=== PATIENT | male | born 1960 | race Caucasian/White ===

== ENCOUNTER → 2017-03-24 | Outpatient (CLI) | payer OTHER ==
[~2017-03-24] MED LIST: AMOCLA500 PO; ASCO500 PO; BISA10S PR; CIME400 PO; Colace100 MG PO; Fludrocortison0.1 MG PO; HYDACE5 PO; HYDCHL25 PO; LIOT5 PO; MULTI-VITAMIN1 EACH PO; OXYC10ER PO; OXYC10TA19 PO; OXYC30ER PO; Prosource30 ML PO; SYNTHROID25 MCG PO
[2017-03-24 09:55] LABS: Hematocrit 37.7 % (37.0-53.0); Hemoglobin 12.5 g/dL (13.5-17.5); Mean Corpuscular HGB 28.9 pg (26.0-34.0); Mean Corpuscular HGB Conc 33.2 g/dL (31.5-36.5); Mean Corpuscular Volume 87 fL (80-100); Mean Platelet Volume 9.9 fL (9.1-12.4); Platelet Count 318 K/mm3 (150-400); RDW Coefficient Variation 15.7 % (11.7-14.2); RDW Standard Deviation 49.3 fL (35.1-46.3); Red Blood Cell Count 4.32 M/mm3 (4.30-5.90); White Blood Cell Count 11.05 K/mm3 (4.00-11.30)
[2017-03-24 10:13] LABS: Alanine Aminotransfer (ALT/SGP 19 U/L (12-78); Albumin, Blood 2.5 g/dL (3.4-5.0); Albumin/Globulin Ratio 0.8 (0.8-1.8); Alk Phos 70 U/L (50-136); Anion Gap 9 mmol/L (6-16); Aspartate Aminotrans (AST/SGOT 9 U/L (12-37); Bilirubin, Total 0.3 mg/dL (0.1-1.0); Blood Urea Nitrogen 7 mg/dL (8-24); Bun/Creatinine Ratio 22.6 (12.0-20.0); CO2, Blood 29 mmol/L (21-32); Calcium, Blood 8.1 mg/dL (8.5-10.1); Chloride, Blood 105 mmol/L (98-108); Creatinine, Blood 0.31 mg/dL (0.60-1.20); Glomerular Filtration Rate >60 (60-); Glucose, Blood 108 mg/dL (70-99); Potassium, Blood 3.4 mmol/L (3.5-5.5); Sodium, Blood 143 mmol/L (136-145); Total Protein, Blood 5.5 g/dL (6.4-8.2)
[2017-03-24 10:16] LABS: Thyroid Stimulating Hormone 0.995 uIU/mL (0.360-4.800)
== END | disposition home or self-care (01) ==
LOC: LAB UVN 09:37
PROVIDERS: Family Medicine
DX: G82.52 Quadriplegia, C1-C4 incomplete (principal); N31.9 Neuromuscular dysfunction of bladder, unspecified; L89.154 Pressure ulcer of sacral region, stage 4
CPT/HCPCS: 80053; 84443; 85027

== ENCOUNTER 2017-05-06 10:22 | Inpatient (IN) | payer OTHER ==
[~2017-05-06] VITALS: Ht 175.3 cm; Wt 86.5 kg
[~2017-05-06 10:22] MED LIST changes: -ASCO500 PO; -BISA10S PR; -CIME400 PO; -Colace100 MG PO; -Fludrocortison0.1 MG PO; -HYDCHL25 PO; -LIOT5 PO; -MULTI-VITAMIN1 EACH PO; -OXYC10ER PO; -OXYC10TA19 PO; -OXYC30ER PO; -Prosource30 ML PO; -SYNTHROID25 MCG PO
[2017-05-06 10:43] LABS: BASOPHILS ABSOLUTE AUTO 0.06 K/mm3 (0.00-0.23); BASOPHILS PERCENT AUTO 0 % (0-2); EOSINOPHILS ABSOLUTE AUTO 0.16 K/mm3 (0.00-0.68); EOSINOPHILS PERCENT AUTO 1 % (0-6); Hematocrit 38.1 % (37.0-53.0); Hemoglobin 12.4 g/dL (13.5-17.5); IMMATURE GRAN ABSOLUTE AUTO 0.28 K/mm3 (0.00-0.10); IMMATURE GRAN PERCENT AUTO 2 % (0-1); LYMPHOCYTES ABSOLUTE AUTO 2.49 K/mm3 (0.84-5.20); LYMPHOCYTES PERCENT AUTO 16 % (21-46); MONOCYTES ABSOLUTE AUTO 1.42 K/mm3 (0.16-1.47); MONOCYTES PERCENT AUTO 9 % (4-13); Mean Corpuscular HGB 27.8 pg (26.0-34.0); Mean Corpuscular HGB Conc 32.5 g/dL (31.5-36.5); Mean Corpuscular Volume 85 fL (80-100); Mean Platelet Volume 8.3 fL (9.1-12.4); NEUTROPHILS ABSOLUTE AUTO 11.44 K/mm3 (1.96-9.15); NEUTROPHILS PERCENT AUTO 72 % (41-73); Platelet Count 385 K/mm3 (150-400); RDW Coefficient Variation 15.4 % (11.7-14.2); RDW Standard Deviation 48.2 fL (35.1-46.3); Red Blood Cell Count 4.46 M/mm3 (4.30-5.90); White Blood Cell Count 15.85 K/mm3 (4.00-11.30)
[2017-05-06 10:58] LABS: Source, Urine Catheter
[2017-05-06 11:01] LABS: Alanine Aminotransfer (ALT/SGP 19 U/L (12-78); Albumin, Blood 2.4 g/dL (3.4-5.0); Albumin/Globulin Ratio 0.7 (0.8-1.8); Alk Phos 59 U/L (50-136); Anion Gap 6 mmol/L (6-16); Aspartate Aminotrans (AST/SGOT 8 U/L (12-37); Bilirubin, Total 0.4 mg/dL (0.1-1.0); Blood Urea Nitrogen 22 mg/dL (8-24); Bun/Creatinine Ratio 17.5 (12.0-20.0); CO2, Blood 31 mmol/L (21-32); Calcium, Blood 8.4 mg/dL (8.5-10.1); Chloride, Blood 100 mmol/L (98-108); Creatinine, Blood 1.26 mg/dL (0.60-1.20); Globulin, Blood 3.4 g/dL (2.2-4.0); Glomerular Filtration Rate >60 (60-); Glucose, Blood 107 mg/dL (70-99); Potassium, Blood 3.2 mmol/L (3.5-5.5); Sodium, Blood 137 mmol/L (136-145); Total Protein, Blood 5.8 g/dL (6.4-8.2)
[2017-05-06 11:23] LABS: Appearance, Urine Turbid (Clear); Color, Urine Yellow (P-Yellow)
[2017-05-06 11:35] LABS: Bilirubin, Urine Neg (Neg); Blood, Urine 4+ (Neg); Glucose Qualitative, Urine Neg (Neg); Ketones, Urine Neg (Neg); Leukocyte Esterase, Urine 3+ (Neg); Nitrite, Urine Pos (Neg); Protein, Urine 3+ (Neg); Specific Gravity, Urine 1.015 (1.003-1.022); Urobilinogen, Urine NORM (Normal)
[2017-05-06 11:45] LABS: White Blood Cells, Urine TNTC /hpf (0-5)
[2017-05-06 11:47] LABS: Bacteria Many /hpf; Squamous Epithelial Cells Not Seen /hpf (Few)
[2017-05-06] MEDS ORDERED: CIME400 PO (11:53)
[2017-05-06] MEDS ORDERED: Colace100 MG PO (11:54)
[2017-05-06] MEDS ORDERED: LIOT5 PO (11:54)
[2017-05-06] MEDS ORDERED: HYDCHL25 PO (11:56)
[2017-05-06] MEDS ORDERED: Fludrocortison0.1 MG PO (11:56)
[2017-05-06] MEDS ORDERED: OXYC10ER PO (11:57)
[2017-05-06] MEDS ORDERED: MULTI-VITAMIN1 EACH PO (11:57)
[2017-05-06] MEDS ORDERED: OXYC30ER PO (11:58)
[2017-05-06] MEDS ORDERED: Prosource30 ML PO (11:58)
[2017-05-06] MEDS ORDERED: ASCO500 PO (11:59)
[2017-05-06] MEDS ORDERED: SYNTHROID25 MCG PO (11:59)
[2017-05-06] MEDS ORDERED: BISA10S PR (12:00)
[2017-05-06] MEDS ORDERED: OXYC10TA19 PO (12:00)
[2017-05-07 04:17] LABS: Hematocrit 33.7 % (37.0-53.0); Hemoglobin 10.9 g/dL (13.5-17.5); Mean Corpuscular HGB 27.5 pg (26.0-34.0); Mean Corpuscular HGB Conc 32.3 g/dL (31.5-36.5); Mean Corpuscular Volume 85 fL (80-100); Mean Platelet Volume 8.4 fL (9.1-12.4); Platelet Count 377 K/mm3 (150-400); RDW Coefficient Variation 15.5 % (11.7-14.2); RDW Standard Deviation 47.8 fL (35.1-46.3); Red Blood Cell Count 3.97 M/mm3 (4.30-5.90); White Blood Cell Count 13.16 K/mm3 (4.00-11.30)
[2017-05-07 04:45] LABS: Anion Gap 7 mmol/L (6-16); Blood Urea Nitrogen 21 mg/dL (8-24); Bun/Creatinine Ratio 27.9 (12.0-20.0); CO2, Blood 29 mmol/L (21-32); Calcium, Blood 8.1 mg/dL (8.5-10.1); Chloride, Blood 105 mmol/L (98-108); Creatinine, Blood 0.75 mg/dL (0.60-1.20); Glomerular Filtration Rate >60 (60-); Glucose, Blood 91 mg/dL (70-99); Potassium, Blood 3.1 mmol/L (3.5-5.5); Sodium, Blood 141 mmol/L (136-145)
[2017-05-09 04:25] LABS: Hematocrit 34.6 % (37.0-53.0); Hemoglobin 11.5 g/dL (13.5-17.5); Mean Corpuscular HGB 27.5 pg (26.0-34.0); Mean Corpuscular HGB Conc 33.2 g/dL (31.5-36.5); Mean Corpuscular Volume 83 fL (80-100); Mean Platelet Volume 8.3 fL (9.1-12.4); Platelet Count 391 K/mm3 (150-400); RDW Coefficient Variation 14.8 % (11.7-14.2); RDW Standard Deviation 44.7 fL (35.1-46.3); Red Blood Cell Count 4.18 M/mm3 (4.30-5.90); White Blood Cell Count 8.03 K/mm3 (4.00-11.30)
[2017-05-09 04:45] LABS: Anion Gap 7 mmol/L (6-16); Blood Urea Nitrogen 11 mg/dL (8-24); Bun/Creatinine Ratio 27.1 (12.0-20.0); CO2, Blood 32 mmol/L (21-32); Calcium, Blood 8.2 mg/dL (8.5-10.1); Chloride, Blood 99 mmol/L (98-108); Creatinine, Blood 0.41 mg/dL (0.60-1.20); Glomerular Filtration Rate >60 (60-); Glucose, Blood 93 mg/dL (70-99); Sodium, Blood 138 mmol/L (136-145)
== END 2017-05-09 23:30 | disposition short-term general hospital (02) | DRG 698 ==
LOC: ER 10:22 → MEDS 12:22 → ICUE 12:22 → PCU 12:22 → ICUW 12:22 → ICUE 13:56 → PCU 17:20 → MEDS 05-07 17:30
PROVIDERS: Emergency Medicine; Internal Medicine
PROC: 02HV33Z Insertion of Infusion Device into Superior Vena Cava, Percutaneous Approach (ICD-10-PCS; principal; 2017-05-06)
DX: T83.511A Infection and inflammatory reaction due to indwelling urethral catheter, initial encounter (principal); A41.9 Sepsis, unspecified organism; R65.21 Severe sepsis with septic shock; G82.52 Quadriplegia, C1-C4 incomplete; G93.40 Encephalopathy, unspecified; J18.9 Pneumonia, unspecified organism; E27.40 Unspecified adrenocortical insufficiency; N17.9 Acute kidney failure, unspecified; N39.0 Urinary tract infection, site not specified; Y84.6 Urinary catheterization as the cause of abnormal reaction of the patient, or of later complication, without mention of misadventure at the time of the procedure; E03.9 Hypothyroidism, unspecified; G89.4 Chronic pain syndrome; F41.9 Anxiety disorder, unspecified; N31.9 Neuromuscular dysfunction of bladder, unspecified; K21.9 Gastro-esophageal reflux disease without esophagitis; B96.1 Klebsiella pneumoniae [K. pneumoniae] as the cause of diseases classified elsewhere; Z87.891 Personal history of nicotine dependence
CPT/HCPCS: 36415; 36556; 70450; 71045; 80048; 80053; 81001; 83605; 84439; 84443; 85025; 85027; 87040; 87077; 87086; 87186; 93005; 93010; 96365; 96367; 96372; 96375; 99285; C1751; J0696; J1650; J1720; J2405; J2543; J3010; J3480; J7030; J7060

== ENCOUNTER 2018-07-27 09:40 | Emergency (ER) | payer OTHER ==
[~2018-07-27] VITALS: Ht 182.9 cm; Wt 70.3 kg
[~2018-07-27 09:40] MED LIST changes: +ASCO500 PO; +BISA10S PR; +CIME400 PO; +Colace100 MG PO; +Fludrocortison0.1 MG PO; +HYDCHL25 PO; +LIOT5 PO; +MULTI-VITAMIN1 EACH PO; +OXYC10ER PO; +OXYC10TA19 PO; +OXYC30ER PO; +Prosource30 ML PO; +SYNTHROID25 MCG PO
== END 2018-07-27 13:45 | disposition home or self-care (01) ==
LOC: ER 09:40
DX: T83.018A Breakdown (mechanical) of other urinary catheter, initial encounter (principal); Z79.899 Other long term (current) drug therapy; Z79.891 Long term (current) use of opiate analgesic; E03.9 Hypothyroidism, unspecified; F32.9 Major depressive disorder, single episode, unspecified; F41.9 Anxiety disorder, unspecified; K21.9 Gastro-esophageal reflux disease without esophagitis; Z87.891 Personal history of nicotine dependence
CPT/HCPCS: 51705; 99283-25; C2627

== ENCOUNTER 2018-08-23 14:09 | Emergency (ER) | payer OTHER ==
[~2018-08-23] VITALS: Ht 177.8 cm; Wt 72.6 kg
[2018-08-23 14:47] LABS: Source, Urine Catheter
[2018-08-23 14:52] LABS: Bilirubin, Urine Neg (Neg); Blood, Urine 5+ (Neg); Glucose Qualitative, Urine Neg (Neg); Ketones, Urine 1+ (Neg); Leukocyte Esterase, Urine 3+ (Neg); Nitrite, Urine Pos (Neg); Protein, Urine 3+ (Neg); Urobilinogen, Urine 1+ (Normal)
[2018-08-23 15:04] LABS: Appearance, Urine Turbid (Clear); Color, Urine Red (P-Yellow)
[2018-08-23 15:06] LABS: Red Blood Cells, Urine TNTC /hpf (0-2); Squamous Epithelial Cells Few /hpf (Few); White Blood Cells, Urine TNTC /hpf (0-5)
[2018-08-23 15:07] LABS: Bacteria Many /hpf
[2018-08-23] MEDS ORDERED: CEFP200 PO (15:42)
== END 2018-08-23 15:15 | disposition home or self-care (01) ==
LOC: ER 14:09
PROVIDERS: Emergency Medicine
DX: T83.038A Leakage of other urinary catheter, initial encounter (principal); E03.9 Hypothyroidism, unspecified; Z87.891 Personal history of nicotine dependence; Z79.899 Other long term (current) drug therapy; Z79.82 Long term (current) use of aspirin
CPT/HCPCS: 51705; 81001; 87086; 99284-25; A9270-GY; C2627

== ENCOUNTER 2018-08-24 15:42 | Emergency (ER) | payer OTHER ==
[~2018-08-24] VITALS: Ht 182.9 cm; Wt 72.6 kg
[~2018-08-24 15:42] MED LIST changes: +CEFP200 PO
[2018-08-24 16:09] LABS: BASOPHILS ABSOLUTE AUTO 0.06 K/mm3 (0.00-0.23); BASOPHILS PERCENT AUTO 1 % (0-2); EOSINOPHILS ABSOLUTE AUTO 0.42 K/mm3 (0.00-0.68); EOSINOPHILS PERCENT AUTO 5 % (0-6); Hematocrit 34.2 % (37.0-53.0); Hemoglobin 11.2 g/dL (13.5-17.5); IMMATURE GRAN ABSOLUTE AUTO 0.02 K/mm3 (0.00-0.10); IMMATURE GRAN PERCENT AUTO 0 % (0-1); LYMPHOCYTES ABSOLUTE AUTO 1.96 K/mm3 (0.84-5.20); LYMPHOCYTES PERCENT AUTO 24 % (21-46); MONOCYTES ABSOLUTE AUTO 0.86 K/mm3 (0.16-1.47); MONOCYTES PERCENT AUTO 10 % (4-13); Mean Corpuscular HGB 29.2 pg (26.0-34.0); Mean Corpuscular HGB Conc 32.7 g/dL (31.5-36.5); Mean Corpuscular Volume 89 fL (80-100); Mean Platelet Volume 8.7 fL (9.1-12.4); NEUTROPHILS ABSOLUTE AUTO 4.91 K/mm3 (1.96-9.15); NEUTROPHILS PERCENT AUTO 60 % (41-73); Platelet Count 311 K/mm3 (150-400); RDW Coefficient Variation 14.4 % (11.7-14.2); RDW Standard Deviation 46.5 fL (35.1-46.3); Red Blood Cell Count 3.84 M/mm3 (4.30-5.90); White Blood Cell Count 8.23 K/mm3 (4.00-11.30)
[2018-08-24 16:37] LABS: Alanine Aminotransfer (ALT/SGP 14 U/L (12-78); Albumin, Blood 3.1 g/dL (3.4-5.0); Albumin/Globulin Ratio 0.9 (0.8-1.8); Alk Phos 94 U/L (50-136); Anion Gap 6 mmol/L (6-16); Aspartate Aminotrans (AST/SGOT 11 U/L (12-37); Blood Urea Nitrogen 11 mg/dL (8-24); Bun/Creatinine Ratio 18.6 (12.0-20.0); CO2, Blood 28 mmol/L (21-32); Calcium, Blood 8.9 mg/dL (8.5-10.1); Chloride, Blood 104 mmol/L (98-108); Creatinine, Blood 0.59 mg/dL (0.60-1.20); Globulin, Blood 3.5 g/dL (2.2-4.0); Glomerular Filtration Rate >60 (60-); Glucose, Blood 83 mg/dL (70-99); Potassium, Blood 3.7 mmol/L (3.5-5.5); Sodium, Blood 138 mmol/L (136-145); Total Protein, Blood 6.6 g/dL (6.4-8.2); Troponin I <0.015 ng/mL (0.000-0.040)
== END 2018-08-24 19:09 | disposition home or self-care (01) ==
LOC: ER 15:42
PROVIDERS: Emergency Medicine
DX: R55 Syncope and collapse (principal); N39.0 Urinary tract infection, site not specified; E03.9 Hypothyroidism, unspecified; Z87.891 Personal history of nicotine dependence; Z79.899 Other long term (current) drug therapy
CPT/HCPCS: 80053; 84484; 85025; 93005; 93010; 99284-25; A9270-GY

== ENCOUNTER 2018-09-01 17:50 | Observation (INO) | payer OTHER ==
[~2018-09-01] VITALS: Ht 182.9 cm; Wt 68.0 kg
[2018-09-01] MEDS ORDERED: BACL20 PO (18:59)
[2018-09-01] MEDS ORDERED: DULO30 PO (18:59)
[2018-09-01] MEDS ORDERED: Aspirin EC81 MG PO (18:59)
[2018-09-01] MEDS ORDERED: ATOR40TA PO (18:59)
[2018-09-01] MEDS ORDERED: LEVSOD50 PO (19:00)
[2018-09-01] MEDS ORDERED: GABA400 PO (19:00)
[2018-09-01] MEDS ORDERED: OLAN2.5 PO (19:01)
[2018-09-01] MEDS ORDERED: TRAZ100 PO (19:02)
[2018-09-01] MEDS ORDERED: ACET325 PO (19:31)
[2018-09-01] MEDS ORDERED: GERI-MOX ANTAC355 ML PO (19:34)
[2018-09-01] MEDS ORDERED: Excedrin Extra1 EACH PO (19:35)
[2018-09-01] MEDS ORDERED: BISA10S PR (19:35)
[2018-09-01] MEDS ORDERED: BISM87SU PO (19:36)
[2018-09-01] MEDS ORDERED: DIPH12.5EL PO (19:37)
[2018-09-01] MEDS ORDERED: CRANBERRY500 M1 PO (19:37)
[2018-09-01] MEDS ORDERED: DOCUSOL PLUS M1 EACH PR (19:38)
[2018-09-01] MEDS ORDERED: FAMO20 PO (19:38)
[2018-09-01] MEDS ORDERED: MIDO5 PO (19:40)
[2018-09-01] MEDS ORDERED: Anti-Diarrheal2 MG PO (19:40)
[2018-09-01] MEDS ORDERED: Senna8.6 MG PO (19:45)
[2018-09-01] MEDS ORDERED: MIRALAX17 GM PO (19:45)
[2018-09-01] MEDS ORDERED: OXYC10TA19 PO (19:46)
[2018-09-01] MEDS ORDERED: HYDCOR2.5C TOP (19:47)
[2018-09-01] MEDS ORDERED: AYR SALINE (19:47)
== END 2018-09-01 23:23 | disposition home or self-care (01) ==
LOC: ER 17:50 → EOR 17:51 → ER 18:38 → EOR 23:23 → ER 23:23 → EOR 23:23
PROVIDERS: ADMIT Emergency Medicine
DX: F32.9 Major depressive disorder, single episode, unspecified (principal); G82.50 Quadriplegia, unspecified; M62.838 Other muscle spasm; F10.11 Alcohol abuse, in remission; F41.9 Anxiety disorder, unspecified; Z79.899 Other long term (current) drug therapy; Z79.82 Long term (current) use of aspirin; E03.9 Hypothyroidism, unspecified; Z87.891 Personal history of nicotine dependence
CPT/HCPCS: 99285; G0378

== ENCOUNTER 2018-09-18 10:01 | Emergency (ER) | payer OTHER ==
[~2018-09-18] VITALS: Ht 182.9 cm; Wt 72.6 kg
[~2018-09-18 10:01] MED LIST changes: +ACET325 PO; +ATOR40TA PO; +AYR SALINE; +Anti-Diarrheal2 MG PO; +Aspirin EC81 MG PO; +BACL20 PO; +BISM87SU PO; +CRANBERRY500 M1 PO; +DIPH12.5EL PO; +DOCUSOL PLUS M1 EACH PR; +DULO30 PO; +Excedrin Extra1 EACH PO; +FAMO20 PO; +GABA400 PO; +GERI-MOX ANTAC355 ML PO; +HYDCOR2.5C TOP; +LEVSOD50 PO; +MIDO5 PO; +MIRALAX17 GM PO; +OLAN2.5 PO; +Senna8.6 MG PO; +TRAZ100 PO
[2018-09-18] MEDS ORDERED: BACL10 PO (10:14)
[2018-09-18 11:20] LABS: Source, Urine Catheter
[2018-09-18 11:34] LABS: Appearance, Urine Hazy (Clear); Bacteria Mod /hpf; Bilirubin, Urine Neg (Neg); Blood, Urine 5+ (Neg); Color, Urine Yellow (P-Yellow); Glucose Qualitative, Urine Neg (Neg); Ketones, Urine Neg (Neg); Leukocyte Esterase, Urine 3+ (Neg); Nitrite, Urine Pos (Neg); Protein, Urine 3+ (Neg); Red Blood Cells, Urine TNTC /hpf (0-2); Squamous Epithelial Cells Not Seen /hpf (Few); Urobilinogen, Urine NORM (Normal); White Blood Cells, Urine TNTC /hpf (0-5)
[2018-09-18] MEDS ORDERED: CEPH500 PO (11:47)
== END 2018-09-18 13:28 | disposition home or self-care (01) ==
LOC: ER 10:01
PROVIDERS: Emergency Medicine
DX: T83.091A Other mechanical complication of indwelling urethral catheter, initial encounter (principal); N39.0 Urinary tract infection, site not specified; Z88.2 Allergy status to sulfonamides; Z88.1 Allergy status to other antibiotic agents; Z88.8 Allergy status to other drugs, medicaments and biological substances; Z79.899 Other long term (current) drug therapy; Z79.82 Long term (current) use of aspirin; E03.9 Hypothyroidism, unspecified; Z87.891 Personal history of nicotine dependence
CPT/HCPCS: 51705; 81001; 87077; 87086; 87186; 99283-25; C2627

== ENCOUNTER 2018-10-14 06:32 | Emergency (ER) | payer OTHER ==
[~2018-10-14] VITALS: Ht 182.9 cm; Wt 72.6 kg
[~2018-10-14 06:32] MED LIST changes: +BACL10 PO; +CEPH500 PO
[2018-10-14 11:40] LABS: Chloride (POC) 101 mmol/L (98-108); Creatinine (POC) 0.6 mg/dL (0.8-1.3); Glucose (ISTAT POC) 95 mg/dL (70-99); Hemoglobin (POC) 11.6 g/dL (13.5-17.5); Potassium (POC) 4.1 mmol/L (3.5-5.5); Sodium (POC) 135 mmol/L (135-148); Total CO2 (POC) 28 mmol/L (21-32)
[2018-10-14 13:20] LABS: Chloride (POC) 101 mmol/L (98-108); Creatinine (POC) 0.6 mg/dL (0.8-1.3); Glucose (ISTAT POC) 82 mg/dL (70-99); Hemoglobin (POC) 10.5 g/dL (13.5-17.5); Potassium (POC) 3.6 mmol/L (3.5-5.5); Sodium (POC) 137 mmol/L (135-148); Total CO2 (POC) 27 mmol/L (21-32)
== END 2018-10-14 17:02 | disposition home or self-care (01) ==
LOC: ER 06:32
PROVIDERS: Emergency Medicine
DX: Z46.6 Encounter for fitting and adjustment of urinary device (principal); N21.0 Calculus in bladder; E03.9 Hypothyroidism, unspecified; Z88.2 Allergy status to sulfonamides; Z88.8 Allergy status to other drugs, medicaments and biological substances; Z88.1 Allergy status to other antibiotic agents; Z79.899 Other long term (current) drug therapy; Z79.82 Long term (current) use of aspirin; Z87.891 Personal history of nicotine dependence
CPT/HCPCS: 36415; 51705; 72170; 72193; 80047; 85014; 96360-59; 96361-59; 99284-25; C2627; J7030; Q9967

== ENCOUNTER 2018-10-20 20:53 | Emergency (ER) | payer OTHER ==
[~2018-10-20] VITALS: Ht 182.9 cm; Wt 72.6 kg
[2018-10-20 23:30] LABS: Calcium, Ionized (POC) 1.16 mmol/L (1.10-1.46); Chloride (POC) 101 mmol/L (98-108); Creatinine (POC) 0.6 mg/dL (0.8-1.3); Glucose (ISTAT POC) 104 mg/dL (70-99); Hemoglobin (POC) 10.5 g/dL (13.5-17.5); Potassium (POC) 3.6 mmol/L (3.5-5.5); Sodium (POC) 139 mmol/L (135-148); Total CO2 (POC) 29 mmol/L (21-32)
== END 2018-10-21 01:17 | disposition home or self-care (01) ==
LOC: ER 20:53
PROVIDERS: Emergency Medicine
DX: Z46.6 Encounter for fitting and adjustment of urinary device (principal); I10 Essential (primary) hypertension; N31.9 Neuromuscular dysfunction of bladder, unspecified; Z88.2 Allergy status to sulfonamides; Z88.8 Allergy status to other drugs, medicaments and biological substances; Z79.899 Other long term (current) drug therapy; Z79.82 Long term (current) use of aspirin; E03.9 Hypothyroidism, unspecified; Z87.891 Personal history of nicotine dependence
CPT/HCPCS: 80047; 85014; 99283

== ENCOUNTER 2018-11-04 08:56 | Emergency (ER) | payer OTHER ==
[~2018-11-04] VITALS: Ht 177.8 cm; Wt 72.6 kg
== END 2018-11-04 11:38 | disposition home or self-care (01) ==
LOC: ER 08:56
DX: T83.091A Other mechanical complication of indwelling urethral catheter, initial encounter (principal); S60.421A Blister (nonthermal) of left index finger, initial encounter; Z87.891 Personal history of nicotine dependence; Z88.2 Allergy status to sulfonamides; Z88.1 Allergy status to other antibiotic agents; Z79.899 Other long term (current) drug therapy; Z79.82 Long term (current) use of aspirin; Z79.891 Long term (current) use of opiate analgesic; X58.XXXA Exposure to other specified factors, initial encounter
CPT/HCPCS: 51705; 99283-25; C2627

== ENCOUNTER 2018-11-08 21:10 | Emergency (ER) | payer OTHER ==
[~2018-11-08] VITALS: Ht 182.9 cm; Wt 72.6 kg
[2018-11-08] MEDS ORDERED: DULO30 PO (21:27)
[2018-11-08] MEDS ORDERED: OLAN2.5 PO (21:28)
== END 2018-11-09 01:23 | disposition home or self-care (01) ==
LOC: ER 21:10
DX: T83.098A Other mechanical complication of other urinary catheter, initial encounter (principal); Z88.2 Allergy status to sulfonamides; Z88.0 Allergy status to penicillin; Z88.8 Allergy status to other drugs, medicaments and biological substances; Z79.82 Long term (current) use of aspirin; Z79.899 Other long term (current) drug therapy; E03.9 Hypothyroidism, unspecified; E27.40 Unspecified adrenocortical insufficiency; Z87.891 Personal history of nicotine dependence
CPT/HCPCS: 51705; 51798; 99283-25; C2627

== ENCOUNTER 2018-11-13 12:57 | Emergency (ER) | payer OTHER ==
[~2018-11-13] VITALS: Ht 182.9 cm; Wt 74.8 kg
== END 2018-11-13 20:30 | disposition home or self-care (01) ==
LOC: ER 12:57
DX: T83.098A Other mechanical complication of other urinary catheter, initial encounter (principal); E03.9 Hypothyroidism, unspecified; Z87.891 Personal history of nicotine dependence; Z88.2 Allergy status to sulfonamides; Z79.899 Other long term (current) drug therapy; Z79.82 Long term (current) use of aspirin
CPT/HCPCS: 51705; 51798; 99283-25; C2627

== ENCOUNTER 2018-12-04 20:32 | Emergency (ER) | payer OTHER ==
[~2018-12-04] VITALS: Ht 182.9 cm; Wt 77.1 kg
[2018-12-05 00:20] LABS: Calcium, Ionized (POC) 1.24 mmol/L (1.10-1.46); Chloride (POC) 101 mmol/L (98-108); Creatinine (POC) 0.6 mg/dL (0.8-1.3); Glucose (ISTAT POC) 95 mg/dL (70-99); Hemoglobin (POC) 11.2 g/dL (13.5-17.5); Sodium (POC) 140 mmol/L (135-148); Total CO2 (POC) 30 mmol/L (21-32)
== END 2018-12-05 02:24 | disposition home or self-care (01) ==
LOC: ER 20:32
PROVIDERS: Physician Assistant
DX: T83.090A Other mechanical complication of cystostomy catheter, initial encounter (principal); E03.9 Hypothyroidism, unspecified; Z88.2 Allergy status to sulfonamides; Z88.1 Allergy status to other antibiotic agents; Z88.8 Allergy status to other drugs, medicaments and biological substances; Z79.899 Other long term (current) drug therapy; Z79.82 Long term (current) use of aspirin
CPT/HCPCS: 36415; 51705; 51798; 80047; 85014; 99284-25; C2627

== ENCOUNTER 2018-12-15 10:48 | Emergency (ER) | payer OTHER ==
[~2018-12-15] VITALS: Ht 182.9 cm; Wt 77.1 kg
[~2018-12-15 10:48] MED LIST changes: +OLAN5 PO
[2018-12-15 11:34] LABS: BASOPHILS PERCENT AUTO 1 % (0-2); EOSINOPHILS ABSOLUTE AUTO 0.52 K/mm3 (0.00-0.68); EOSINOPHILS PERCENT AUTO 7 % (0-6); Hematocrit 36.5 % (37.0-53.0); Hemoglobin 11.7 g/dL (13.5-17.5); IMMATURE GRAN ABSOLUTE AUTO 0.03 K/mm3 (0.00-0.10); IMMATURE GRAN PERCENT AUTO 0 % (0-1); LYMPHOCYTES ABSOLUTE AUTO 2.01 K/mm3 (0.84-5.20); LYMPHOCYTES PERCENT AUTO 28 % (21-46); MONOCYTES ABSOLUTE AUTO 0.63 K/mm3 (0.16-1.47); MONOCYTES PERCENT AUTO 9 % (4-13); Mean Corpuscular HGB 27.7 pg (26.0-34.0); Mean Corpuscular HGB Conc 32.1 g/dL (31.5-36.5); Mean Corpuscular Volume 87 fL (80-100); Mean Platelet Volume 8.2 fL (9.1-12.4); NEUTROPHILS ABSOLUTE AUTO 4.02 K/mm3 (1.96-9.15); NEUTROPHILS PERCENT AUTO 55 % (41-73); Platelet Count 446 K/mm3 (150-400); RDW Coefficient Variation 14.6 % (11.7-14.2); RDW Standard Deviation 46.5 fL (35.1-46.3); Red Blood Cell Count 4.22 M/mm3 (4.30-5.90); White Blood Cell Count 7.31 K/mm3 (4.00-11.30)
[2018-12-15 11:53] LABS: Anion Gap 5 mmol/L (6-16); Blood Urea Nitrogen 10 mg/dL (8-24); Bun/Creatinine Ratio 17.7 (12.0-20.0); CO2, Blood 28 mmol/L (21-32); Chloride, Blood 106 mmol/L (98-108); Creatinine, Blood 0.56 mg/dL (0.60-1.20); Glomerular Filtration Rate >60 (60-); Glucose, Blood 100 mg/dL (70-99); Potassium, Blood 3.7 mmol/L (3.5-5.5); Sodium, Blood 139 mmol/L (136-145)
[2018-12-15 12:59] LABS: Source, Urine Catheter
[2018-12-15 13:11] LABS: Bilirubin, Urine Neg (Neg); Blood, Urine 5+ (Neg); Glucose Qualitative, Urine Neg (Neg); Ketones, Urine Neg (Neg); Leukocyte Esterase, Urine 3+ (Neg); Nitrite, Urine Pos (Neg); Protein, Urine 2+ (Neg); Specific Gravity, Urine 1.015 (1.003-1.022); Urobilinogen, Urine NORM (Normal)
[2018-12-15 13:22] LABS: Appearance, Urine Cloudy (Clear); Color, Urine Yellow (P-Yellow)
[2018-12-15 13:26] LABS: Squamous Epithelial Cells Rare /hpf (Few); White Blood Cells, Urine 50-100 /hpf (0-5)
[2018-12-15 13:27] LABS: Amorphous Light (0-Heavy); Bacteria Many /hpf
[2018-12-15] MEDS ORDERED: BACL20 PO (13:42)
[2018-12-15] MEDS ORDERED: TRAZ100 PO (13:44)
[2018-12-15] MEDS ORDERED: Cipro500 MG PO (14:19)
[2018-12-15] MEDS ORDERED: CEPH500 PO (14:19)
== END 2018-12-15 18:02 | disposition home or self-care (01) ==
LOC: ER 10:48
PROVIDERS: Emergency Medicine
DX: T83.091A Other mechanical complication of indwelling urethral catheter, initial encounter (principal); N39.0 Urinary tract infection, site not specified; G82.50 Quadriplegia, unspecified; E03.9 Hypothyroidism, unspecified; Z87.891 Personal history of nicotine dependence; Z88.2 Allergy status to sulfonamides; Z88.1 Allergy status to other antibiotic agents; Z79.899 Other long term (current) drug therapy; Z79.82 Long term (current) use of aspirin
CPT/HCPCS: 36415; 51705; 80048; 81001; 83605; 85025; 87086; 96365-59; 96367-59; 96375-59; 99283-25; C2627; J0696; J1885; J1956; J7030

== ENCOUNTER 2019-01-14 14:33 | Inpatient (IN) | payer OTHER ==
[~2019-01-14] VITALS: Ht 177.8 cm; Wt 76.1 kg
[~2019-01-14 14:33] MED LIST changes: +Cipro500 MG PO
[2019-01-14 15:30] LABS: Calcium, Ionized (POC) 1.23 mmol/L (1.10-1.46); Chloride (POC) 104 mmol/L (98-108); Creatinine (POC) 0.6 mg/dL (0.8-1.3); Glucose (ISTAT POC) 88 mg/dL (70-99); Hemoglobin (POC) 11.2 g/dL (13.5-17.5); Potassium (POC) 4.4 mmol/L (3.5-5.5); Sodium (POC) 139 mmol/L (135-148); Total CO2 (POC) 31 mmol/L (21-32)
[2019-01-14 15:55] LABS: Alanine Aminotransfer (ALT/SGP 17 U/L (12-78); Albumin/Globulin Ratio 0.9 (0.8-1.8); Alk Phos 96 U/L (50-136); Anion Gap 5 mmol/L (6-16); Aspartate Aminotrans (AST/SGOT 17 U/L (12-37); Bilirubin, Total 0.2 mg/dL (0.1-1.0); Blood Urea Nitrogen 13 mg/dL (8-24); Bun/Creatinine Ratio 21.9 (12.0-20.0); CO2, Blood 26 mmol/L (21-32); Calcium, Blood 8.6 mg/dL (8.5-10.1); Chloride, Blood 107 mmol/L (98-108); Creatinine, Blood 0.59 mg/dL (0.60-1.20); Globulin, Blood 3.4 g/dL (2.2-4.0); Glomerular Filtration Rate >60 (60-); Glucose, Blood 83 mg/dL (70-99); Potassium, Blood 4.4 mmol/L (3.5-5.5); Sodium, Blood 138 mmol/L (136-145); Total Protein, Blood 6.4 g/dL (6.4-8.2)
[2019-01-14 16:12] LABS: Source, Urine Catheter
[2019-01-14 16:15] LABS: Bilirubin, Urine Neg (Neg); Blood, Urine 5+ (Neg); Glucose Qualitative, Urine Neg (Neg); Ketones, Urine Neg (Neg); Leukocyte Esterase, Urine 3+ (Neg); Nitrite, Urine Pos (Neg); Protein, Urine 3+ (Neg); Urobilinogen, Urine NORM (Normal)
[2019-01-14 16:16] LABS: BASOPHILS ABSOLUTE AUTO 0.07 K/mm3 (0.00-0.23); BASOPHILS PERCENT AUTO 1 % (0-2); EOSINOPHILS ABSOLUTE AUTO 0.36 K/mm3 (0.00-0.68); EOSINOPHILS PERCENT AUTO 4 % (0-6); Hematocrit 42.8 % (37.0-53.0); Hemoglobin 13.2 g/dL (13.5-17.5); IMMATURE GRAN ABSOLUTE AUTO 0.02 K/mm3 (0.00-0.10); IMMATURE GRAN PERCENT AUTO 0 % (0-1); LYMPHOCYTES ABSOLUTE AUTO 1.62 K/mm3 (0.84-5.20); LYMPHOCYTES PERCENT AUTO 20 % (21-46); MONOCYTES PERCENT AUTO 6 % (4-13); Mean Corpuscular HGB 28.1 pg (26.0-34.0); Mean Corpuscular HGB Conc 30.8 g/dL (31.5-36.5); Mean Corpuscular Volume 91 fL (80-100); Mean Platelet Volume 8.8 fL (9.1-12.4); NEUTROPHILS ABSOLUTE AUTO 5.75 K/mm3 (1.96-9.15); NEUTROPHILS PERCENT AUTO 69 % (41-73); Platelet Count 311 K/mm3 (150-400); RDW Coefficient Variation 14.6 % (11.7-14.2); RDW Standard Deviation 48.8 fL (35.1-46.3); White Blood Cell Count 8.32 K/mm3 (4.00-11.30)
[2019-01-14 16:19] LABS: Appearance, Urine Hazy (Clear); Color, Urine Yellow (P-Yellow)
[2019-01-14 16:21] LABS: Amorphous Heavy (0-Heavy); Bacteria Many /hpf; Mucus Light (0-Heavy); Squamous Epithelial Cells Rare /hpf (Few); Triple Phosphate Crystals Mod /hpf; White Blood Cells, Urine TNTC /hpf (0-5)
[2019-01-14] MEDS ORDERED: MIDO5 PO (17:00)
[2019-01-15 04:05] LABS: BASOPHILS ABSOLUTE AUTO 0.01 K/mm3 (0.00-0.23); BASOPHILS PERCENT AUTO 0 % (0-2); EOSINOPHILS ABSOLUTE AUTO 0.01 K/mm3 (0.00-0.68); EOSINOPHILS PERCENT AUTO 0 % (0-6); Hematocrit 36.6 % (37.0-53.0); Hemoglobin 11.6 g/dL (13.5-17.5); IMMATURE GRAN ABSOLUTE AUTO 0.01 K/mm3 (0.00-0.10); IMMATURE GRAN PERCENT AUTO 0 % (0-1); LYMPHOCYTES ABSOLUTE AUTO 0.61 K/mm3 (0.84-5.20); LYMPHOCYTES PERCENT AUTO 14 % (21-46); MONOCYTES ABSOLUTE AUTO 0.04 K/mm3 (0.16-1.47); MONOCYTES PERCENT AUTO 1 % (4-13); Mean Corpuscular HGB 27.2 pg (26.0-34.0); Mean Corpuscular HGB Conc 31.7 g/dL (31.5-36.5); Mean Platelet Volume 8.7 fL (9.1-12.4); NEUTROPHILS ABSOLUTE AUTO 3.73 K/mm3 (1.96-9.15); NEUTROPHILS PERCENT AUTO 85 % (41-73); Platelet Count 307 K/mm3 (150-400); RDW Coefficient Variation 14.6 % (11.7-14.2); RDW Standard Deviation 45.5 fL (35.1-46.3); Red Blood Cell Count 4.27 M/mm3 (4.30-5.90); White Blood Cell Count 4.41 K/mm3 (4.00-11.30)
[2019-01-15 04:07] LABS: Mean Corpuscular Volume 86 fL (80-100)
[2019-01-15 04:25] LABS: Alanine Aminotransfer (ALT/SGP 17 U/L (12-78); Albumin, Blood 3.3 g/dL (3.4-5.0); Albumin/Globulin Ratio 0.9 (0.8-1.8); Alk Phos 107 U/L (50-136); Anion Gap 5 mmol/L (6-16); Aspartate Aminotrans (AST/SGOT 12 U/L (12-37); Bilirubin, Total 0.4 mg/dL (0.1-1.0); Blood Urea Nitrogen 13 mg/dL (8-24); Bun/Creatinine Ratio 21.6 (12.0-20.0); CO2, Blood 28 mmol/L (21-32); Calcium, Blood 8.7 mg/dL (8.5-10.1); Chloride, Blood 110 mmol/L (98-108); Globulin, Blood 3.8 g/dL (2.2-4.0); Glomerular Filtration Rate >60 (60-); Glucose, Blood 136 mg/dL (70-99); Potassium, Blood 3.6 mmol/L (3.5-5.5); Sodium, Blood 143 mmol/L (136-145); Total Protein, Blood 7.1 g/dL (6.4-8.2)
--- NOTE | 2019-01-15 06:00 | NUR ---
SHIFT SUMMARY. ASSUMED CARE AT 1900. DENIES PAIN AND CONVERSIVE ABOUT CONDITION AND CARE. NOT SURE OF ALL MEDS AND WILL WAIT FOR [facility] TO SEND. SPOKE W/ LEYLA AT HOME AND SHE MENTIONED HE HAS HX OF BLADDER STONES AND DUE TO HAVE REMOVAL. STAFF AT HIS HOME IRRIGATES BID TO MAKE SURE NO OBSTRUCTION.LEFT SYSTEM CLOSED AND INSTILLED 40 ML NS TO SUPRAPUBIC CATH. RETURNED QUICKLY AND REMAINS CLOUDY YELLOW. BP REPORTED TO [facility] AT ABOUT 2100 DUE TO LOW BP AND ORDERS LEFT. BP IMPROVES THRU NOC AND IVF CONT AT 150HR. REFUSED TRAZADONE AND PAIN MED LAST NOC.NO PAIN MED DESIRED WHEN QUESTIONED ABOUT PAIN AFTER GETTING HIM UP W/ SLING TO [facility] TO TRY TO HAVE BM. NO SUCCESS. MUST EFFORT IN TRYING TO HAVE BM. NO REPORT OF DIZZINESS OR SYNCOPAL EPISODE W/ THIS ACTIVITY. VERY EXHAUSED AND AGGITATED BY ALL THIS EFFORT AND LACK OF SLEEP ALL NOC. REQUESTS BACLOFEN FOR EXCESSIVE MUSCLE SPASMS AFTER THIS OOB EFFORT. BUT CONT TO REFUSE PAIN MED. WANTS COVERS OVER HIS HEAD AND TO BE LEFT ALONE. REPOSITIONED Q 2 HR . PHOTO FOR COCCYX SORES. SKIN NOT BROKEN THRU. WILL COVER LATER WHEN PT HAS RESTED . REFUSED HS SNACK AND ONLY TAKES AND TOLERATES FLUIDS,.SR. RED HEELS AND PROTECTORS ON
--- NOTE | 2019-01-15 07:41 | NUR ---
ASSUMED CARE: PT RESTING QUIETLY IN BED. DENIES NEEDS OR CONCERNS.
--- NOTE | 2019-01-15 08:29 | NUR ---
ATTEMPTED TO GET BLOOD PRESSURE ON LEFT ARM. DID NOT TAKE. WENT TO SWITCH ARMS AND PT REFUSED TO HAVE IT RECHECKED. STATES HE WANTS TO REST. TOLD HIM WE WOULD TRY AGAIN LATER. REQUESTED MEDS AT A LATER TIME WELL.
--- NOTE | 2019-01-15 08:43 | NUR ---
DR MATTHEWS WENT INTO SEE PT. AWARE THAT HE REFUSED BLOOD PRESSURES THIS AM. WHEN WENT INTO SEE PT, PT SAID HE WANTED TO SLEEP AND BE LEFT ALONE.
[2019-01-15] MEDS ORDERED: MIRALAX17 GM PO (09:53)
[2019-01-15] MEDS ORDERED: OCEAN104 ML (09:56)
[2019-01-15] MEDS ORDERED: Pedi-Dri 100,0060 GM TOP (09:58)
[2019-01-15] MEDS ORDERED: Pepto-Bism525 MG/15 PO (09:59)
--- NOTE | 2019-01-15 10:22 | NUR ---
PT BEGAN HAVING SEVERE MUSCLE SPASMS OF BILATERAL ARMS. THRASHING ARMS REMOVED IV ON LEFT WRIST. PT WAS SWEARING AND REPEATING PLEASE OVER AND OVER. ATTEMPTED TO ASK WHAT HELPS OR WHAT WE CAN DO BUT WA UNABLE TO ARTICULATE WORDS BEYOND THE SWEARING AND SAYING PLEASE. ORAL PAIN MEDS GIVEN BUT SPASMS TOO SEVER TO TAKE PO GABAPENTIN. CALL TO DR MATTHEWS FOR IV MED, ATIVAN ORDERED AND ADMINISTERED. INSTRUCTIONAL LEADER AWARE AND AT THE BEDSIDE. PT RESTING QUIETLY AT THIS TIME
[2019-01-15] MEDS ORDERED: ENEMEEZ PLUS MIN5 ML PR (10:26)
[2019-01-15] MEDS ORDERED: FAMO20 PO (10:27)
[2019-01-15] MEDS ORDERED: SENN187 PO (10:28)
[2019-01-15] MEDS ORDERED: AZO CRANBERRY1 EAC1 PO (10:29)
[2019-01-15] MEDS ORDERED: BENADRYL25 MG PO (10:50)
[2019-01-15] MEDS ORDERED: HYDCOR2.5C TOP (10:57)
[2019-01-15] MEDS ORDERED: BACL10 PO (10:58)
--- NOTE | 2019-01-15 16:25 | NUR ---
SHIFT SUMMARY: PT JUST ARRIVED FROM PCU 16. HE WAS ASSISTED TO HIS NEW ROOM AND ORIENTED TO HIS NEW ROOM, CALL LIGHT AND NURSING TEAM. PT IS A/O X 4 AND REQUESTED FOR HIS LIGHT TO BE TURNED OUT AND TO GO BACK TO SLEEP. HE HAS HIS TOUCH PAD CALL LIGHT IN REACH AND IS ABLE TO MAKE HIS NEEDS KNOWN.
--- NOTE | 2019-01-15 17:34 | NUR ---
REPORT CALLED TO RN ON MEDICAL FLOOR. NURSE AWARE OF PT'S LETHARGY AND EPISODE OF SPASMS THIS AM. PT STILL LETHARGIC BUT ANSWERING QUESTIONS APPROPRIATELY. NURSE DENIED FURTHER QUESTIONS OR CONCERNS.
--- NOTE | 2019-01-15 20:24 | NUR ---
PT WAS FOUND HARD TO WAKE UP AND WAS NOTIFIED BY RUDY. STERNAL RUB WAS PERFORMED AND PT WOKE UP AFTER. TRAZODONE AND ZYPREXA HELD. REPOSITIONED AT THIS TIME. DENIED PAIN, NAUSEA AND DIZZINIESS.
--- NOTE | 2019-01-16 03:41 | NUR ---
AUTOMATIC PAINT SPRAYER OPERATOR SUMMARY PT A/OX4. DENIES PAIN, NAUSEA AND DIZZINIESS. SUBRAPUBIC CATH PATENT AND DRAINING CLEAR YELLOW URINE. PT SLEPT WELL THROUGHOUT THE NIGHT. REFUESED TO BE REPOSITIONED Q2 HOURS AND WANTED TO BE TURNED LESS FREQUENTLY. YELLS OUT FOR HELP WHEN STAFF IS NEEDED. PT BECAME FRUSTRATED WITH BED SHEETS AND LIKE EYES TO BE COVERED. EYEMASK PROVIDED. NO ACUTE CHANGES. WILL CONTINUE TO MONITOR.
--- NOTE | 2019-01-16 04:10 | NUR ---
PT HEARD TO BE MOANING AND SWEARING. WENT IN TO CHECK ON PT. WHEN ASKED WHAT WAS WRONG PT KEPT MOANING AND DOES NOT COMMUNICATE WHAT IS WRONG. DENIED PAIN. PT DID NOT WANT ANYTHING TO DRINK WHEN OFFERED AND DID NOT WANT TO BE BOTHERED. OTHER DISTRACTION METHODS WERE OFFERED. WHEN NURSE ENTERED ROOM PT STATED "DO YOU GUYS HAVE TO COME IN MUCH ALL THE TIME" PT STATED HE "WANTS TO BE LEFT ALONE" KELLER DRAINING DARK YELLOW URINE. WILL CONTINUE TO MONITOR.
--- NOTE | 2019-01-16 05:51 | NUR ---
HOSPITALIST DR. HAWKINS WAS CALLED ABOUT PT'S SITATION. ATIVAN P0 0.5 MG ORDERED.
--- NOTE | 2019-01-16 07:39 | NUR ---
AM ASSESMENT PT YELLING HELP ME AND VERY AGITATED. PT REFUSED CARE AND MEDICATION. PT TOLD STAFF "TO GET OUT".
--- NOTE | 2019-01-16 18:37 | NUR ---
Received call from Palliative Care Owner Operator Tanker Truck Driver Amy. Amy expresses concerns regarding Pt experiencing distress. Arrived to Pt's room and Pt is yelling out help but is not able to elaborate or communicate reason for distress. Discussed case with RNs Roseann and Dayana. Concern of constipation or impaction was discussed. Called and spoke with Dr Sloan and discussed case. Placed order for Fleet Enema, Ananya S, and Dolculax PRN, and discontinued colace per V/O from Dr Sloan. Assisted Dayana in positioning Pt to receive enema and placed Pt on bed dia. Little success with enema Pt having a small BM. Discussed case further with Dr Sloan for managment of Pt's anxiety and agitation including consideration of scheduled seroquel. Pt has been experiencing significant anxiety and agitation since yesterday. Dr Sloan orders for Pt to receive his 2100 dose of Zyprexa now. Relayed order to bedside RN Roseann who will offer medication. Palliative Care will remain available.
--- NOTE | 2019-01-16 19:35 | NUR ---
SHIFT SUMMARY PT WAS ANXIOUS AND AGITATED IV ATIVAN WAS GIVEN AND SLEPT MOST OR THE DAY. PLEASENT WHEN AWAKENED. REFUSED ALL MEALS THIS SHIFT. PT BECAME AGITATED AGIAN THIS EVENING. PT WAS COMPLAINING OF NEEDING TO HAVE BM, ENEMA AND SUPPOSITORY GIVEN. PT HAS SMALL BM. DOCTOR NOTIFIED SEVERAL TIMES THAT PT WAS AGITATED AND ZYPREXA WAS GIVEN EARLY PER DR ORDERS. PT TRANSFERED TO ROOM 352 AND REPORT GIVEN TO JOSHUA BAINS.
--- NOTE | 2019-01-17 08:04 | NUR ---
EXTENSION SERVICE SUPERVISOR SUMMARY. (LATE NOTE) patient started evening yelling out help help help. Then Please Please. unable to elaborate on his fears or concerns, patient finally fell asleep. about 0300, Patient again started yelling out please and help. this time, he was scratching at his chest, and patting at his abd. (he had had 2 large stools overnight) when asked, he agreed he was having a lot of abd. pain.2 Roxycodone and prn baclofen given without result. patient still yelling. Blood pressure 184/105 with HR of 134. MD called and 1X order for ativan given with good result approximately 1/2 hour after dosing
--- NOTE | 2019-01-17 10:27 | NUR ---
PT REFUSED VITAL SIGN CHECK AND MEDICATIONS X2 PT STATES "I REALLY JUST NEED TO SLEEP AND I DON'T I HAVE THE RIGHT TO REFUSE". REPORTED TO DR. MATTHEWS.
[2019-01-17] MEDS ORDERED: CEFU500T30 PO (11:21)
[2019-01-17] MEDS ORDERED: MIDO5 PO (11:21)
--- NOTE | 2019-01-17 14:30 | NUR ---
SPOKE WITH DR. MATTHEWS ABOUT PT'S +BLOOD CULTURES. PT GIVEN OPTION TO STAY OVERNIGHT TO RECEIVE LABS AND APPROPRIATE THERAPY TOMORROW BUT HAS CHOSEN TO GO BACK TO ASSISTED LIVING TODAY. PT INFORMED THAT HE MAY IN FACT HAVE TO RETURN TO HOSPITAL FOR TREATMENT DEPENDING ADDITIONAL CULTURE REPORT. TRANSPORT @1700.
--- NOTE | 2019-01-17 19:11 | NUR ---
PT SLEEPING IN RECLINER; RR EVEN AND UNLABORED.
--- NOTE | 2019-01-18 07:48 | NUR ---
CONSULTING PRACTICE DIRECTOR SUMMARY Patient much more comfortable and A&O tonight. c/o pain right shoulder that comes intermittantly. relieved with 2 oxycodone. buttocks still red. silicone and barrier cream used to protect from stool. patient transferred by lift back to bed, and slept well most of night. 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 patient concerned that he wouldn't be able to go home today. told him I didn't think he couldn't be treated orally for MRSA. Pt said he would talk to MD about it today. Anxious for DC.
[2019-01-18] MEDS ORDERED: CEFU500T30 PO (13:17)
[2019-01-18] MEDS ORDERED: DOXY100 PO (13:18)
--- NOTE | 2019-01-18 13:43 | NUR ---
PT CAREGIVER UPDATED PT CAREGIVER, YOSEF UPDATED ON PT DC PICKUP TIME. PT MEDS SENT TO [facility].
--- NOTE | 2019-01-18 17:36 | NUR ---
PT DISCHARGED PT DISCHARGED IN STABLE CONDITION. VSS. PT DC INSTRUCTIONS SENT WITH TRANSPORT. PT TRANSPORTED VIA [place] BY [facility]. PT CAREGIVER, YOSEF NOTIFIED OF DC TIME & NEW MEDS.
== END 2019-01-18 17:33 | disposition home or self-care (01) | DRG 698 ==
LOC: ER 14:33 → PCU 16:54 → ERHOLD 16:54 → PCU 17:59 → MEDS 01-15 16:34 → ENPENDDIS 01-17 11:15 → MEDS 01-18 06:12
PROVIDERS: Emergency Medicine; ADMIT Hospitalist
DX: T83.511A Infection and inflammatory reaction due to indwelling urethral catheter, initial encounter (principal); A41.9 Sepsis, unspecified organism; R65.20 Severe sepsis without septic shock; G82.50 Quadriplegia, unspecified; E27.40 Unspecified adrenocortical insufficiency; B95.62 Methicillin resistant Staphylococcus aureus infection as the cause of diseases classified elsewhere; B96.4 Proteus (mirabilis) (morganii) as the cause of diseases classified elsewhere; N39.0 Urinary tract infection, site not specified; I95.9 Hypotension, unspecified; F32.9 Major depressive disorder, single episode, unspecified; H54.7 Unspecified visual loss; G90.4 Autonomic dysreflexia; E03.9 Hypothyroidism, unspecified; K21.9 Gastro-esophageal reflux disease without esophagitis; G89.29 Other chronic pain; Z88.2 Allergy status to sulfonamides; Z88.8 Allergy status to other drugs, medicaments and biological substances; Z87.891 Personal history of nicotine dependence; Z79.82 Long term (current) use of aspirin; Z79.899 Other long term (current) drug therapy
CPT/HCPCS: 36415; 36416; 70450; 71045; 80047; 80053; 81001; 83605; 85014; 85025; 87040; 87077; 87086; 87147; 87186; 93005; 93010; 96361; 96365; 96375; 99285-25; A9270; J0696; J1650; J1720; J2060; J2543; J7030; J7050

== ENCOUNTER 2019-01-24 09:00 | Inpatient (IN) | payer OTHER ==
[~2019-01-24] VITALS: Ht 177.8 cm; Wt 75.3 kg
[~2019-01-24 09:00] MED LIST changes: +AZO CRANBERRY1 EAC1 PO; +BENADRYL25 MG PO; +CEFU500T30 PO; +DOXY100 PO; +ENEMEEZ PLUS MIN5 ML PR; +OCEAN104 ML; +Pedi-Dri 100,0060 GM TOP; +Pepto-Bism525 MG/15 PO; +SENN187 PO
[2019-01-24 09:55] LABS: BASOPHILS ABSOLUTE AUTO 0.06 K/mm3 (0.00-0.23); BASOPHILS PERCENT AUTO 0 % (0-2); EOSINOPHILS ABSOLUTE AUTO 0.06 K/mm3 (0.00-0.68); EOSINOPHILS PERCENT AUTO 0 % (0-6); Hematocrit 39.2 % (37.0-53.0); Hemoglobin 13.1 g/dL (13.5-17.5); IMMATURE GRAN ABSOLUTE AUTO 0.05 K/mm3 (0.00-0.10); IMMATURE GRAN PERCENT AUTO 0 % (0-1); LYMPHOCYTES ABSOLUTE AUTO 1.02 K/mm3 (0.84-5.20); LYMPHOCYTES PERCENT AUTO 7 % (21-46); MONOCYTES ABSOLUTE AUTO 0.71 K/mm3 (0.16-1.47); MONOCYTES PERCENT AUTO 5 % (4-13); Mean Corpuscular HGB 28.2 pg (26.0-34.0); Mean Corpuscular HGB Conc 33.4 g/dL (31.5-36.5); Mean Corpuscular Volume 84 fL (80-100); Mean Platelet Volume 9.1 fL (9.1-12.4); NEUTROPHILS ABSOLUTE AUTO 13.12 K/mm3 (1.96-9.15); NEUTROPHILS PERCENT AUTO 87 % (41-73); Platelet Count 546 K/mm3 (150-400); RDW Coefficient Variation 15.3 % (11.7-14.2); Red Blood Cell Count 4.65 M/mm3 (4.30-5.90); White Blood Cell Count 15.02 K/mm3 (4.00-11.30)
[2019-01-24 10:04] LABS: Alanine Aminotransfer (ALT/SGP 19 U/L (12-78); Albumin, Blood 3.5 g/dL (3.4-5.0); Albumin/Globulin Ratio 0.9 (0.8-1.8); Alk Phos 125 U/L (50-136); Anion Gap 10 mmol/L (6-16); Aspartate Aminotrans (AST/SGOT 17 U/L (12-37); Bilirubin, Total 0.5 mg/dL (0.1-1.0); Blood Urea Nitrogen 21 mg/dL (8-24); Bun/Creatinine Ratio 30.8 (12.0-20.0); CO2, Blood 25 mmol/L (21-32); Calcium, Blood 9.5 mg/dL (8.5-10.1); Chloride, Blood 104 mmol/L (98-108); Creatinine, Blood 0.68 mg/dL (0.60-1.20); Globulin, Blood 4.1 g/dL (2.2-4.0); Glomerular Filtration Rate >60 (60-); Glucose, Blood 117 mg/dL (70-99); Potassium, Blood 3.8 mmol/L (3.5-5.5); Sodium, Blood 139 mmol/L (136-145); Total Protein, Blood 7.6 g/dL (6.4-8.2)
[2019-01-24] MEDS ORDERED: TRAZ100 PO (10:06)
[2019-01-24] MEDS ORDERED: BISA10S PR (10:07)
[2019-01-24] MEDS ORDERED: EXCEDRIN PO (10:09)
[2019-01-24] MEDS ORDERED: Anti-Diarrheal2 MG PO (10:09)
[2019-01-24] MEDS ORDERED: MYLANTA (10:10)
[2019-01-24 10:15] LABS: Source, Urine Catheter
[2019-01-24 10:20] LABS: Appearance, Urine Clear (Clear); Bilirubin, Urine Neg (Neg); Blood, Urine 4+ (Neg); Color, Urine Yellow (P-Yellow); Glucose Qualitative, Urine Neg (Neg); Ketones, Urine Neg (Neg); Leukocyte Esterase, Urine 1+ (Neg); Nitrite, Urine Neg (Neg); Protein, Urine 2+ (Neg); Urobilinogen, Urine NORM (Normal)
[2019-01-24 10:21] LABS: Free Thyroxine 1.31 ng/dL (0.70-1.60)
[2019-01-24 10:23] LABS: Thyroid Stimulating Hormone 0.561 uIU/mL (0.360-4.800)
[2019-01-24] MEDS ORDERED: ACET325 PO (10:29)
[2019-01-24 10:31] LABS: Bacteria Few /hpf; Calcium Oxalate Crystals Rare /hpf; Granular Casts 0-2 /lpf (0); Hyaline Casts 0-2 /lpf (0-2); Squamous Epithelial Cells Rare /hpf (Few)
--- NOTE | 2019-01-24 13:42 | NUR ---
CONTINUES TO REPETITVELY STATE "PLEASE" DOES NOT ANSWER QUESTIONS. TOOK PO MEDS WITH WATER TOLERATED WELL. ORIENTED TO ROOM. CALL LIGHT WITHIN REACH. BED LOW AND IN LOCKED POSITION.
--- NOTE | 2019-01-24 17:20 | NUR ---
FLUID BOLUS RUNNING @999ML/HR
--- NOTE | 2019-01-24 17:43 | NUR ---
SHIFT SUMMARY QUAD. ALERT. SUPRAPUBIC CATHETER. DENIES PAIN. CARE GIVEN LEYLA VERIFIED MED REC. INCOMPLETE QUADRIPLEGIA (GROSS MOVEMENT TO UPPER EXT). LACTIC ACID >4. 3L FLUID BOLUS GIVEN SINCE ARRIVAL IN E.D. RECENT ADMIT FOR SAME. CAREGIVERS REPORTS FREQUENT STOOLS. INCONTINENT. LIFT TO CHAIR. APPEARS ANXIOUS.
[2019-01-25 04:57] LABS: BASOPHILS ABSOLUTE AUTO 0.02 K/mm3 (0.00-0.23); BASOPHILS PERCENT AUTO 0 % (0-2); EOSINOPHILS PERCENT AUTO 0 % (0-6); Hemoglobin 10.9 g/dL (13.5-17.5); IMMATURE GRAN ABSOLUTE AUTO 0.04 K/mm3 (0.00-0.10); IMMATURE GRAN PERCENT AUTO 0 % (0-1); LYMPHOCYTES PERCENT AUTO 15 % (21-46); MONOCYTES ABSOLUTE AUTO 0.52 K/mm3 (0.16-1.47); MONOCYTES PERCENT AUTO 5 % (4-13); Mean Corpuscular HGB 28.2 pg (26.0-34.0); Mean Corpuscular Volume 86 fL (80-100); NEUTROPHILS ABSOLUTE AUTO 8.98 K/mm3 (1.96-9.15); NEUTROPHILS PERCENT AUTO 80 % (41-73); Platelet Count 456 K/mm3 (150-400); RDW Coefficient Variation 15.5 % (11.7-14.2); RDW Standard Deviation 48.1 fL (35.1-46.3); Red Blood Cell Count 3.86 M/mm3 (4.30-5.90); White Blood Cell Count 11.26 K/mm3 (4.00-11.30)
[2019-01-25 06:18] LABS: Alanine Aminotransfer (ALT/SGP 15 U/L (12-78); Albumin, Blood 2.9 g/dL (3.4-5.0); Albumin/Globulin Ratio 0.8 (0.8-1.8); Alk Phos 96 U/L (50-136); Anion Gap 5 mmol/L (6-16); Aspartate Aminotrans (AST/SGOT 13 U/L (12-37); Bilirubin, Total 0.6 mg/dL (0.1-1.0); Blood Urea Nitrogen 18 mg/dL (8-24); Bun/Creatinine Ratio 35.4 (12.0-20.0); CO2, Blood 26 mmol/L (21-32); Calcium, Blood 8.6 mg/dL (8.5-10.1); Chloride, Blood 111 mmol/L (98-108); Creatinine, Blood 0.51 mg/dL (0.60-1.20); Globulin, Blood 3.6 g/dL (2.2-4.0); Glomerular Filtration Rate >60 (60-); Glucose, Blood 103 mg/dL (70-99); Magnesium, Blood 1.9 mg/dL (1.6-2.4); Potassium, Blood 3.3 mmol/L (3.5-5.5); Sodium, Blood 142 mmol/L (136-145); Total Protein, Blood 6.5 g/dL (6.4-8.2)
--- NOTE | 2019-01-25 07:21 | NUR ---
SHIFT SUMMARY PT IS A 58 Y/O MALE, ADMITTED FOR SEPSIS. HE IS AN INCOMPLETE QUADRAPLEGIC, WITH SOME GROSS MOVEMENT OF THE ARMS AND NO MOVEMENT OF THE LEGS. SUPRAPUBIC CATHETER IN PLACE, PATENT AND DRAINING. PT DENIED ANY COMPLAINTS OF PAIN, NAUSEA OR SOB, AND SLEPT WELL THROUGH THE NIGHT. VITAL SIGNS STABLE. PT ON CONTINUOUS NS @ 100 ML/HR THROUGH THE NIGHT. NO ACUTE CHANGES IN PT CONDITION NOTED. REPORT GIVEN TO ONCOMING RN.
--- NOTE | 2019-01-25 12:41 | NUR ---
PT DECLINED LUNCH.
--- NOTE | 2019-01-25 17:17 | NUR ---
Per juan m, I met with Mr. Jensen to offer prayer and encouragement. He was very tired and could not stay awake for conversation, He nodded 'yes' to prayer, but fell into a deep sleep during it. [facility] services will remain available.
--- NOTE | 2019-01-25 18:08 | NUR ---
SHIFT SUMMARY PATIENT DENIES PAIN, NAUSEA, AND SHORTNESS OF BREATH. PATIENT NAPPING MOST OF SHIFT. PATIENT DECLINED MEALS TODAY. REPOSITIONED Q2. PATIENT ANSWERING QUESTIONS APPROPRIATELY TODAY, REPORTS HE FEELS BETTER THAN YESTERDAY.
[2019-01-25 23:39] LABS: Vancomycin, Trough 14.7 ug/mL (5.0-10.0)
--- NOTE | 2019-01-26 07:13 | NUR ---
SHIFT SUMMARY PT IS A 58 Y/O MALE, ADMITTED FOR SEPSIS. HE IS A&O X 3, ABLE TO ANSWER QUESTIONS APPROPRIATELY. NO COMPLAINTS OF ACUTE PAIN, NAUSEA OR SOB. VITALS STABLE. PT'S SUPRAPUBIC KELLER HAD VERY LOW OUTPUT THROUGH THE NIGHT, 250 MLS TOTAL. PT RECEIVED NS THROUGH THE NIGHT AT 100 ML/HR. PT SLEPT WELL THROUGH THE NIGHT. NO OTHER ACUTE CHANGES IN PT CONDITION NOTED. REPORT GIVEN TO ONCOMING RN.
[2019-01-26] MEDS ORDERED: LINE600 PO (15:57)
[2019-01-26] MEDS ORDERED: CEPH500 PO (15:58)
[2019-01-26] MEDS ORDERED: HYDCOR10 PO (15:58)
== END 2019-01-26 16:30 | disposition home or self-care (01) | DRG 698 ==
LOC: ER 09:00 → MEDS 11:28 → ENPENDDIS 01-26 14:52 → MEDS 01-26 16:30
PROVIDERS: Emergency Medicine; ADMIT Internal Medicine
DX: T83.511A Infection and inflammatory reaction due to indwelling urethral catheter, initial encounter (principal); A41.9 Sepsis, unspecified organism; G82.51 Quadriplegia, C1-C4 complete; E27.40 Unspecified adrenocortical insufficiency; E87.2 Acidosis; N39.0 Urinary tract infection, site not specified; G90.4 Autonomic dysreflexia; N21.0 Calculus in bladder; I95.9 Hypotension, unspecified; E03.9 Hypothyroidism, unspecified; Z87.440 Personal history of urinary (tract) infections; Z86.14 Personal history of Methicillin resistant Staphylococcus aureus infection; Z87.891 Personal history of nicotine dependence; Z88.2 Allergy status to sulfonamides; Z88.8 Allergy status to other drugs, medicaments and biological substances; Z79.899 Other long term (current) drug therapy
CPT/HCPCS: 36415; 71045; 80053; 80202; 81001; 83605; 83735; 84439; 84443; 85025; 87040; 87086; 92610; 93005; 93010; 96361; 96365; 96368; 96375; 99285-25; J0696; J1650; J1720; J3370; J7030

== ENCOUNTER 2019-02-12 21:32 | Inpatient (IN) | payer MEDICARE, OTHER ==
[~2019-02-12] VITALS: Ht 182.9 cm; Wt 72.9 kg
[~2019-02-12 21:32] MED LIST changes: +EXCEDRIN PO; +HYDCOR10 PO; +LINE600 PO; +MYLANTA
[2019-02-12 22:25] LABS: Calcium, Ionized (POC) 1.23 mmol/L (1.10-1.46); Chloride (POC) 100 mmol/L (98-108); Creatinine (POC) 0.8 mg/dL (0.8-1.3); Glucose (ISTAT POC) 123 mg/dL (70-99); Hemoglobin (POC) 11.6 g/dL (13.5-17.5); Potassium (POC) 4.2 mmol/L (3.5-5.5); Sodium (POC) 136 mmol/L (135-148); Total CO2 (POC) 26 mmol/L (21-32)
[2019-02-12 22:39] LABS: BASOPHILS ABSOLUTE AUTO 0.06 K/mm3 (0.00-0.23); BASOPHILS PERCENT AUTO 1 % (0-2); EOSINOPHILS ABSOLUTE AUTO 0.18 K/mm3 (0.00-0.68); EOSINOPHILS PERCENT AUTO 2 % (0-6); Hematocrit 35.7 % (37.0-53.0); Hemoglobin 11.6 g/dL (13.5-17.5); IMMATURE GRAN ABSOLUTE AUTO 0.02 K/mm3 (0.00-0.10); IMMATURE GRAN PERCENT AUTO 0 % (0-1); LYMPHOCYTES ABSOLUTE AUTO 1.78 K/mm3 (0.84-5.20); LYMPHOCYTES PERCENT AUTO 24 % (21-46); MONOCYTES ABSOLUTE AUTO 0.54 K/mm3 (0.16-1.47); MONOCYTES PERCENT AUTO 7 % (4-13); Mean Corpuscular HGB Conc 32.5 g/dL (31.5-36.5); Mean Corpuscular Volume 86 fL (80-100); Mean Platelet Volume 9.2 fL (9.1-12.4); NEUTROPHILS ABSOLUTE AUTO 4.99 K/mm3 (1.96-9.15); NEUTROPHILS PERCENT AUTO 66 % (41-73); Platelet Count 340 K/mm3 (150-400); RDW Coefficient Variation 16.1 % (11.7-14.2); RDW Standard Deviation 49.9 fL (35.1-46.3); Red Blood Cell Count 4.15 M/mm3 (4.30-5.90); White Blood Cell Count 7.57 K/mm3 (4.00-11.30)
[2019-02-12 22:56] LABS: Alanine Aminotransfer (ALT/SGP 18 U/L (12-78); Albumin, Blood 3.3 g/dL (3.4-5.0); Albumin/Globulin Ratio 0.9 (0.8-1.8); Alk Phos 102 U/L (50-136); Anion Gap 5 mmol/L (6-16); Aspartate Aminotrans (AST/SGOT 13 U/L (12-37); Bilirubin, Total 0.3 mg/dL (0.1-1.0); Blood Urea Nitrogen 14 mg/dL (8-24); Bun/Creatinine Ratio 18.6 (12.0-20.0); CO2, Blood 27 mmol/L (21-32); Chloride, Blood 106 mmol/L (98-108); Creatinine, Blood 0.75 mg/dL (0.60-1.20); Globulin, Blood 3.7 g/dL (2.2-4.0); Glomerular Filtration Rate >60 (60-); Glucose, Blood 122 mg/dL (70-99); Potassium, Blood 4.2 mmol/L (3.5-5.5); Sodium, Blood 138 mmol/L (136-145)
[2019-02-12 23:00] LABS: Troponin I <0.015 ng/mL (0.000-0.040)
[2019-02-12 23:26] LABS: Source, Urine Catheter
[2019-02-12 23:28] LABS: Appearance, Urine Cloudy (Clear); Bilirubin, Urine Neg (Neg); Blood, Urine 5+ (Neg); Color, Urine Yellow (P-Yellow); Glucose Qualitative, Urine Neg (Neg); Ketones, Urine Neg (Neg); Leukocyte Esterase, Urine 3+ (Neg); Nitrite, Urine Neg (Neg); Protein, Urine 2+ (Neg); Urobilinogen, Urine NORM (Normal)
[2019-02-12 23:33] LABS: Bacteria Many /hpf; Mucus Light (0-Heavy); Squamous Epithelial Cells Few /hpf (Few); White Blood Cells, Urine TNTC /hpf (0-5)
[2019-02-13 06:31] LABS: U Amphetamine Screen Not Detected; U Barbituate Screen Not Detected; U Benzodiazapine Screen Not Detected; U Methamphetamine Screen Not Detected
--- NOTE | 2019-02-13 06:31 | NUR ---
END SHIFT SUMMARY ASSUMED CARE OF PT AT 0500. PT IS A/O, PT IS A QUADRIPLEGIC DUE TO FALL IN 2017, PT HAS DULL FEELING IN HIS EXTREMITIES. PT STATES THAT THEY HAVE TIMES OF DEPRESSION AND ANXIETY AT TIMES. N S/SX OF SEIZURE ACTIVITY AT THIS TIME. HEART SOUNDS REGULAR, LUNG SOUNDS CLEAR. PT LEGS AND ARMS ARE CONTRACTED, GROSS MOTOR MOVEMENT IN HIS ARMS. PT HAS A SUPRABUBIC CATHETER WHICH IS LEAKING, URINE CLOUDY AND YELLOW, PT HAS CHRONIC UTI'S. PT HAS WOUND ON THE TOP OF HIS L FOOT, PICTURES TAKEN AND DOCUMENTED, PT STATES THAT IT IS FROM HIS COMPRESSION STOCKINGS. PT IS CURRENTLY SLEEPING, CALL LIGHT IN REACH, BED IN LOWEST POSTION, WILL CONTINUE TO MONITOR UNTIL DAYSHIFT NURSE ARRIVES.
[2019-02-13 06:32] LABS: U Buprenorphine Screen Not Detected; U Cannabinoids Screen DETECTED; U Cocaine Screen Not Detected; U Methadone Screen Not Detected; U Opiates Screen Not Detected; U Oxycodone Screen DETECTED; U Phencyclidine Screen Not Detected; U Propoxyphene Screen Not Detected
[2019-02-13] MEDS ORDERED: TRAZ100 PO (09:24)
[2019-02-13] MEDS ORDERED: ASPI81CH PO (13:40)
[2019-02-13] MEDS ORDERED: DULO30 PO (13:40)
[2019-02-13] MEDS ORDERED: BACL10 PO (13:41)
[2019-02-13] MEDS ORDERED: ATOR40TA PO (13:45)
[2019-02-13] MEDS ORDERED: Pedi-Dri 100,0060 GM TOP (13:51)
[2019-02-13] MEDS ORDERED: COMPLETE ALLERG PO (13:54)
[2019-02-13] MEDS ORDERED: CRANBERRY500 MG PO (13:55)
[2019-02-13] MEDS ORDERED: HYDCOR10 PO (13:56)
[2019-02-13] MEDS ORDERED: ENEMEEZ PLUS MIN5 ML PR (14:08)
--- NOTE | 2019-02-13 14:09 | NUR ---
SPOKE WITH HIS HAND ADULT CARE AND RECEIVED ORAL CONFIRMATION [facility]F UPDATED MED LIST.
--- NOTE | 2019-02-13 17:58 | NUR ---
SHIFT SUMMARY PT AXO TO SELF AND PLACE THOUGH HAS BEEN SLEEPING THROUGHOUT THE DAY. HTN AT 0743 NOTED, DR MATTHEWS AWARE. HYPOTENTION NOTED AT 0917 ALSO NOTED, MEDICATED PER EMAR. PT HAD EEG AND MRI TODAY, AWAITING RESULTS. PT STATED TO KNOT BUMPER AT DINNER THAT HE "DOESN'T FEEL RIGHT." KNOT BUMPER ALSO STATES THAT PT "DRIFTS OFF" BETWEEN BITES AND THE WAKES AND QUESTIONS HOW LONG HE WAS "OUT FOR." THIS NURSE IN TO ASSESS. SAME BEHAVIOR NOTED. PT STARTLED AWAKE WHEN NURSE SPOKE HIS NAME. PT STATES HE IS WORRIED ABOUT HOW MUCH HE IS SLEEPING. DR MATTHEWS CALLED AT THIS TIME AND ABG ORDERED. BED IN LOW POSITION, SOFT TOUCH CALL LIGHT WITHIN REACH.
[2019-02-13 19:22] LABS: PCO2 Arterial 47.3 mmHg (35-45); PO2 Arterial 91.5 mmHg (80-100); pH Blood Arterial 7.37 (7.35-7.45)
--- NOTE | 2019-02-13 22:14 | NUR ---
PT REMAINS VERY SLEEPY THIS EVENING. STARTLES WHEN WOKEN. ALERT AND ORIENTED WHEN AWAKE BUT VERY QUICKLY FALLS BACK ASLEEP IN MID CONVERSATION. BLOOD PRESSURE INTERMITTENTLY ON THE HYPOTENSIVE SIDE. HEART RATE PER FAMILY AND CONSUMER SCIENCES PROFESSOR "VERY REGULARLY IRREGULAR". RANGES FREQUENTLY IN BETWEEN THE HIGH 40'S AND THE 90'S. PT VERY CONCERNED ABOUT HOW SLEEPY HE IS. NO EEG RESULTS YET TO VIEW. PER RT ABG CAME BACK NORMAL. FREQUENT VITALS AND CHECKS ON PT. WILL CONTINUE TO MONITOR.
--- NOTE | 2019-02-13 22:37 | NUR ---
CALLED TELEMETRY TO CHECK ON PT. ELECTRONIC [employer]ER[employer] SPECIALIST LUDWIG FULLER STATES THAT LENGTH BETWEEN LOW AND HIGH HEART RATES SHORTENING. RANGING NOW FROM LOW 50'S TO 80'S.
--- NOTE | 2019-02-14 01:24 | NUR ---
PT MUCH MORE ALERT AT THIS TIME COMPARED TO AT START OF SHIFT. AWAKE LYING IN THE BED. BLOOD PRESSURE IMPROVED WELL. PT'S EX AND DAUGHTER EVEN HAD VISITED AT START OF SHIFT AND PT DID NOT REMEMBER. WILL CONTINUE TO MONITOR.
--- NOTE | 2019-02-14 03:57 | NUR ---
SHIFT SUMMARY FIRST HALF OF SHIFT PT VERY DROWSY. ABLE TO BE WOKEN BY STAFF BUT QUICKLY FALLS BACK ASLEEP IN MID CONVERSATION. ALERTNESS IMPROVING THROUGHOUT THE NIGHT. PT A/O WHEN AWAKE. QUADRIPLEGIC, WITH ONLY GROSS MOTOR MOVEMENT TO BUE'S. NO MOVEMENT AND VERY LITTLE SENSATION TO BLE'S. WOUND TO RFOOT OPEN TO AIR. SUPRAPUBIC CATHETER DRAINING CLOUDY YELLOW URINE, HOWEVER PT ALSO HAVING URETHRAL LEAKING. ATTENDS IN PLACE. PT ON RA. EX AND DAUGHTER IN TO VISIT AT START OF SHIFT. UPDATED ON PT SITUATION. BLOOD PRESSURE INTERMITTENTLY HYPOTENSIVE AND HEART RATE VARIES. NO OTHER ACUTE CHANGES THIS SHIFT. WILL CONTINUE TO MONITOR.
[2019-02-14 05:34] LABS: Vancomycin, Trough 20.7 ug/mL (5.0-10.0)
--- NOTE | 2019-02-14 18:21 | NUR ---
DECREASED URINE OUTPUT VIA SUPRAPUBIC CATHETER <100ML THIS SHIFT. ATTENDS SATURATED THIS A.M. URETHRAL LEAKING THROUGHOUT DAY. ALL ABOVE REPORTED TO DR. MATTHEWS. NO NEW ORDERS RECEIVED. DR. MATTHEWS TO CALL IR OR [facility] IN A.M. TO REPLACE SUPRAPUBIC CATHETER.
--- NOTE | 2019-02-14 18:39 | NUR ---
SHIFT SUMMARY [facility]. VERY PLEASANT, TALKING WITH STAFF. URETHRA LEAKING. POSSIBLE NEED TO REPLACE SUPRAPUBIC CATHETER IN A.M. DR. MATTHEWS AWARE. SUPPOSITORY GIVEN LIFT TO BSC COMMODE; NO BM TODAY. MEDICATED FOR RIGHT SHOULDER PAIN X2; AWAITING EEG RESULTS; FEEDER. GROSS MOVEMENT TO LEFT HAND, RIGHT HAND UNABLE. PT REPORTS CONCERNS ABOUT DECLINING MENTAL FUNCTION BUT TODAY MENTATION SEEMS MUCH IMPROVED.
--- NOTE | 2019-02-15 04:29 | NUR ---
Shift Summary Patient slept intermittently overnight. Assisted to reposition q2h. Patient had a bladder spasm episode, but his bladder scan read only 87. No syncopy or seizure activity noted. He has been hypotensive overnight, however, BP has been stable and he is asymptomatic.
--- NOTE | 2019-02-15 04:41 | NUR ---
Shift Summary Patient slept well overnight. He states his legs remain tender from the cattle gate injury. Doppler of legs was completed but unable to see results. This was discussed with special agent in charge and will continue to try to obtain results. Patient is anticoagulated. Holding SCDs in case of existing DVT. No cp or SOB reported.
--- NOTE | 2019-02-15 15:04 | NUR ---
ASSUMED CARE OF PATIENT FROM TOM RN @ 1300. NO ACUTE CHANGE FROM PREVIOUS RN REPORT. ORDER RECIEVED TO HAVE SP CATH CHANGED TODAY. NOTIFIED [facility] RNS WHO WILL CHANGE TODAY. PATIENT REQUESTING TO BE LEFT ALONE FOR NOW. HE DENIES NEEDS. HE ASKS JUST TO SLEEP. PATIENT DENIES ANY SI. FAMILY HAS BEEN IN TO VISIT.
--- NOTE | 2019-02-15 18:48 | NUR ---
SHIFT SUMMARY PATIENT DEPRESSED MOST OF THE DAY AND REQUESTING TO BE ALONE. HE SEEMS TO BE IN BETTER SPIRITS THIS EVENING. PLAN TO PLACE POWERGLIDE THIS EVENING FOR DC TOMORROW TO SNF. SUPRACATH BEING CHANGED AT THIS TIME BY [facility] HERSON BUSTILLOS.
--- NOTE | 2019-02-15 19:10 | NUR ---
ASKED BY ABEBA Mcgovern RN TO COME TO FLOOR TO CHANGE OUT SUPRAPUBIC CATHETER. PT TOLERATED WELL. NEW BAG WAS ATTACHED TO NEW CATHETER. SECURED TO R LEG WITH STAT LOCK. DRAINING C/Y URINE.
--- NOTE | 2019-02-16 04:40 | NUR ---
Shift Assessment Patient slept well between cares. He requested a fan for his bedside table, and this seemed to ease his anxiety and amake him more comfortable. Assisted to reposition q2h. He did request that his pain medications be changed to Q4 hours PRN for pain, which he states is his home regimen, so a call was placed to Evelyn Felix NP and order was received for this change.
--- NOTE | 2019-02-16 18:29 | NUR ---
PT DID NOT DISCHARGE TO [facility] TODAY D/T INSURANCE ISSUES, POSSIBLE D/C TUESDAY OR TUESDAY. NO ACUTE CHANGES NOTED THIS SHIFT, WILL CONTINUE TO MONITOR AND REPORT TO ONCOMING RN
--- NOTE | 2019-02-17 04:27 | NUR ---
Shift Summary Patient slept well overnight. Pain was well managed with PO pain medicaiton. Assisted to reposition q2h.
--- NOTE | 2019-02-17 13:46 | NUR ---
Pt visit this afternoon. Pt is known to this freelance copywriter from previous hospital stay. Pt reports tolerable 3/10 pain in his shoulder and reports mild but managable SOB. Engaged in therapeutic conversation listening to Pt express frustration regarding his condition and the care he receives at the facility his lives. Pt reports living in a few facilities in the past and has not felt care was adequate at any of the places. Pt expresses frustrations regarding his recurring UTI's. Suggested to have conversation with his urologist regarding his concerns and to inquire the possibility of becoming colonized. Suggested for Pt to use his computer at home to research facilities to live that may interest him. Pt expresses appreciation of listening as he vents and reports no other concerns. Pt is agreeable with plan to discharge to SNF tomorrow. Spoke with bedside HERSON Hunter and discussed case. Elsa reports no concerns at this time. Palliative Care will remain available.
--- NOTE | 2019-02-17 18:18 | NUR ---
shift summary patient is pleasant alert and oriented. he is very concerned about his bowel movements and requests he be given a suppository tonight. he has been given digital stimulation. he still has not had a bowel movement. he states that suppositories usually give him diarrhea and without warning, but he at this point would rather have a bowel movement than have warning.
--- NOTE | 2019-02-18 04:11 | NUR ---
SHIFT SUMMARY PT CONTINUES TO HAVE A HARSH HACKING COUGH AT TIMES THAT IS SHORT LASTING. PT HAS SLEPT T/O MOST OF SHIFT. PT ONLY COMPLAINT IS DISCOMFORT IN SACRAL AREA THAT RESPONDS WELL TO TYLENOL AND REPOSITIONING. PT CURRENTLY RESTING AND BREATHING EASY. CALL LIGHT AND BED CONTROLS ARE WITH IN PT'S REACH.
--- NOTE | 2019-02-18 04:28 | NUR ---
SHIFT SUMMARY PT HAD SOME COMPLAINTS OF ITCHINESS. PT HOME DOSE OF BENEDRYL WAS ORDERED AND GIVEN. PT HAD RELIEF WITH BENEDRYL. PT STATED HE WANTED TO WAIT TIL AM FOR DULCOLAX SUPPOSITORY. PT STATES HE WOULD PRFER TO USE HIS HOME MED OF ENEMEEZ, DOCUSATE/ BENZOCAINE IN 5 ML. PHARMACY CALLED AND THEY INFORMED THAT THEY DO NOT CARRY THIS TYPE MED. PT AGREED TO STILL TRY SUPPOSITORY. PT MEDICATED FOR PAIN PER EMAR WITH RELIEF. PT SLEPT WELL T/O SHIFT. PT CURRENTLY SLEEPING WITH CALL LIGHT IN REACH.
--- NOTE | 2019-02-18 09:41 | NUR ---
SPOKE WITH [place] COORDNATOR WHO OK'D DISCHARGE TO [facility] TODAY. WILL FAX ORDERS AND SCHEDULE GURNEY TRANSPORT. DR MATTHEWS NOTIFIED AND WILL PLACE ORDERS.
[2019-02-18] MEDS ORDERED: Tazicef2 GM IV (10:34)
--- NOTE | 2019-02-18 11:16 | NUR ---
[facility] TRANSPORT SCHEDULED FOR 1200. ORDERS FAXED TO [facility].
--- NOTE | 2019-02-18 11:54 | NUR ---
Discharge Summary A/Ox4, pleasant and cooperative with care. Medicated for shoulder pain x 1. Patient discharging to [facility]. Ex- (Tarah) notified. L/M on Rodolfo's (daughter) phone and previous foster home ([facility]) regarding discharge. IV removed, WNL. Patient transported via [employer], on RA, with suprapubic cath in place patent & draining, and belongings. Discharge paperwork also sent with patient. Report given to receiving nurse Carolyn.
== END 2019-02-18 12:35 | DRG 100 ==
LOC: ER 21:32 → MEDS 21:34 → ER 02-13 04:39 → MEDS 02-13 04:46 → ENPENDDIS 02-18 10:33 → MEDS 02-18 12:35
PROVIDERS: Emergency Medicine; Hospitalist; ADMIT Family Medicine
DX: R56.9 Unspecified convulsions (principal); G82.51 Quadriplegia, C1-C4 complete; T83.511A Infection and inflammatory reaction due to indwelling urethral catheter, initial encounter; N39.0 Urinary tract infection, site not specified; I95.9 Hypotension, unspecified; G90.4 Autonomic dysreflexia; F32.9 Major depressive disorder, single episode, unspecified
CPT/HCPCS: 36415; 36600; 70450; 70551; 71045; 80047; 80053; 80202; 81001; 82533; 82803; 83605; 84484; 85014; 85025; 87040; 87077; 87086; 87186; 93005; 93010; 95819; 96365; 96375; 99285-25; A9270; C1751; G0378; J0696; J0713; J1650; J3370; J7050

== ENCOUNTER 2019-03-23 17:51 | Emergency (ER) | payer MEDICARE, OTHER ==
[~2019-03-23] VITALS: Ht 182.9 cm; Wt 72.6 kg
[~2019-03-23 17:51] MED LIST changes: +COMPLETE ALLERG PO; +CRANBERRY500 MG PO; +Tazicef2 GM IV
== END 2019-03-23 23:12 | disposition home or self-care (01) ==
LOC: ER 17:51
DX: T83.091A Other mechanical complication of indwelling urethral catheter, initial encounter (principal); Z88.2 Allergy status to sulfonamides; Z88.1 Allergy status to other antibiotic agents; Z88.8 Allergy status to other drugs, medicaments and biological substances; Z79.899 Other long term (current) drug therapy; Z79.82 Long term (current) use of aspirin
CPT/HCPCS: 51702; 99283-25

== ENCOUNTER 2019-04-19 15:38 | Emergency (ER) | payer MEDICARE, OTHER ==
[~2019-04-19] VITALS: Ht 182.9 cm; Wt 77.1 kg
[2019-04-19 16:52] LABS: Source, Urine Clean Catch
[2019-04-19 16:58] LABS: Bilirubin, Urine Neg (Neg); Blood, Urine 5+ (Neg); Glucose Qualitative, Urine Neg (Neg); Ketones, Urine 1+ (Neg); Leukocyte Esterase, Urine 3+ (Neg); Nitrite, Urine Pos (Neg); Protein, Urine 3+ (Neg); Urobilinogen, Urine NORM (Normal)
[2019-04-19 17:06] LABS: Appearance, Urine Cloudy (Clear); Color, Urine Red (P-Yellow)
[2019-04-19 17:07] LABS: Red Blood Cells, Urine TNTC /hpf (0-2); White Blood Cells, Urine TNTC /hpf (0-5)
[2019-04-19 17:08] LABS: Bacteria Many /hpf; Squamous Epithelial Cells Rare /hpf (Few)
[2019-04-19] MEDS ORDERED: Cefpodoxime Pr100 MG PO (17:14)
== END 2019-04-19 19:56 | disposition home or self-care (01) ==
LOC: ER 15:38
PROVIDERS: Physician Assistant
DX: T83.511A Infection and inflammatory reaction due to indwelling urethral catheter, initial encounter (principal); N39.0 Urinary tract infection, site not specified; R31.0 Gross hematuria; Z87.891 Personal history of nicotine dependence
CPT/HCPCS: 51705; 51798; 81001; 87086; 99283-25; A9270-GY; C2627

== ENCOUNTER 2019-06-14 18:14 | Emergency (ER) | payer MEDICARE, OTHER ==
[~2019-06-14] VITALS: Ht 185.4 cm; Wt 75.8 kg
[~2019-06-14 18:14] MED LIST changes: +Cefpodoxime Pr100 MG PO
[2019-06-14 18:41] LABS: Source, Urine Catheter
[2019-06-14 18:44] LABS: Bilirubin, Urine Neg (Neg); Blood, Urine 5+ (Neg); Glucose Qualitative, Urine Neg (Neg); Ketones, Urine 1+ (Neg); Leukocyte Esterase, Urine 3+ (Neg); Nitrite, Urine Pos (Neg); Protein, Urine 3+ (Neg); Urobilinogen, Urine NORM (Normal)
[2019-06-14 19:04] LABS: Appearance, Urine Cloudy (Clear); Color, Urine Red (P-Yellow)
[2019-06-14 19:06] LABS: Bacteria Many /hpf; Mucus Mod (0-Heavy); Red Blood Cells, Urine TNTC /hpf (0-2); Squamous Epithelial Cells Not Seen /hpf (Few); White Blood Cells, Urine 50-100 /hpf (0-5)
[2019-06-14] MEDS ORDERED: CEFP200 PO (19:13)
== END 2019-06-14 20:48 | disposition home or self-care (01) ==
LOC: ER 18:14
PROVIDERS: Emergency Medicine
DX: T83.090A Other mechanical complication of cystostomy catheter, initial encounter (principal); N39.0 Urinary tract infection, site not specified; E03.9 Hypothyroidism, unspecified; Z87.891 Personal history of nicotine dependence; Z79.899 Other long term (current) drug therapy; Z79.82 Long term (current) use of aspirin
CPT/HCPCS: 51102; 51705; 81001; 87086; 99283; A9270-GY; C2627

== ENCOUNTER 2019-08-06 03:32 | Inpatient (IN) | payer MEDICARE, OTHER ==
[~2019-08-06] VITALS: Ht 188 cm; Wt 77.7 kg
[2019-08-06] MEDS ORDERED: Keflex500 MG PO (03:41)
[2019-08-06 06:18] LABS: BASOPHILS ABSOLUTE AUTO 0.12 K/mm3 (0.00-0.23); BASOPHILS PERCENT AUTO 1 % (0-2); EOSINOPHILS ABSOLUTE AUTO 0.21 K/mm3 (0.00-0.68); EOSINOPHILS PERCENT AUTO 2 % (0-6); Hematocrit 42.4 % (37.0-53.0); Hemoglobin 13.7 g/dL (13.5-17.5); IMMATURE GRAN ABSOLUTE AUTO 0.07 K/mm3 (0.00-0.10); IMMATURE GRAN PERCENT AUTO 1 % (0-1); LYMPHOCYTES ABSOLUTE AUTO 2.74 K/mm3 (0.84-5.20); LYMPHOCYTES PERCENT AUTO 20 % (21-46); MONOCYTES ABSOLUTE AUTO 1.29 K/mm3 (0.16-1.47); MONOCYTES PERCENT AUTO 9 % (4-13); Mean Corpuscular HGB Conc 32.3 g/dL (31.5-36.5); Mean Corpuscular Volume 87 fL (80-100); Mean Platelet Volume 8.4 fL (9.1-12.4); NEUTROPHILS PERCENT AUTO 68 % (41-73); Platelet Count 444 K/mm3 (150-400); RDW Coefficient Variation 14.7 % (11.7-14.2); RDW Standard Deviation 46.9 fL (35.1-46.3); Red Blood Cell Count 4.89 M/mm3 (4.30-5.90); White Blood Cell Count 13.73 K/mm3 (4.00-11.30)
[2019-08-06 06:35] LABS: Alanine Aminotransfer (ALT/SGP 28 U/L (12-78); Albumin, Blood 3.8 g/dL (3.4-5.0); Albumin/Globulin Ratio 0.8 (0.8-1.8); Alk Phos 112 U/L (50-136); Anion Gap 10 mmol/L (6-16); Aspartate Aminotrans (AST/SGOT 30 U/L (12-37); Bilirubin, Total 0.3 mg/dL (0.1-1.0); Blood Urea Nitrogen 17 mg/dL (8-24); Bun/Creatinine Ratio 20.9 (12.0-20.0); CO2, Blood 26 mmol/L (21-32); Calcium, Blood 9.6 mg/dL (8.5-10.1); Chloride, Blood 108 mmol/L (98-108); Creatinine, Blood 0.82 mg/dL (0.60-1.20); Globulin, Blood 4.5 g/dL (2.2-4.0); Glomerular Filtration Rate >60 (60-); Glucose, Blood 115 mg/dL (70-99); Potassium, Blood 4.2 mmol/L (3.5-5.5); Sodium, Blood 144 mmol/L (136-145); Total Protein, Blood 8.3 g/dL (6.4-8.2)
[2019-08-06 07:37] LABS: Source, Urine Urostomy Bag
[2019-08-06 08:05] LABS: Appearance, Urine Hazy (Clear); Bilirubin, Urine Neg (Neg); Blood, Urine 4+ (Neg); Color, Urine Yellow (P-Yellow); Glucose Qualitative, Urine Neg (Neg); Ketones, Urine 2+ (Neg); Leukocyte Esterase, Urine 3+ (Neg); Nitrite, Urine Pos (Neg); Protein, Urine 3+ (Neg); Specific Gravity, Urine 1.015 (1.003-1.022); Urobilinogen, Urine NORM (Normal)
[2019-08-06 08:10] LABS: Bacteria Many /hpf; Mucus Heavy (0-Heavy); Red Blood Cells, Urine 50-100 /hpf (0-2); Squamous Epithelial Cells Few /hpf (Few); White Blood Cells, Urine 50-100 /hpf (0-5)
[2019-08-06 08:24] LABS: U Amphetamine Screen Not Detected; U Barbituate Screen Not Detected; U Benzodiazapine Screen Not Detected; U Buprenorphine Screen Not Detected; U Cannabinoids Screen DETECTED; U Cocaine Screen Not Detected; U Methadone Screen Not Detected; U Methamphetamine Screen Not Detected; U Opiates Screen Not Detected; U Oxycodone Screen DETECTED; U Phencyclidine Screen Not Detected; U Propoxyphene Screen Not Detected
[2019-08-06] MEDS ORDERED: Neurontin400 MG PO (11:41)
[2019-08-06] MEDS ORDERED: Cymbalta30 MG PO (11:41)
[2019-08-06] MEDS ORDERED: SYNTHROID50 MC1 PO (11:42)
--- NOTE | 2019-08-06 17:12 | NUR ---
PROVIDER NOTIFY ASSESMENT PERFORMED, PRESSURE ULCER ON RIGHT POSTERIOR ANKLE, DR. SIU NOTIFIED AND XRAY PLACED FOR 2VIEW ANKLE XRAY.
--- NOTE | 2019-08-06 20:04 | NUR ---
SHIFT SUMMARY PT A&O X1, PT RESPONDS TO NAME AND YES OR NO QUESTIONS UNABLE TO SPEAK IN FULL SENTENCE. PT HAS HX OF C1-C4 INJURY THAT RESULTED IN BECOMING IN QUADRAPELGIC PT IS ON RA, PT HAS NORAMAL SALINE INFUSING AT 75ML/HR IN LEFT A/C. PT HAS SUPER PUBIC CATH FOR NEUROGENIC BLADDER THAT WAS CHANGED IN THE ER THIS SHIFT. PT WAS MEDICATED X2 THIS SHIFT FOR PAIN. PT ATE WITH ASSISTANCE. PT HAS A PRESSURE ULCER ON RIGHT ANKLE METHALEX PLACED, METHALEC PLACED ON LEFT ANKLE AND COCCXY PREVENTATIVE. PT HAS SOFT TOUCH CALL LIGHT PLACED ON PILLOW, WILL REPORT TO NOC RN
--- NOTE | 2019-08-06 21:45 | NUR ---
CAREGIVER COMMUNICATION TALKED W/CAREGIVER LEYLA @2140. SHE ASKED WHAT PT WAS ADMITTED FOR, STATED SHE WAS NOTIFIED @0500 PT WAS BEING DISCHARGED. INFORMED CAREGIVER PT WAS ADMITTED FOR UTI. LEYLA STATED THIS IS 2ND TIME PTS HAD UTI IN PAST 6 MONTHS WHERE HE GETS CONFUSED, STATES THE CONFUSION USUALLY LAST 2WEEKS & NORMALLY PT IS "SHARP A TACK" AOX4. WHERE TONIGHT PT IS UNABLE TO ANSWER ORIENTATION QUESTIONS OR STATE HIS NEEDS EXCEPT "HELP" & "PLEASE". CAREGIVER STATES PT NORMALLY FLUSHES CATHETER BID W/40ML NS OTHERWISE HIS CATHETER GETS BLOCKED R/T SEDIMENT. NOTIFIED CAREGIVER CATHETER WAS CHANGED TODAY ON DAY SHIFT. CAREGIVER WILL LIKE TO BE NOTIFIED IN AM IF PLANS ARE TO DC PT, WILL INFORM ONCOMING NURSE & CONT TO MONITOR PT.
[2019-08-07 05:02] LABS: BASOPHILS ABSOLUTE AUTO 0.06 K/mm3 (0.00-0.23); BASOPHILS PERCENT AUTO 1 % (0-2); EOSINOPHILS ABSOLUTE AUTO 0.27 K/mm3 (0.00-0.68); EOSINOPHILS PERCENT AUTO 3 % (0-6); Hematocrit 31.1 % (37.0-53.0); Hemoglobin 10.1 g/dL (13.5-17.5); IMMATURE GRAN ABSOLUTE AUTO 0.04 K/mm3 (0.00-0.10); IMMATURE GRAN PERCENT AUTO 0 % (0-1); LYMPHOCYTES ABSOLUTE AUTO 2.57 K/mm3 (0.84-5.20); LYMPHOCYTES PERCENT AUTO 28 % (21-46); MONOCYTES ABSOLUTE AUTO 0.97 K/mm3 (0.16-1.47); MONOCYTES PERCENT AUTO 11 % (4-13); Mean Corpuscular HGB 27.8 pg (26.0-34.0); Mean Corpuscular HGB Conc 32.5 g/dL (31.5-36.5); Mean Corpuscular Volume 86 fL (80-100); Mean Platelet Volume 8.4 fL (9.1-12.4); NEUTROPHILS ABSOLUTE AUTO 5.33 K/mm3 (1.96-9.15); NEUTROPHILS PERCENT AUTO 58 % (41-73); Platelet Count 332 K/mm3 (150-400); RDW Coefficient Variation 15.1 % (11.7-14.2); RDW Standard Deviation 47.1 fL (35.1-46.3); Red Blood Cell Count 3.63 M/mm3 (4.30-5.90); White Blood Cell Count 9.24 K/mm3 (4.00-11.30)
[2019-08-07 05:22] LABS: Magnesium, Blood 1.9 mg/dL (1.6-2.4)
[2019-08-07 06:01] LABS: Alanine Aminotransfer (ALT/SGP 19 U/L (12-78); Albumin, Blood 2.7 g/dL (3.4-5.0); Alk Phos 74 U/L (50-136); Anion Gap 5 mmol/L (6-16); Aspartate Aminotrans (AST/SGOT 16 U/L (12-37); Bilirubin, Total 0.6 mg/dL (0.1-1.0); Blood Urea Nitrogen 13 mg/dL (8-24); Bun/Creatinine Ratio 21.6 (12.0-20.0); CO2, Blood 24 mmol/L (21-32); Calcium, Blood 8.1 mg/dL (8.5-10.1); Chloride, Blood 111 mmol/L (98-108); Glomerular Filtration Rate >60 (60-); Glucose, Blood 93 mg/dL (70-99); Potassium, Blood 3.3 mmol/L (3.5-5.5); Sodium, Blood 140 mmol/L (136-145)
[2019-08-07 06:03] LABS: Albumin/Globulin Ratio 0.8 (0.8-1.8); Globulin, Blood 3.3 g/dL (2.2-4.0)
--- NOTE | 2019-08-07 06:29 | NUR ---
SHIFT SUMMARY PT YELLED OUT CONSTANTLY @BEGINNING OF SHIFT LAST NIGHT. UNABLE TO ANSWER ORIENTATION QUESTIONS OR STATE HIS NEEDS JUST KEPT REPEATING "HELP" OR "PLEASE." VERY ANXIOUS & NEEDING CONSTANT REASURRING WHERE HE WAS. REPORTED MUSCLE SPASM & 6/10 PAIN IN SHOULDERS, MEDICATED 2X W/10MG OXYCODONE & PT STATED RELIEF. ABD VERY TIGHT/FIRM, DISTENDED. PT REPORTS STOMACH PAIN & STATED HE NEEDED TO HAVE BM. MEDICATED W/MIRALAX & PT HAD VERY LARGE HARD BM. SINCE BM PT HAS BEEN MORE ORIENTED & ABLE TO STATE HIS NEEDS. THIS AM PT IS ABLE TO ANSWER ORIENTATION QUESTIONS APPROPRIATE & RECALL MY NAME. LOW BP THIS AM, HOWEVER PT WAS RESTING, & BP MACHINE WAS ACTING UP, UNSURE HOW CORRECT 1ST BP WAS, WHEN RECHECKED BP WAS 95/52 & PT STATES HE OCCASIONALLY HAS LOWER BP & THIS IS NORMAL FOR HIM. DENIES N/V. QUADRAPLEGIC, STILL HAS GROSS MOVEMENT WITH BUE, ARMS ARE CONTRACTED. PRESSURE SORE RT HEEL W/BLACK SKIN, MEPILEX IN PLACE & BOOT ON. SUPERPUBIC CATH CHANGED 08/06/19 DAY SHIFT PER RN REPORT, DRAINING DARK ORANGE/RED URINE W/LOTS OF SEDIMENT, PURULENT DRAINAGE AROUNT CATH INSERTION SITE-CLEANED & APPLIED NEW 4X4 GAUZE. CALL LIGHT IN REACH.
[2019-08-07 18:50] LABS: Source, Urine Catheter
[2019-08-07 19:00] LABS: Appearance, Urine Clear (Clear); Bilirubin, Urine Neg (Neg); Blood, Urine 1+ (Neg); Color, Urine Yellow (P-Yellow); Glucose Qualitative, Urine Neg (Neg); Ketones, Urine Neg (Neg); Leukocyte Esterase, Urine 3+ (Neg); Nitrite, Urine Neg (Neg); Protein, Urine 1+ (Neg); Specific Gravity, Urine 1.015 (1.003-1.022); Urobilinogen, Urine NORM (Normal)
[2019-08-07 19:07] LABS: Red Blood Cells, Urine 0-2 /hpf (0-2)
[2019-08-07 19:08] LABS: Bacteria Mod /hpf; Mucus Light (0-Heavy); Squamous Epithelial Cells Rare /hpf (Few)
--- NOTE | 2019-08-07 19:13 | NUR ---
SHIFT SUMMARY GIAN COMPLAINED OF MILD R RIB PAIN, RECEIVED TYLENOL WHICH HELPED. HE REALLY HAD WANTED TO DC TODAY TO GO HOME, PER DR OLSON, WE NEED TO HAVE HIM STAY UNTIL CULTURE RESULTS ARE BACK. PT VERY ANXIOUS ABOUT THIS, DR OLSON ORDERED PRN ATIVAN WHICH HELPED. Q2 TURNS DONE. R HEEL ELEVATED. KELLER CARE DONE. CATHETER FLUSHED. GOT UP TO [facility] WITH EMILY IN ORDER TO HAVE BM, PT UNABLE TO HAVE ONE. TOOK MEDS PRESCRIBED. WCTM
--- NOTE | 2019-08-08 02:29 | NUR ---
ANXIOUS FROM [id number] PT HAD YELLED OUT A FEW TIMES "NURSE, NURSE" BUT EVERYTIME I WOULD GO IN HE WOULD BE SOUND ASLEEP. THEN AT 129 WHE I WENT IN HE STATED HE WAS "ANXIOUS" & HIS NERVES WERE BOTHERING HIM & HE COULDNT RELAX. MEDICATED W/0.5MG ATIVAN PER ORDERS & PT HAS BEEN RESTING WELL SINCE W/O ANY YELLING OUT. CALL LIGHT IN REACH. [facility].
[2019-08-08] MEDS ORDERED: NYAMYC15 G1 TOP (02:51)
[2019-08-08 05:16] LABS: BASOPHILS ABSOLUTE AUTO 0.08 K/mm3 (0.00-0.23); BASOPHILS PERCENT AUTO 1 % (0-2); EOSINOPHILS ABSOLUTE AUTO 0.44 K/mm3 (0.00-0.68); EOSINOPHILS PERCENT AUTO 7 % (0-6); Hematocrit 33.9 % (37.0-53.0); Hemoglobin 10.7 g/dL (13.5-17.5); IMMATURE GRAN ABSOLUTE AUTO 0.03 K/mm3 (0.00-0.10); IMMATURE GRAN PERCENT AUTO 1 % (0-1); LYMPHOCYTES ABSOLUTE AUTO 2.61 K/mm3 (0.84-5.20); LYMPHOCYTES PERCENT AUTO 43 % (21-46); MONOCYTES ABSOLUTE AUTO 0.74 K/mm3 (0.16-1.47); MONOCYTES PERCENT AUTO 12 % (4-13); Mean Corpuscular HGB 27.8 pg (26.0-34.0); Mean Corpuscular HGB Conc 31.6 g/dL (31.5-36.5); Mean Corpuscular Volume 88 fL (80-100); Mean Platelet Volume 8.4 fL (9.1-12.4); NEUTROPHILS ABSOLUTE AUTO 2.17 K/mm3 (1.96-9.15); NEUTROPHILS PERCENT AUTO 36 % (41-73); Platelet Count 333 K/mm3 (150-400); RDW Coefficient Variation 15.7 % (11.7-14.2); RDW Standard Deviation 50.4 fL (35.1-46.3); Red Blood Cell Count 3.85 M/mm3 (4.30-5.90); White Blood Cell Count 6.07 K/mm3 (4.00-11.30)
[2019-08-08 05:43] LABS: Anion Gap 4 mmol/L (6-16); Blood Urea Nitrogen 9 mg/dL (8-24); Bun/Creatinine Ratio 15.7 (12.0-20.0); CO2, Blood 25 mmol/L (21-32); Calcium, Blood 8.3 mg/dL (8.5-10.1); Chloride, Blood 114 mmol/L (98-108); Creatinine, Blood 0.58 mg/dL (0.60-1.20); Glomerular Filtration Rate >60 (60-); Glucose, Blood 88 mg/dL (70-99); Potassium, Blood 3.9 mmol/L (3.5-5.5); Sodium, Blood 143 mmol/L (136-145)
--- NOTE | 2019-08-08 07:50 | NUR ---
SHIFT SUMMARY AOX4. VSS. DENIED PAIN LAST NIGHT. DENIED N/V OR DYSPNEA. REPORTED ANXIETY, MEDICATED 1X W/0.5 MG ATIVAN. SUPERPUBIC CATH PATENT & DRAINING CLEAR YELLOW URINE, FLUSHED TO PREVENT BLOCKAGE SINCE PT IS KNOWN TO HAVE SEDIMENT WHICH CAN CLOG CATH PER CAREGIVER. SCANT AMOUNT SEROSANGUINOUS DRAINAGE AROUND CATH INSERTION SITE. DRESSINGS CHANGED ON BILAT HEELS. TURNED & REPOSITIONED. PT HOPING TO DC BACK TO [facility]. CALL LIGHT IN REACH.
--- NOTE | 2019-08-08 15:55 | NUR ---
DISCHARGE INSTRUCTIONS COMPLETED AND DISCUSSED WITH PT EXPRESSING UNDERSTANDING. SCRIPTS FAXED TO [facility]. TO [facility] VIA W/C WITH MOTHER PICKING HIM UP.
[2019-08-08] MEDS ORDERED: AZO CRANBERRY PO (15:58)
--- NOTE | 2019-08-08 18:33 | NUR ---
DISCHARGE INSTRUCTIONS COMPLETED AND DISCUSSED WITH PT EXPRESSING UNDERSTANDING OF NEW MEDICATION. DID CALL AND LEAVE A MESSAGE WITH [facility]IV[facility] AT BUT NO RETURN CALL NOTED. TO [facility] VIA [facility].
== END 2019-08-08 17:33 | disposition home or self-care (01) | DRG 698 ==
LOC: ER 03:32 → MEDS 11:25
PROVIDERS: Emergency Medicine; Internal Medicine; ADMIT Internal Medicine
DX: T83.511A Infection and inflammatory reaction due to indwelling urethral catheter, initial encounter (principal); G82.52 Quadriplegia, C1-C4 incomplete; G93.41 Metabolic encephalopathy; E27.40 Unspecified adrenocortical insufficiency; N39.0 Urinary tract infection, site not specified; E87.6 Hypokalemia; D64.9 Anemia, unspecified; G90.4 Autonomic dysreflexia; E03.9 Hypothyroidism, unspecified; F32.9 Major depressive disorder, single episode, unspecified; Z74.01 Bed confinement status; Z87.440 Personal history of urinary (tract) infections; Z87.891 Personal history of nicotine dependence; Z88.2 Allergy status to sulfonamides; Z88.8 Allergy status to other drugs, medicaments and biological substances; Z79.82 Long term (current) use of aspirin; Z79.899 Other long term (current) drug therapy
CPT/HCPCS: 36415; 71045; 73600; 80048; 80053; 81001; 83735; 85025; 87086; 96365; 96375; 99285-25; A9270; A9270-GY; J0696; J1650; J2060; J7030

== ENCOUNTER 2019-09-10 10:34 | Emergency (ER) | payer MEDICARE, OTHER ==
[~2019-09-10] VITALS: Ht 182.9 cm; Wt 72.6 kg
[~2019-09-10 10:34] MED LIST changes: +ALMACONE SUSPE355 ML PO; +AZO CRANBERRY PO; +BACLOFEN5 MG PO; +BANOPHEN PO; +BISMATROL262 MG/15 PO; +Cymbalta30 MG PO; +DIPHEN12.5 MG/2 PO; +DOCU100 PO; +DOCUSATE S283 MG/51 PR; +EXTRA PAIN REL1 EAC2 PO; +Hydrocortiso453.6 G1 TOP; +Keflex500 MG PO; +LOPE2C PO; +NYAMYC15 G1 TOP; +Neurontin400 MG PO; -OLAN5 PO; +SYNTHROID50 MC1 PO; +VISBIOME PO
== END 2019-09-10 15:04 | disposition home or self-care (01) ==
LOC: ER 10:34
DX: T83.89XA Other specified complication of genitourinary prosthetic devices, implants and grafts, initial encounter (principal); R33.9 Retention of urine, unspecified; Z88.2 Allergy status to sulfonamides; Z88.8 Allergy status to other drugs, medicaments and biological substances; Z79.899 Other long term (current) drug therapy; Z79.82 Long term (current) use of aspirin; F41.9 Anxiety disorder, unspecified; F32.9 Major depressive disorder, single episode, unspecified; Z87.891 Personal history of nicotine dependence
CPT/HCPCS: 99283-25

== ENCOUNTER 2021-02-15 23:39 | Emergency (ER) | payer MEDICARE, OTHER ==
[~2021-02-15] VITALS: Ht 188 cm; Wt 88.5 kg
== END 2021-02-16 01:30 | disposition home or self-care (01) ==
LOC: ER 23:39
DX: T83.098A Other mechanical complication of other urinary catheter, initial encounter (principal); G40.909 Epilepsy, unspecified, not intractable, without status epilepticus; Z88.2 Allergy status to sulfonamides; Z88.8 Allergy status to other drugs, medicaments and biological substances; Z79.899 Other long term (current) drug therapy; Z79.82 Long term (current) use of aspirin; Z87.891 Personal history of nicotine dependence
CPT/HCPCS: 51102; 99283-25

== ENCOUNTER 2021-06-16 19:17 | Inpatient (IN) | payer MEDICARE, OTHER ==
[~2021-06-16] VITALS: Ht 185.4 cm; Wt 107.9 kg
[2021-06-16 20:09] LABS: BASOPHILS ABSOLUTE AUTO 0.08 K/mm3 (0.00-0.23); BASOPHILS PERCENT AUTO 1 % (0-2); EOSINOPHILS ABSOLUTE AUTO 0.56 K/mm3 (0.00-0.68); EOSINOPHILS PERCENT AUTO 4 % (0-6); Hemoglobin 15.3 g/dL (13.5-17.5); IMMATURE GRAN ABSOLUTE AUTO 0.08 K/mm3 (0.00-0.10); IMMATURE GRAN PERCENT AUTO 1 % (0-1); LYMPHOCYTES ABSOLUTE AUTO 4.69 K/mm3 (0.84-5.20); LYMPHOCYTES PERCENT AUTO 36 % (21-46); MONOCYTES ABSOLUTE AUTO 0.79 K/mm3 (0.16-1.47); MONOCYTES PERCENT AUTO 6 % (4-13); Mean Corpuscular HGB 29.4 pg (26.0-34.0); Mean Corpuscular HGB Conc 32.6 g/dL (31.5-36.5); Mean Corpuscular Volume 90 fL (80-100); Mean Platelet Volume 9.3 fL (9.1-12.4); NEUTROPHILS ABSOLUTE AUTO 6.72 K/mm3 (1.96-9.15); NEUTROPHILS PERCENT AUTO 52 % (41-73); Platelet Count 373 K/mm3 (150-400); RDW Coefficient Variation 16.1 % (11.7-14.2); RDW Standard Deviation 53.2 fL (35.1-46.3); White Blood Cell Count 12.92 K/mm3 (4.00-11.30)
[2021-06-16 20:17] LABS: Source, Urine Suprapubic Cath
[2021-06-16 20:18] LABS: Alanine Aminotransfer (ALT/SGP 25 U/L (12-78); Alk Phos 108 U/L (50-136); Anion Gap 11 mmol/L (6-16); Aspartate Aminotrans (AST/SGOT 16 U/L (12-37); Bilirubin, Total 0.3 mg/dL (0.1-1.0); Blood Urea Nitrogen 14 mg/dL (8-24); Bun/Creatinine Ratio 22.6 (12.0-20.0); CO2, Blood 24 mmol/L (21-32); Calcium, Blood 9.6 mg/dL (8.5-10.1); Chloride, Blood 106 mmol/L (98-108); Creatinine, Blood 0.62 mg/dL (0.60-1.20); Globulin, Blood 4.1 g/dL (2.2-4.0); Glomerular Filtration Rate >60 (60-); Glucose, Blood 110 mg/dL (70-99); Potassium, Blood 4.1 mmol/L (3.5-5.5); Sodium, Blood 141 mmol/L (136-145); Total Protein, Blood 8.1 g/dL (6.4-8.2)
[2021-06-16 20:20] LABS: Appearance, Urine Hazy (Clear); Bilirubin, Urine Neg (Neg); Blood, Urine 5+ (Neg); Color, Urine Red (P-Yellow); Glucose Qualitative, Urine Neg (Neg); Ketones, Urine 1+ (Neg); Leukocyte Esterase, Urine 2+ (Neg); Nitrite, Urine Pos (Neg); Protein, Urine 3+ (Neg); Specific Gravity, Urine 1.005 (1.003-1.022); Urobilinogen, Urine NORM (Normal)
[2021-06-16 20:30] LABS: Red Blood Cells, Urine 50-100 /hpf (0-2)
[2021-06-16 20:33] LABS: Amorphous Light (0-Heavy); Bacteria Many /hpf; Squamous Epithelial Cells Rare /hpf (Few)
[2021-06-17 00:42] LABS: BASOPHILS ABSOLUTE AUTO 0.07 K/mm3 (0.00-0.23); BASOPHILS PERCENT AUTO 1 % (0-2); EOSINOPHILS ABSOLUTE AUTO 0.21 K/mm3 (0.00-0.68); EOSINOPHILS PERCENT AUTO 2 % (0-6); Hematocrit 40.7 % (37.0-53.0); Hemoglobin 13.4 g/dL (13.5-17.5); IMMATURE GRAN ABSOLUTE AUTO 0.08 K/mm3 (0.00-0.10); IMMATURE GRAN PERCENT AUTO 1 % (0-1); LYMPHOCYTES ABSOLUTE AUTO 1.36 K/mm3 (0.84-5.20); LYMPHOCYTES PERCENT AUTO 10 % (21-46); MONOCYTES ABSOLUTE AUTO 1.51 K/mm3 (0.16-1.47); MONOCYTES PERCENT AUTO 11 % (4-13); Mean Corpuscular HGB 29.8 pg (26.0-34.0); Mean Corpuscular HGB Conc 32.9 g/dL (31.5-36.5); Mean Corpuscular Volume 91 fL (80-100); Mean Platelet Volume 8.9 fL (9.1-12.4); NEUTROPHILS ABSOLUTE AUTO 10.75 K/mm3 (1.96-9.15); NEUTROPHILS PERCENT AUTO 77 % (41-73); Platelet Count 288 K/mm3 (150-400); RDW Coefficient Variation 16.3 % (11.7-14.2); RDW Standard Deviation 54.2 fL (35.1-46.3); Red Blood Cell Count 4.49 M/mm3 (4.30-5.90); White Blood Cell Count 13.98 K/mm3 (4.00-11.30)
[2021-06-17 00:59] LABS: Alanine Aminotransfer (ALT/SGP 19 U/L (12-78); Albumin/Globulin Ratio 0.9 (0.8-1.8); Alk Phos 78 U/L (50-136); Anion Gap 7 mmol/L (6-16); Aspartate Aminotrans (AST/SGOT 13 U/L (12-37); Bilirubin, Total 0.2 mg/dL (0.1-1.0); Blood Urea Nitrogen 14 mg/dL (8-24); Bun/Creatinine Ratio 26.9 (12.0-20.0); CO2, Blood 23 mmol/L (21-32); Calcium, Blood 8.2 mg/dL (8.5-10.1); Chloride, Blood 112 mmol/L (98-108); Creatinine, Blood 0.52 mg/dL (0.60-1.20); Globulin, Blood 3.3 g/dL (2.2-4.0); Glomerular Filtration Rate >60 (60-); Glucose, Blood 100 mg/dL (70-99); Sodium, Blood 142 mmol/L (136-145); Total Protein, Blood 6.3 g/dL (6.4-8.2)
--- NOTE | 2021-06-17 05:23 | NUR ---
SHIFT SUMMARY: NEURO - PT AOX4, FORGETFUL AND NEEDS REMINDERS OF CARE & TX PLAN. DOES WANT TO GO HOME TODAY AND DENIES ANY PAIN. PT STATES HE FEELS BETTER AND NEEDS TO GO HOME SOON POSSIBLE. PT IS A QUAD, ABLE TO MOVE ARMS, VERY LIMITED RANGE. 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 BILAT LOWER EXT DO NOT MOVE TO PAINFUL STIMULI. PATIENT DOES HAVE SPONTENOUS SPASTICITY ON BOTH ARMS - HE IS UNABLE TO CONTROL THIS MOVEMENT. CEILING LIFT USED TO REPOSITION PATIENT. RESP - ON ROOM AIR, NO COUGH. LUNGS ARE CLEAR/DIMINISHED. CARDIAC - BP OBTAINED ON LEFT LEG DUE TO SPASTICITY ON BOTH ARMS. DOPPLER USED FOR PULSES, WEAK RADIAL PULSES. AFEBRILE. EDEMATOUS BILAT LOWER EXT. HR 80's SINUS RHYTHM WITH FREQUENT PVCs. SHIVERING UPON ADMISSION DESPITE NORMOTHERMIA. GERHARD HUGGER ON PER PATIENT'S REQUEST. GI/ - PT NPO AND USED SWABS TO HELP WITH THIRST AND DRYNESS. NO BM. URINE OUTPUT STILL TEA COLORED, CLOUDY WITH FOUL ODOR. INTEG - PATIENT DID NOT WANT TO GET REPOSITIONED OVERNIGHT. EDUCATED PT REGARDING PRESSURE ULCER PREVENTION AND MOBILITY. INFUSIONS - NORMAL SALINE
--- NOTE | 2021-06-17 07:30 | NUR ---
INITIAL ASSESSMENT: Patient is alert and oriented, he denies pain at this time. 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 He has no senstaion to his BLE and only spastic sporadic movement of muscles. 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 He states he has numbness and tingling to both hands since the accident. He has a brace to the right hand. HRR. LS CTA, Biox 98% on RA. ABD slightly distended, BT hypoactive. Patient was assisted to the [facility] via chair lift to attempt to have a BM with no success. PPP. BLE are red but cool to the touch. Good pulses. VSS. Patient states he is comfortable in bed, he denies other needs at this time. WCTM.
--- NOTE | 2021-06-17 11:30 | NUR ---
Update: Patient has been resting comfortably wth eyes closed resp e/u. Blood pressure soft with a MAP of 60, I discussed with the patient his midodrine. Pt states he does not want that at this time. I will reassess and discuss this with him again. Patient was able to tolerate some regular lunch. Patient denies other needs at this time. WCTM.
--- NOTE | 2021-06-17 17:30 | NUR ---
Summary: Patient has been alert and oriented t/o the shift. He is a quadraplegic from an accident a few years ago. He has full sensation, some spastic uncontrolled movements of BUE and BLE. He has no movement of BLE. BUE he is able to move his arms however he is not able to move his fingers. He has chronic N/T of BUE. He C/O pain in his shoulders once for me today, he was medicated with his home dose of 10 MG Oxycodone. HRR, SR in the 70s-80s. Blood pressure was soft with a MAP of 60 around 11am, this increased with one dose of Midodrine. BT+. His oxygen saturations have been stable on RA. Pt was assisted the BSC once today to attempt to have BM with no success, bowel care was given. Per patients healthcare network consultant his last BM was on Tuesday and chronic constipation is an ongoing issue for the patient. Super pubic cath patent and draining cloudy priscila urine with sediment-this was changed in the Emergency Room. Patient is currently resting comfortably resp e/u. No acute changes this shift, will report to oncoming RN.
[2021-06-18 04:42] LABS: BASOPHILS PERCENT AUTO 1 % (0-2); EOSINOPHILS PERCENT AUTO 5 % (0-6); Hematocrit 35.8 % (37.0-53.0); Hemoglobin 11.6 g/dL (13.5-17.5); Mean Corpuscular HGB 29.4 pg (26.0-34.0); Mean Corpuscular HGB Conc 32.4 g/dL (31.5-36.5); Mean Corpuscular Volume 91 fL (80-100); NEUTROPHILS PERCENT AUTO 45 % (41-73); RDW Coefficient Variation 16.8 % (11.7-14.2); RDW Standard Deviation 56.2 fL (35.1-46.3); Red Blood Cell Count 3.95 M/mm3 (4.30-5.90); White Blood Cell Count 6.82 K/mm3 (4.00-11.30)
[2021-06-18 04:56] LABS: Albumin, Blood 2.9 g/dL (3.4-5.0); Anion Gap 7 mmol/L (6-16); Blood Urea Nitrogen 13 mg/dL (8-24); Bun/Creatinine Ratio 21.5 (12.0-20.0); CO2, Blood 25 mmol/L (21-32); Calcium, Blood 8.2 mg/dL (8.5-10.1); Chloride, Blood 110 mmol/L (98-108); Glomerular Filtration Rate >60 (60-); Glucose, Blood 83 mg/dL (70-99); Phosphorus, Blood 3.4 mg/dL (2.5-4.9); Potassium, Blood 3.6 mmol/L (3.5-5.5); Sodium, Blood 142 mmol/L (136-145)
--- NOTE | 2021-06-18 06:00 | NUR ---
SHIFT SUMMARY PT ALERT AND ORIENTED X4. ON RA SATS OVER 95%. BP STABLE. PULSES SR 60-80'S. AFEBRILE. ON BED REST, Q2 TURNS. PT REFUSED SUPPOSITORY, PREFERS TO HAVE BM AT HOME. WILL CALL OUT WHEN HE HAS NEEDS, DOES NOT USE CALL ALARM. C/O 5/10 SHOULDER PAIN, MEDICATED PER EMAR. IN BED SLEEPING WITH BED IN LOW POSITION, WILL CONTINUE TO MONITOR UNTIL REPORT GIVEN TO DAYSHIFT RN
[2021-06-18 06:07] LABS: BASOPHILS ABSOLUTE AUTO 0.06 K/mm3 (0.00-0.23); EOSINOPHILS ABSOLUTE AUTO 0.33 K/mm3 (0.00-0.68); IMMATURE GRAN ABSOLUTE AUTO 0.06 K/mm3 (0.00-0.10); IMMATURE GRAN PERCENT AUTO 1 % (0-1); LYMPHOCYTES ABSOLUTE AUTO 2.48 K/mm3 (0.84-5.20); LYMPHOCYTES PERCENT AUTO 36 % (21-46); MONOCYTES PERCENT AUTO 12 % (4-13); Mean Platelet Volume 9.5 fL (9.1-12.4); NEUTROPHILS ABSOLUTE AUTO 3.09 K/mm3 (1.96-9.15); Platelet Count 259 K/mm3 (150-400)
--- NOTE | 2021-06-18 08:04 | NUR ---
Omar says that he is fasting today, and part of the reason is because he can't have a BM here. States that the set up is not like he has at home, and the suppository here is not the same either. He doesn't want to sit on the BSC for 3 hours trying to have a BM at the hospital. States he wants to go home today.
--- NOTE | 2021-06-19 05:48 | NUR ---
SHIFT SUMMARY PT ALERT AND ORIENTED X4. AFEBRILE. HR 50-70'S. BP STABLE. ON RA SATS OVER 95. BED REST. SUPRAPUBIC KELLER DRAINING MARGOTH COLORED URINE TO GRAVITY. C/O 510 SHOULDER PAIN. RELIEVED PER MAR. IN BED SLEEPING WITH CALL ALARM AT SIDE, WILL CONTINUE TO MONITOR UNTIL REPORT GIVEN TO DAYSHIFT RN
--- NOTE | 2021-06-19 09:20 | NUR ---
CARE ASSUMPTION THIS RN ASSUMED CARE FROM ADRIANNA BAINS AT 0700. VSS. SPO2 >90% ON RA. PATIENT IS ALERT AND ORIENTED X4. PERRLA. NEURO IS INTACT. PATIENT REPORTS NO NUMBNESS OR TINGLING. PATIENT REPORTS NO CHEST PAIN. STRONG RADIAL AND PEDIS PULSE. CAP REFILL <3SECONDS. PATIENT REPORTS NO SHORTNESS OF BREATH. LUNG SOUNDS CLEAR. PATIENT ABD IS MODERATELY DISTENDED, HYPOACTIVE, & NONTENDER. SKIN IS CLEAN DRY AND INTACT. SUPRAPUBIC CATH IN PLACE DRAINING WITH GRAVITY CLOUDY YELLOW COLORATION. SEE SHIFT ASSESSMENT FOR FUL DETAILS. THIS RN PERFORMED RANGE OF MOTION ACTIVITIES WITH THE PATIENT THIS AM. THIS RN PROVIDED THERAPEUTIC COMMUNICATION AND ACTIVE LISTENING. DEIDRA REPORTS NO NEW CONCERNS OR QUESTIONS AT THIS TIME. PATIENT ASSISTED WITH MORNING CARE AND BREAKFAST. BED IN LOWEST POSITION AND CALL LIGHT WITHIN REACH. WILL CONTINUE TO MONITOR AND PROVIDE CARE.
[2021-06-19] MEDS ORDERED: VISBIOME 112.51 EACH PO (11:41)
[2021-06-19] MEDS ORDERED: AMOCLA875 PO (11:41)
--- NOTE | 2021-06-19 14:41 | NUR ---
DISCHARGE EDUCATION THIS RN WENT OVER THE DISCHARGE INSTRUCTIONS WITH THE PATIENT. THIS RN DISCUSSED THE PATIENT ABX AND PROBIOTIC THAT ARE NEW MEDICATIONS AND STRESSED THE IMPORTANCE OF COMPLETING THE ENTIRE ABX EVEN IF FEELING BETTER. THIS RN WENT OVER DISCHARGE EDUCATION REGARDING SEPSIS. PATIENT VERABLIZED UNDERSTANDING AND CAITIE BAINS, WAS MY SECOND WITNESS FOR VERBAL CONSENT FOR SIGNING HIS DISCHARGE PAPER WORK SINCE THE PATIENT WASN'T ABLE TOO. THIS RN REMOVED THE IV. ALL OF PATIENT BELONGINGS GATHERED.
--- NOTE | 2021-06-19 14:52 | NUR ---
DISCHARGE PATIENT RIDE ARRIVED AND PATIENT LEFT VIA WHEELCHAIR WITH PATIENT BELONGINGS AND DISCHARGE EDUCATION. PATIENT WAS IN NO DISTRESS WHEN LEAVING.
== END 2021-06-19 14:50 | disposition home or self-care (01) | DRG 698 ==
LOC: ER 19:17 → ERHOLD 21:42 → PCU 21:42
PROVIDERS: Internal Medicine; Physician Assistant; ADMIT Internal Medicine
DX: T83.510A Infection and inflammatory reaction due to cystostomy catheter, initial encounter (principal); A41.9 Sepsis, unspecified organism; G82.52 Quadriplegia, C1-C4 incomplete; E87.2 Acidosis; E27.40 Unspecified adrenocortical insufficiency; N39.0 Urinary tract infection, site not specified; T83.090A Other mechanical complication of cystostomy catheter, initial encounter; R51.9 Headache, unspecified; G40.909 Epilepsy, unspecified, not intractable, without status epilepticus; G90.4 Autonomic dysreflexia; F12.10 Cannabis abuse, uncomplicated; I65.29 Occlusion and stenosis of unspecified carotid artery; R41.82 Altered mental status, unspecified; F41.8 Other specified anxiety disorders; I95.9 Hypotension, unspecified; Z86.73 Personal history of transient ischemic attack (TIA), and cerebral infarction without residual deficits; Z88.0 Allergy status to penicillin; Z88.8 Allergy status to other drugs, medicaments and biological substances; Z87.891 Personal history of nicotine dependence; Z98.890 Other specified postprocedural states; Z79.82 Long term (current) use of aspirin; Z79.899 Other long term (current) drug therapy; Z88.2 Allergy status to sulfonamides; Z79.891 Long term (current) use of opiate analgesic; Z82.49 Family history of ischemic heart disease and other diseases of the circulatory system; Z86.19 Personal history of other infectious and parasitic diseases; F32.A Depression, unspecified; F41.9 Anxiety disorder, unspecified; Z88.1 Allergy status to other antibiotic agents
CPT/HCPCS: 36415; 70450; 71045; 80053; 80069; 81001; 83605; 85025; 87040; 87077; 87086; 87186; 93005; 93010; 96361; 96365; 96375; 99285-25; A9270; J0692; J0696; J1650; J1885; J2185; J3010; J7030

== ENCOUNTER 2021-07-10 20:52 | Emergency (ER) | payer MEDICARE, OTHER ==
[~2021-07-10] VITALS: Ht 195.6 cm; Wt 90.7 kg
[~2021-07-10 20:52] MED LIST changes: +AMOCLA875 PO; +VISBIOME 112.51 EACH PO
[2021-07-10 23:47] LABS: Source, Urine Foley catheter
[2021-07-10 23:50] LABS: Bilirubin, Urine Neg (Neg); Blood, Urine 5+ (Neg); Glucose Qualitative, Urine Neg (Neg); Ketones, Urine Neg (Neg); Leukocyte Esterase, Urine 3+ (Neg); Nitrite, Urine Pos (Neg); Protein, Urine Neg (Neg); Specific Gravity, Urine 1.005 (1.003-1.022); Urobilinogen, Urine NORM (Normal)
[2021-07-10 23:53] LABS: Appearance, Urine Hazy (Clear); Color, Urine Yellow (P-Yellow)
[2021-07-11 00:01] LABS: Bacteria Many /hpf; Red Blood Cells, Urine Rare /hpf (0-2); Squamous Epithelial Cells Rare /hpf (Few); White Blood Cells, Urine TNTC /hpf (0-5)
[2021-07-11] MEDS ORDERED: Amoxicillin875 MG PO (00:08)
== END 2021-07-11 01:07 | disposition other institution (70) ==
LOC: ER 20:52
PROVIDERS: Emergency Medicine
DX: T83.098A Other mechanical complication of other urinary catheter, initial encounter (principal); Y73.8 Miscellaneous gastroenterology and urology devices associated with adverse incidents, not elsewhere classified; N39.0 Urinary tract infection, site not specified; G82.50 Quadriplegia, unspecified; Z88.2 Allergy status to sulfonamides; Z88.0 Allergy status to penicillin; Z88.1 Allergy status to other antibiotic agents; Z79.899 Other long term (current) drug therapy; Z87.891 Personal history of nicotine dependence
CPT/HCPCS: 81001; 87086; A9270

== ENCOUNTER 2021-07-16 12:45 | Inpatient (IN) | payer MEDICARE, OTHER ==
[~2021-07-16] VITALS: Ht 182.9 cm; Wt 90.7 kg
[~2021-07-16 12:45] MED LIST changes: +Amoxicillin875 MG PO; -Cymbalta30 MG PO; +DULO60 PO; +OLAN5 PO
[2021-07-16 13:33] LABS: Albumin, Blood 2.8 g/dL (3.4-5.0); Albumin/Globulin Ratio 0.7 (0.8-1.8); Bilirubin, Direct 0.2 mg/dL (0.0-0.3); Bilirubin, Indirect 0.5 mg/dL (0.1-0.7); Bilirubin, Total 0.7 mg/dL (0.1-1.0); Bun/Creatinine Ratio 13.1 (12.0-20.0); Calcium, Blood 8.6 mg/dL (8.5-10.1); Creatinine, Blood 0.54 mg/dL (0.60-1.20); Phosphorus, Blood 2.3 mg/dL (2.5-4.9); Potassium, Blood 3.4 mmol/L (3.5-5.5); Total Protein, Blood 6.8 g/dL (6.4-8.2)
[2021-07-16 13:47] LABS: BASOPHILS ABSOLUTE AUTO 0.06 K/mm3 (0.00-0.23); BASOPHILS PERCENT AUTO 0 % (0-2); EOSINOPHILS ABSOLUTE AUTO 0.07 K/mm3 (0.00-0.68); EOSINOPHILS PERCENT AUTO 1 % (0-6); Hemoglobin 11.5 g/dL (13.5-17.5); IMMATURE GRAN ABSOLUTE AUTO 0.04 K/mm3 (0.00-0.10); IMMATURE GRAN PERCENT AUTO 0 % (0-1); LYMPHOCYTES ABSOLUTE AUTO 1.84 K/mm3 (0.84-5.20); LYMPHOCYTES PERCENT AUTO 12 % (21-46); MONOCYTES ABSOLUTE AUTO 2.14 K/mm3 (0.16-1.47); MONOCYTES PERCENT AUTO 14 % (4-13); Mean Corpuscular HGB 29.1 pg (26.0-34.0); Mean Corpuscular HGB Conc 33.8 g/dL (31.5-36.5); Mean Corpuscular Volume 86 fL (80-100); Mean Platelet Volume 9.2 fL (9.1-12.4); NEUTROPHILS ABSOLUTE AUTO 11.18 K/mm3 (1.96-9.15); NEUTROPHILS PERCENT AUTO 73 % (41-73); Platelet Count 357 K/mm3 (150-400); RDW Coefficient Variation 14.2 % (11.7-14.2); RDW Standard Deviation 44.7 fL (35.1-46.3); Red Blood Cell Count 3.95 M/mm3 (4.30-5.90); White Blood Cell Count 15.33 K/mm3 (4.00-11.30)
[2021-07-16 14:06] LABS: Influenza A, PCR NEGATIVE (NEGATIVE); Influenza B, PCR NEGATIVE (NEGATIVE); Resp Syncytial Virus, PCR NEGATIVE (NEGATIVE); SARS-Cov-2 (COVID-19) PCR, MMC NEGATIVE (NEGATIVE)
[2021-07-16 14:30] LABS: Appearance, Urine Hazy (Clear); Bilirubin, Urine Neg (Neg); Blood, Urine 2+ (Neg); Color, Urine Yellow (P-Yellow); Glucose Qualitative, Urine Neg (Neg); Ketones, Urine 3+ (Neg); Leukocyte Esterase, Urine 3+ (Neg); Nitrite, Urine Pos (Neg); Protein, Urine Neg (Neg); Source, Urine Clean Catch; Urobilinogen, Urine NORM (Normal)
[2021-07-16 14:44] LABS: Squamous Epithelial Cells Few /hpf (Few); White Blood Cells, Urine 25-50 /hpf (0-5)
[2021-07-16 14:45] LABS: Bacteria Many /hpf; Red Blood Cells, Urine 0-2 /hpf (0-2)
--- NOTE | 2021-07-16 19:13 | NUR ---
SHIFT SUMMARY PT IS RESTING IN BED COMFORTABLY, ALARM WITHIN REACH. HE RECIEVED PAIN MEDICATIONS FOR HIS CHRONIC PAIN. HE HAS A MOIST WET COUGH AND WAS ENGOURAGED TO CALL WHEN HE NEEDED TO BE SUCTIONED. HE IS AXO, PLEASANT AND COOPERATIVE. PT IS HOPEFUL TO RECIEVE ABX AND RETURN HOME TOMORROW.
--- NOTE | 2021-07-17 05:14 | NUR ---
Patient with low grade temp at beginning of shift. Patient shaky and cold. Tylenol administered with relief. Patient with c/o shoulder pain. see MAR. Patient able to swallow pills whole with water. Skin inspection reveals no acute skin issues. Patient turned Q2hrs. Heels floated, SP catheter patent with hazy yellow urine. IV antibiotics administered for UTI.
[2021-07-17 05:26] LABS: Hematocrit 33.6 % (37.0-53.0); Hemoglobin 11.1 g/dL (13.5-17.5); Mean Corpuscular HGB 28.7 pg (26.0-34.0); Mean Corpuscular Volume 87 fL (80-100); Mean Platelet Volume 9.3 fL (9.1-12.4); Platelet Count 340 K/mm3 (150-400); RDW Coefficient Variation 14.3 % (11.7-14.2); Red Blood Cell Count 3.87 M/mm3 (4.30-5.90); White Blood Cell Count 14.03 K/mm3 (4.00-11.30)
[2021-07-17 06:11] LABS: Bun/Creatinine Ratio 12.8 (12.0-20.0); Calcium, Blood 8.5 mg/dL (8.5-10.1); Creatinine, Blood 0.47 mg/dL (0.60-1.20); Magnesium, Blood 2.1 mg/dL (1.6-2.4); Potassium, Blood 3.3 mmol/L (3.5-5.5)
--- NOTE | 2021-07-17 12:42 | NUR ---
PATIENT'S PCP IS DR. FADIA SANCHEZ FROM [facility] IN [place], [place] [address]. HE DOES NOT HAVE A LOCAL PCP AT THIS TIME.
--- NOTE | 2021-07-17 17:32 | NUR ---
SHIFT SUMMARY: NO ACUTE EVENTS. A&O X 3, PLEASANT. SUPRAPUBIC CATHETER DRAINING ADEQUATE URINE. PT CHEWS TOBACCO AT HOME; APPLIED NICOTINE PATCH PER HIS REQUEST. POTASSIUM REPLACED. MEDICATED FOR CHRONIC PAIN X 1 THIS SHIFT WITH ADEQUATE RELIEF. LEYLA, SORT LINE OF PT'S [facility], VISITED TODAY; GAVE THIS AUTHOR CORRECTED INFORMATION ABOUT PT'S PCP IN [place] AND THIS WAS UPDATED THROUGH ADMITTING. AWAITING URINE CULTURE RESULTS.
--- NOTE | 2021-07-18 04:43 | NUR ---
Patient with low grade temp at beginning of shift. Tylenol admininistered. Skin inspection reveals no acute skin issues. Turned Q2 hrs. Heels elevated. Superpubic catheter in place. Patent with hazy yellow urine. Patient alert and conversive. Loose, moist cough noted without sputum production.
[2021-07-18 06:04] LABS: Bun/Creatinine Ratio 14.7 (12.0-20.0); Calcium, Blood 8.4 mg/dL (8.5-10.1); Creatinine, Blood 0.54 mg/dL (0.60-1.20); Potassium, Blood 3.7 mmol/L (3.5-5.5)
[2021-07-18 13:41] LABS: Source, Urine Clean Catch
[2021-07-18 13:46] LABS: Appearance, Urine Clear (Clear); Bilirubin, Urine Neg (Neg); Blood, Urine 5+ (Neg); Color, Urine Yellow (P-Yellow); Glucose Qualitative, Urine Neg (Neg); Ketones, Urine Neg (Neg); Leukocyte Esterase, Urine 1+ (Neg); Nitrite, Urine Neg (Neg); Protein, Urine 1+ (Neg); Specific Gravity, Urine 1.005 (1.003-1.022); Urobilinogen, Urine 1+ (Normal)
--- NOTE | 2021-07-18 14:02 | NUR ---
DISCONTINUED PRIOR SUPRA-PUBIC CATHETER AMD URINE WAS YELLOW WITH NO SEDIMENT. SKIN CLEANED OFF WITH WARM SOAP AND WATER TO RINSE FOR PLACEMENT OF NEW SUPRA-PUBIC.
[2021-07-18 14:03] LABS: Bacteria Few /hpf; Squamous Epithelial Cells Rare /hpf (Few)
--- NOTE | 2021-07-18 15:55 | NUR ---
SUPRAPUBIC CATHETER CHANGED BY Dian HILL RN FROM [facility]. STERILE URINE SPECIMEN SENT TO LAB. PT GIVEN FOSAMYCIN PO AT 1333, WATCHED FOR 1 HOUR, NO SIDE EFFECTS REPORTED.
--- NOTE | 2021-07-18 17:14 | NUR ---
PATIENT DISCHARGED TO HOME (HIS HANDS LAURA) IN RIDDLE. IV SALINE LOCK REMOVED WITHOUT INCIDENT. DISCHARGE INSTRUCTIONS AND PRINTED EMAR SENT WITH PATIENT. OFF UNIT AT 1713 VIA GURNEY TRANSPORT. NO BELONGINGS LEFT BEHIND IN ROOM.
[2021-07-24] MEDS ORDERED: LEVFLO500 PO (17:38)
== END 2021-07-18 17:13 | disposition home or self-care (01) | DRG 698 ==
LOC: ER 12:45 → MEDS 16:17
PROVIDERS: Emergency Medicine; Internal Medicine; Nurse Practitioner Acute Care; ADMIT Internal Medicine
DX: T83.511A Infection and inflammatory reaction due to indwelling urethral catheter, initial encounter (principal); A41.9 Sepsis, unspecified organism; G82.50 Quadriplegia, unspecified; G92.8 Other toxic encephalopathy; R65.20 Severe sepsis without septic shock; F11.20 Opioid dependence, uncomplicated; I95.9 Hypotension, unspecified; Z20.822 Contact with and (suspected) exposure to COVID-19; G89.29 Other chronic pain; S14.159A Other incomplete lesion at unspecified level of cervical spinal cord, initial encounter; F41.9 Anxiety disorder, unspecified; F32.A Depression, unspecified; E87.6 Hypokalemia; G40.909 Epilepsy, unspecified, not intractable, without status epilepticus; Z98.890 Other specified postprocedural states; Z87.440 Personal history of urinary (tract) infections; Z88.0 Allergy status to penicillin; Z88.2 Allergy status to sulfonamides; Z88.1 Allergy status to other antibiotic agents; Z79.82 Long term (current) use of aspirin; Z79.899 Other long term (current) drug therapy; W01.198A Fall on same level from slipping, tripping and stumbling with subsequent striking against other object, initial encounter; Y84.6 Urinary catheterization as the cause of abnormal reaction of the patient, or of later complication, without mention of misadventure at the time of the procedure
CPT/HCPCS: 0241U; 36415; 51705; 70450; 71045; 80048; 80053; 81001; 82248; 83605; 83735; 84100; 84145; 85025; 85027; 87040; 87086; 93005; 93010; 96361; 96374; 96375; 99285-25; A9270; J0696; J1650; J2543; J7030

== ENCOUNTER 2021-07-28 12:02 | Observation (INO) | payer MEDICARE, OTHER ==
[~2021-07-28] VITALS: Ht 182.9 cm; Wt 97.5 kg
[~2021-07-28 12:02] MED LIST changes: +LEVFLO500 PO
[2021-07-28 13:41] LABS: BASOPHILS ABSOLUTE AUTO 0.11 K/mm3 (0.00-0.23); BASOPHILS PERCENT AUTO 1 % (0-2); EOSINOPHILS ABSOLUTE AUTO 0.31 K/mm3 (0.00-0.68); EOSINOPHILS PERCENT AUTO 2 % (0-6); Hematocrit 36.3 % (37.0-53.0); Hemoglobin 11.9 g/dL (13.5-17.5); IMMATURE GRAN ABSOLUTE AUTO 0.12 K/mm3 (0.00-0.10); IMMATURE GRAN PERCENT AUTO 1 % (0-1); LYMPHOCYTES ABSOLUTE AUTO 1.97 K/mm3 (0.84-5.20); LYMPHOCYTES PERCENT AUTO 15 % (21-46); MONOCYTES ABSOLUTE AUTO 0.87 K/mm3 (0.16-1.47); MONOCYTES PERCENT AUTO 7 % (4-13); Mean Corpuscular HGB Conc 32.8 g/dL (31.5-36.5); Mean Corpuscular Volume 88 fL (80-100); Mean Platelet Volume 8.5 fL (9.1-12.4); NEUTROPHILS ABSOLUTE AUTO 9.49 K/mm3 (1.96-9.15); NEUTROPHILS PERCENT AUTO 74 % (41-73); Platelet Count 880 K/mm3 (150-400); RDW Coefficient Variation 15.4 % (11.7-14.2); RDW Standard Deviation 49.5 fL (35.1-46.3); Red Blood Cell Count 4.11 M/mm3 (4.30-5.90); White Blood Cell Count 12.87 K/mm3 (4.00-11.30)
[2021-07-28 14:03] LABS: Albumin, Blood 3.6 g/dL (3.4-5.0); Albumin/Globulin Ratio 0.8 (0.8-1.8); Bilirubin, Total 0.4 mg/dL (0.1-1.0); Bun/Creatinine Ratio 44.2 (12.0-20.0); Calcium, Blood 9.5 mg/dL (8.5-10.1); Creatinine, Blood 0.52 mg/dL (0.60-1.20); Globulin, Blood 4.3 g/dL (2.2-4.0); Total Protein, Blood 7.9 g/dL (6.4-8.2)
[2021-07-28 14:54] LABS: Source, Urine Suprapubic Cath
[2021-07-28 15:03] LABS: Appearance, Urine Clear (Clear); Bilirubin, Urine Neg (Neg); Blood, Urine 5+ (Neg); Color, Urine Yellow (P-Yellow); Glucose Qualitative, Urine Neg (Neg); Ketones, Urine Neg (Neg); Leukocyte Esterase, Urine 1+ (Neg); Nitrite, Urine Neg (Neg); Protein, Urine Neg (Neg); Urobilinogen, Urine NORM (Normal)
[2021-07-28 15:22] LABS: Bacteria Mod /hpf; Squamous Epithelial Cells Rare /hpf (Few)
--- NOTE | 2021-07-28 19:16 | NUR ---
PT ARRIVED TO THE MEDICAL FLOOR FROM THE ER AROUND 1700, VIA GURNEY. THE PT IS QUADRAPLEGIC, SKIN INTACT. THE PT WAS MEDICATED FOR PAIN ON ARRIVAL TO THE MEDICAL FLOOR. PT WAS ORIENTED TO THE ROOM LAYOUT AND CALL SYSTEM. PT APPEARS TO BE BREATHING EASILY ON RA AT THIS TIME, CALL LIGHT IN REACH WILL CONTINUE TO MONITOR AND ASSESS FOR CHANGES
--- NOTE | 2021-07-28 22:04 | NUR ---
HANY FAJARDO CALLED (PT EMAIL OPERATIONS MANAGER). REQUESTED UPDATE, VOICED CONCERN THAT HE WAS RECEIVING ANTIBIOTICS FOR SEPSIS DUE TO UTI. VOICED HE "DIDNT HAVE UTI IN THE ER YESTERDAY". VOICED WOULD CALL THE ED FOR INFORMATION. PT RESTING QUIELTY. IVF INFUSING. CALL APPARATUS IN REACH.
[2021-07-28] MEDS ORDERED: Hydrocortisone10 MG PO (22:12)
[2021-07-28] MEDS ORDERED: Ventolin/Prove6.7 GM INH (22:32)
--- NOTE | 2021-07-29 04:00 | NUR ---
BUSINESS ANALYTICS SPECIALIST SUMMARY AT SHIFT [place], PT VOICED NEED TO HAVE BM, PLACED ON BEDPAN BUT NOT ABLE TO GO. DX OF SEPSIS DUE TO UTI. IVF OF NS AT 200 ML/HR WITH IV ANTIBIOTICS SCHEDULED ABOUT EVERY 6 HRS. BEING QUADROPLEGIC, REPOSITIONED ABOUT EVERY 2 HRS. NO NOTED BREAK DOWN. SUPRAPUBIC CATH DRAINING MARGOTH. VSS. UNALE TO USE CALL LIGHT DUE TO PHYSICAL LIMITS, TOUCH CALL LIGHT PLACED IN REACH. CURRENTLY RESTING QUIETLY. WILL CONTINUE TO MONITOR
[2021-07-29 04:40] LABS: BASOPHILS PERCENT AUTO 1 % (0-2); EOSINOPHILS ABSOLUTE AUTO 0.46 K/mm3 (0.00-0.68); EOSINOPHILS PERCENT AUTO 6 % (0-6); Hematocrit 28.3 % (37.0-53.0); Hemoglobin 9.1 g/dL (13.5-17.5); IMMATURE GRAN ABSOLUTE AUTO 0.06 K/mm3 (0.00-0.10); IMMATURE GRAN PERCENT AUTO 1 % (0-1); LYMPHOCYTES ABSOLUTE AUTO 2.58 K/mm3 (0.84-5.20); LYMPHOCYTES PERCENT AUTO 34 % (21-46); MONOCYTES ABSOLUTE AUTO 0.78 K/mm3 (0.16-1.47); MONOCYTES PERCENT AUTO 10 % (4-13); Mean Corpuscular HGB 28.9 pg (26.0-34.0); Mean Corpuscular HGB Conc 32.2 g/dL (31.5-36.5); Mean Corpuscular Volume 90 fL (80-100); Mean Platelet Volume 8.6 fL (9.1-12.4); NEUTROPHILS PERCENT AUTO 48 % (41-73); Platelet Count 671 K/mm3 (150-400); RDW Coefficient Variation 15.6 % (11.7-14.2); RDW Standard Deviation 50.7 fL (35.1-46.3); Red Blood Cell Count 3.15 M/mm3 (4.30-5.90); White Blood Cell Count 7.58 K/mm3 (4.00-11.30)
[2021-07-29 06:02] LABS: Albumin, Blood 2.7 g/dL (3.4-5.0); Albumin/Globulin Ratio 0.8 (0.8-1.8); Bilirubin, Total 0.4 mg/dL (0.1-1.0); Bun/Creatinine Ratio 33.4 (12.0-20.0); Calcium, Blood 8.4 mg/dL (8.5-10.1); Creatinine, Blood 0.54 mg/dL (0.60-1.20); Globulin, Blood 3.2 g/dL (2.2-4.0); Potassium, Blood 3.6 mmol/L (3.5-5.5)
[2021-07-29 06:08] LABS: Total Protein, Blood 5.9 g/dL (6.4-8.2)
[2021-07-29] MEDS ORDERED: CIPR500 PO (10:55)
--- NOTE | 2021-07-29 18:09 | NUR ---
pt discharged THE PT VERBALIZED UNDERSTANDING OF THE DC INSTRUCTIONS. THE PTS PRESCRIPTION WAS FAXED TO [facility] [place] REQUESTED. THE PT WAS A/OX4 AND APPEARED TO BE BREATHING EASILY ON RA AT THE TIME OF DC. THE PT WAS TRANSFERED VIA GURNEY ACCOMPANIED BY [facility]
--- NOTE | 2021-07-29 20:13 | NUR ---
CALLED FAMILY, SPOKE WITH JA R/T PERSONAL BED SHEET LEFT BEHIND. THEY WILL HOTEL ATTENDANT WHEN ABLE.
== END 2021-07-29 18:02 | disposition home or self-care (01) ==
LOC: ER 12:02 → MEDS 12:03 → ER 15:59 → MEDS 15:59
PROVIDERS: Emergency Medicine; Nurse Practitioner Acute Care; ADMIT Hospitalist
DX: T83.518A Infection and inflammatory reaction due to other urinary catheter, initial encounter (principal); A41.9 Sepsis, unspecified organism; N39.0 Urinary tract infection, site not specified; B96.5 Pseudomonas (aeruginosa) (mallei) (pseudomallei) as the cause of diseases classified elsewhere; Y73.8 Miscellaneous gastroenterology and urology devices associated with adverse incidents, not elsewhere classified; G92.8 Other toxic encephalopathy; G82.50 Quadriplegia, unspecified; G90.4 Autonomic dysreflexia; I95.9 Hypotension, unspecified; E27.40 Unspecified adrenocortical insufficiency; G89.4 Chronic pain syndrome; F11.20 Opioid dependence, uncomplicated; F32.9 Major depressive disorder, single episode, unspecified; F41.9 Anxiety disorder, unspecified; Z79.899 Other long term (current) drug therapy
CPT/HCPCS: 36415; 51705; 80053; 81001; 83605; 85025; 87086; 96361; 96365; 96367; 99285-25; A9270; C2627; G0378; J0744; J1650; J2543; J7030

== ENCOUNTER 2021-11-20 14:59 | Emergency (ER) | payer MEDICARE, OTHER ==
[~2021-11-20] VITALS: Ht 185.4 cm; Wt 97.5 kg
[~2021-11-20 14:59] MED LIST changes: +CIPR500 PO; +Hydrocortisone10 MG PO; +Ventolin/Prove6.7 GM INH
[2021-11-20 17:28] LABS: BASOPHILS ABSOLUTE AUTO 0.08 K/mm3 (0.00-0.23); BASOPHILS PERCENT AUTO 1 % (0-2); EOSINOPHILS PERCENT AUTO 2 % (0-6); Hematocrit 33.3 % (37.0-53.0); Hemoglobin 10.6 g/dL (13.5-17.5); IMMATURE GRAN ABSOLUTE AUTO 0.04 K/mm3 (0.00-0.10); IMMATURE GRAN PERCENT AUTO 0 % (0-1); LYMPHOCYTES ABSOLUTE AUTO 2.52 K/mm3 (0.84-5.20); LYMPHOCYTES PERCENT AUTO 18 % (21-46); MONOCYTES ABSOLUTE AUTO 1.52 K/mm3 (0.16-1.47); MONOCYTES PERCENT AUTO 11 % (4-13); Mean Corpuscular HGB 22.3 pg (26.0-34.0); Mean Corpuscular HGB Conc 31.8 g/dL (31.5-36.5); Mean Corpuscular Volume 70 fL (80-100); Mean Platelet Volume 9.3 fL (9.1-12.4); NEUTROPHILS ABSOLUTE AUTO 9.93 K/mm3 (1.96-9.15); NEUTROPHILS PERCENT AUTO 69 % (41-73); Platelet Count 424 K/mm3 (150-400); RDW Coefficient Variation 21.3 % (11.7-14.2); RDW Standard Deviation 50.4 fL (35.1-46.3); Red Blood Cell Count 4.75 M/mm3 (4.30-5.90); White Blood Cell Count 14.39 K/mm3 (4.00-11.30)
[2021-11-20 17:39] LABS: Bun/Creatinine Ratio 22.1 (12.0-20.0); Calcium, Blood 9.9 mg/dL (8.5-10.1); Creatinine, Blood 0.73 mg/dL (0.60-1.20); Potassium, Blood 4.2 mmol/L (3.5-5.5)
[2021-11-20 18:02] LABS: Source, Urine Foley catheter
[2021-11-20 18:07] LABS: Appearance, Urine Cloudy (Clear); Bilirubin, Urine Neg (Neg); Blood, Urine 4+ (Neg); Color, Urine Yellow (P-Yellow); Glucose Qualitative, Urine Neg (Neg); Ketones, Urine Neg (Neg); Leukocyte Esterase, Urine 3+ (Neg); Nitrite, Urine Pos (Neg); Protein, Urine 3+ (Neg); Urobilinogen, Urine NORM (Normal)
[2021-11-20 18:20] LABS: Mucus Mod (0-Heavy)
[2021-11-20 18:21] LABS: Bacteria Many /hpf; Squamous Epithelial Cells Rare /hpf (Few); White Blood Cells, Urine 25-50 /hpf (0-5)
[2021-11-20 18:22] LABS: Amorphous Light (0-Heavy)
[2021-11-20] MEDS ORDERED: CIPR500 PO (19:36)
== END 2021-11-20 22:13 | disposition home or self-care (01) ==
LOC: ER 14:59
PROVIDERS: Student in an Organized Health Care Education/Training Program
DX: G90.4 Autonomic dysreflexia (principal); N39.0 Urinary tract infection, site not specified; D72.829 Elevated white blood cell count, unspecified; Z88.2 Allergy status to sulfonamides; Z79.899 Other long term (current) drug therapy; Z79.82 Long term (current) use of aspirin
CPT/HCPCS: 51705; 51798; 80048; 81001; 83605; 85025; 87086; 96365-59; 99283-25; A9270; C2627; J0744; J7030

== ENCOUNTER 2021-12-05 22:57 | Inpatient (IN) | payer MEDICARE, OTHER ==
[~2021-12-05] VITALS: Ht 178 cm; Wt 95.2 kg
[2021-12-05 23:23] LABS: BASOPHILS ABSOLUTE AUTO 0.11 K/mm3 (0.00-0.23); BASOPHILS PERCENT AUTO 1 % (0-2); EOSINOPHILS ABSOLUTE AUTO 0.62 K/mm3 (0.00-0.68); EOSINOPHILS PERCENT AUTO 4 % (0-6); Hematocrit 33.3 % (37.0-53.0); Hemoglobin 10.1 g/dL (13.5-17.5); IMMATURE GRAN ABSOLUTE AUTO 0.06 K/mm3 (0.00-0.10); IMMATURE GRAN PERCENT AUTO 0 % (0-1); LYMPHOCYTES ABSOLUTE AUTO 5.03 K/mm3 (0.84-5.20); LYMPHOCYTES PERCENT AUTO 35 % (21-46); MONOCYTES ABSOLUTE AUTO 0.94 K/mm3 (0.16-1.47); MONOCYTES PERCENT AUTO 7 % (4-13); Mean Corpuscular HGB 22.3 pg (26.0-34.0); Mean Corpuscular HGB Conc 30.3 g/dL (31.5-36.5); Mean Corpuscular Volume 74 fL (80-100); Mean Platelet Volume 8.8 fL (9.1-12.4); NEUTROPHILS ABSOLUTE AUTO 7.52 K/mm3 (1.96-9.15); NEUTROPHILS PERCENT AUTO 53 % (41-73); Platelet Count 562 K/mm3 (150-400); RDW Coefficient Variation 22.5 % (11.7-14.2); RDW Standard Deviation 59.7 fL (35.1-46.3); Red Blood Cell Count 4.53 M/mm3 (4.30-5.90); White Blood Cell Count 14.28 K/mm3 (4.00-11.30)
[2021-12-05 23:43] LABS: Albumin, Blood 3.4 g/dL (3.4-5.0); Albumin/Globulin Ratio 0.9 (0.8-1.8); Bilirubin, Total 0.2 mg/dL (0.1-1.0); Bun/Creatinine Ratio 32.4 (12.0-20.0); Calcium, Blood 8.7 mg/dL (8.5-10.1); Creatinine, Blood 0.59 mg/dL (0.60-1.20); Globulin, Blood 3.7 g/dL (2.2-4.0); Potassium, Blood 3.5 mmol/L (3.5-5.5); Total Protein, Blood 7.1 g/dL (6.4-8.2)
[2021-12-06 03:28] LABS: Hematocrit 32.8 % (37.0-53.0); Hemoglobin 9.9 g/dL (13.5-17.5); Mean Corpuscular HGB 21.9 pg (26.0-34.0); Mean Corpuscular HGB Conc 30.2 g/dL (31.5-36.5); Mean Corpuscular Volume 73 fL (80-100); Mean Platelet Volume 8.9 fL (9.1-12.4); Platelet Count 550 K/mm3 (150-400); RDW Coefficient Variation 22.2 % (11.7-14.2); Red Blood Cell Count 4.52 M/mm3 (4.30-5.90); White Blood Cell Count 19.56 K/mm3 (4.00-11.30)
[2021-12-06 03:48] LABS: Albumin, Blood 3.3 g/dL (3.4-5.0); Bilirubin, Total 0.3 mg/dL (0.1-1.0); Bun/Creatinine Ratio 32.3 (12.0-20.0); Calcium, Blood 8.7 mg/dL (8.5-10.1); Creatinine, Blood 0.53 mg/dL (0.60-1.20); Globulin, Blood 3.4 g/dL (2.2-4.0); Potassium, Blood 3.6 mmol/L (3.5-5.5); Total Protein, Blood 6.7 g/dL (6.4-8.2)
[2021-12-06 05:12] LABS: Source, Urine Foley catheter
[2021-12-06 05:15] LABS: Appearance, Urine Hazy (Clear); Bilirubin, Urine Neg (Neg); Blood, Urine 1+ (Neg); Glucose Qualitative, Urine Neg (Neg); Ketones, Urine Neg (Neg); Leukocyte Esterase, Urine 3+ (Neg); Nitrite, Urine Neg (Neg); Protein, Urine Neg (Neg); Urobilinogen, Urine NORM (Normal)
[2021-12-06 05:34] LABS: Bacteria Many /hpf; Color, Urine Pale Yellow (P-Yellow); Red Blood Cells, Urine 0-2 /hpf (0-2); Squamous Epithelial Cells Few /hpf (Few)
[2021-12-06 05:36] LABS: Amorphous Mod (0-Heavy)
--- NOTE | 2021-12-06 09:08 | NUR ---
EXTUBATION DR MURDOCK AT BEDSIDE THIS AM, PLACED PT ON PRESSURE SUPPORT 7/8 FIO2 35%. PT DID WELL ON PRESSURE SUPPORT. PT NODS HEAD YES/NO TO QUESTIONS APPROPRIATELY. ORDERS TO EXTUBATED RECIEVED. RT AT BEDSIDE, PT EXTUBATED AT 0853 AND PLACED ON 4L O2 NC. SPO2 >94%. PT WITH STRONG COUGH EFFORT. WILL CONTINUE TO MONITOR.
--- NOTE | 2021-12-06 11:46 | NUR ---
DR OLSON/AMA UPDATE PT IS INSISTENT ABOUT GOING HOME AND IS REFUSING FURTHER TREATMENT AT THIS TIME. LENGHTY DISCUSSION WITH PT ABOUT CURRENT MEDICAL STATUS AND RECENT INTUBATION R/T RESPIRATORY FAILURE. DR MURDOCK NOTIFIED AND HAS SIGNED OFF THE PT CASE. DR OLSON UP TO BEDSIDE AT THIS TIME TO TALK WITH PT. PT CONTINUES TO WANT TO GO HOME DESPITE MEDICAL ADVICE TO STAY. DR OLSON GAVE PT WRITTEN PRESCRIPTION FOR ABX AND WILL HAVE PT SIGN AMA FORM TO LEAVE. PT ON BEDPAN AT THIS TIME. WILL PULL CENTRAL LINE AND ARRANGE TRANSPORT HOME FOR PT.
--- NOTE | 2021-12-06 14:18 | NUR ---
UPDATE PT CAREGIVER/COATING INSPECTOR HOME HERE TO SEE PT IN LIGHT OF PT WANTING TO LEAVE AMA. AFTER DISCUSSION WITH PATENT SEARCHER PT IS AGREEABLE TO STAY AT THIS TIME. HOME MED REC UPDATED WITH CAREGIVER. DR OLSON UPDATED TO PT WILLINGNESS TO STAY AND WILL PUT IN ORDERS FOR HOME MEDS. WILL CONTINUE TO MONITOR.
--- NOTE | 2021-12-06 14:59 | NUR ---
New referral received. Attempted visit this am but pt very somnolent, only wakeful for brief moments before falling asleep again. Will try again tomorrow to review advanced care planning/desired level of tx. Pt admitted with acute hypoxic resp failure, poss aspiration, septic shock and toxic metabolic encephalopathy. He has comobidities of quadraplegia, seizure disorder, UTIs, autonomic dysreflexia, chronic narcotic use. He resides in an adult foster home.
[2021-12-06 16:33] LABS: Source, Urine Suprapubic Cath
[2021-12-06 16:42] LABS: Appearance, Urine Hazy (Clear); Bilirubin, Urine Neg (Neg); Blood, Urine 5+ (Neg); Color, Urine Yellow (P-Yellow); Glucose Qualitative, Urine Neg (Neg); Ketones, Urine 4+ (Neg); Leukocyte Esterase, Urine 3+ (Neg); Nitrite, Urine Neg (Neg); Protein, Urine 3+ (Neg); Urobilinogen, Urine NORM (Normal)
--- NOTE | 2021-12-06 16:56 | NUR ---
SHIFT SUMMARY NO ACUTE CHANGES S/P EXTUBATION. PT REMAINS AWAKE, ALERT, AND ORIENTED. PT IS ABLE TO MAKE NEEDS KNOWN AND ANSWERS QUESTIONS APPROPRIATELY. VITAL SIGNS STABLE. PT ON ROOM AIR AT THIS TIME. PT ASSISTED WITH COUGHING, PT WITH GOOD COUGH EFFORT. CENTRAL LINE TO RIGHT FEMORAL SITE REMAINS C/D/I, NS INFUSING TKO. SUPRAPUBIC KELLER CHANGED OUT THIS SHIFT, NEW UA SENT. CLOUDY YELLOW OUTPUT NOTED. PT TAKES PO INTAKE WELL. MULTIPLE VISITORS IN THIS SHIFT TO SEE PT. WILL CONTINUE TO MONITOR AND REPORT OFF TO ONCOMING RN.
[2021-12-06 17:08] LABS: Bacteria Mod /hpf; Hyaline Casts 0-2 /lpf (0-2); Squamous Epithelial Cells Rare /hpf (Few); White Blood Cells, Urine 25-50 /hpf (0-5)
[2021-12-07 03:42] LABS: BASOPHILS ABSOLUTE AUTO 0.04 K/mm3 (0.00-0.23); BASOPHILS PERCENT AUTO 1 % (0-2); EOSINOPHILS ABSOLUTE AUTO 0.02 K/mm3 (0.00-0.68); EOSINOPHILS PERCENT AUTO 0 % (0-6); Hematocrit 27.6 % (37.0-53.0); Hemoglobin 8.4 g/dL (13.5-17.5); IMMATURE GRAN ABSOLUTE AUTO 0.02 K/mm3 (0.00-0.10); IMMATURE GRAN PERCENT AUTO 0 % (0-1); LYMPHOCYTES ABSOLUTE AUTO 0.62 K/mm3 (0.84-5.20); LYMPHOCYTES PERCENT AUTO 8 % (21-46); MONOCYTES ABSOLUTE AUTO 0.38 K/mm3 (0.16-1.47); MONOCYTES PERCENT AUTO 5 % (4-13); Mean Corpuscular HGB 21.8 pg (26.0-34.0); Mean Corpuscular HGB Conc 30.4 g/dL (31.5-36.5); Mean Corpuscular Volume 72 fL (80-100); NEUTROPHILS ABSOLUTE AUTO 6.81 K/mm3 (1.96-9.15); NEUTROPHILS PERCENT AUTO 86 % (41-73); Platelet Count 443 K/mm3 (150-400); RDW Standard Deviation 59.4 fL (35.1-46.3); Red Blood Cell Count 3.85 M/mm3 (4.30-5.90); White Blood Cell Count 7.89 K/mm3 (4.00-11.30)
[2021-12-07 04:04] LABS: Bun/Creatinine Ratio 21.1 (12.0-20.0); Calcium, Blood 8.4 mg/dL (8.5-10.1); Creatinine, Blood 0.57 mg/dL (0.60-1.20); Potassium, Blood 3.6 mmol/L (3.5-5.5)
--- NOTE | 2021-12-07 05:41 | NUR ---
PT RESTS QUIETLY THROUGHOUT SHIFT, COMPLIANT WITH Q 2 HOUR TURNS, TOLERATING PO INTAKE WELL, PRESSURES MAINTAIN SOFT HOWEVER PT STATES THAT HE TYPICALLY HAS A LOWER BLOOD PRESSURE AND MAPS HAVE MAINTAINED GREATER THAN 65. HE STATES THAT HE IS HOPEFUL FOR DISCHARGE TO HOME TODAY AND THAT HE HAS NOT HAD ANY DIFFICULTY BREATHING THIS SHIFT. OXYGEN WAS APPLIED VIA NASAL CANNULA AT 2 L/MIN FOR DESATS TO THE HIGH 80S WITH SLEEP. PT DENIES CPAP USE AT HOME.
--- NOTE | 2021-12-07 07:15 | NUR ---
Assumed care of pt at 0715 Report received from offgoing RN. Pt resting comfortably. He hopes to go back to his care facility today. Is currently PCU status, no bed availble. Has been doing well since extubation yesterday and is back to his baseline. RN to continue to monitor.
[2021-12-07] MEDS ORDERED: HYDCOR10 PO (14:30)
--- NOTE | 2021-12-07 17:00 | NUR ---
DISCHARGE NOTE PT TRANSPORTED VIA GURNEY ([facility]) TO [facility] WHERE HE RESIDES. PT ALERT AND ORIENTED, AGREEABLE TO DISCHARGE. ALL D/C TEACHING DONE AND ALL QUESTIONS ANSWERED. MEDICATIONS FAXED TO [facility], CONFIRMED RECIEPT OF MEDS WITH [facility] VIA PHONE. COMMUNICATED UPDATES TO FACILITY AND ADVISED OF TIME OF TRANSPORT WELL MEDICATIONS READY FOR PICKUP. ALL LINES D/C'D PRIOR TO D/C.
== END 2021-12-07 17:00 | disposition home or self-care (01) | DRG 871 ==
LOC: ER 22:57 → ICUW 12-06 02:07
PROVIDERS: Internal Medicine; Student in an Organized Health Care Education/Training Program; ADMIT Internal Medicine
PROC: 05H533Z Insertion of Infusion Device into Right Subclavian Vein, Percutaneous Approach (ICD-10-PCS; principal; 2021-12-06)
PROC: 3E033XZ Introduction of Vasopressor into Peripheral Vein, Percutaneous Approach (ICD-10-PCS; 2021-12-06)
PROC: 3E03329 Introduction of Other Anti-infective into Peripheral Vein, Percutaneous Approach (ICD-10-PCS; 2021-12-06)
PROC: 5A1935Z Respiratory Ventilation, Less than 24 Consecutive Hours (ICD-10-PCS; 2021-12-06)
PROC: 0BH17EZ Insertion of Endotracheal Airway into Trachea, Via Natural or Artificial Opening (ICD-10-PCS; 2021-12-06)
DX: A41.9 Sepsis, unspecified organism (principal); G82.50 Quadriplegia, unspecified; G92.8 Other toxic encephalopathy; J96.01 Acute respiratory failure with hypoxia; R65.21 Severe sepsis with septic shock; J69.0 Pneumonitis due to inhalation of food and vomit; T83.518A Infection and inflammatory reaction due to other urinary catheter, initial encounter; N39.0 Urinary tract infection, site not specified; E27.40 Unspecified adrenocortical insufficiency; G82.20 Paraplegia, unspecified; F11.10 Opioid abuse, uncomplicated; G90.4 Autonomic dysreflexia; G40.909 Epilepsy, unspecified, not intractable, without status epilepticus; D63.8 Anemia in other chronic diseases classified elsewhere; F41.8 Other specified anxiety disorders; Z88.2 Allergy status to sulfonamides; Z79.899 Other long term (current) drug therapy; Z79.82 Long term (current) use of aspirin; Z79.02 Long term (current) use of antithrombotics/antiplatelets; Z79.2 Long term (current) use of antibiotics; Z79.891 Long term (current) use of opiate analgesic; Z79.51 Long term (current) use of inhaled steroids; B96.4 Proteus (mirabilis) (morganii) as the cause of diseases classified elsewhere; Z98.890 Other specified postprocedural states
CPT/HCPCS: 31500; 36415; 51702; 70450; 71045; 80048; 80053; 81001; 82947; 83605; 84484; 85025; 85027; 87040; 87076; 87077; 87086; 87186; 93005; 93010; 94002; 94003; 94640; 94660; 94664; 94762; A9270; J1650; J1720; J2250; J2370; J2543; J2704; J3010; J3370; J7030; J7050; J7060; J7120

== ENCOUNTER 2022-06-20 15:25 | Emergency (ER) | payer MEDICARE, OTHER ==
[~2022-06-20] VITALS: Ht 185.4 cm; Wt 104.3 kg
[2022-06-20 15:33] VITALS: BP 106/64
== END 2022-06-20 20:41 | disposition home or self-care (01) ==
LOC: ER 15:25
DX: T83.090A Other mechanical complication of cystostomy catheter, initial encounter (principal); G82.50 Quadriplegia, unspecified; G40.909 Epilepsy, unspecified, not intractable, without status epilepticus; Z88.2 Allergy status to sulfonamides; Z79.899 Other long term (current) drug therapy; X58.XXXA Exposure to other specified factors, initial encounter
CPT/HCPCS: 51705; 99283-25; C2627

== ENCOUNTER 2022-09-25 18:40 | Emergency (ER) | payer MEDICARE, OTHER ==
[~2022-09-25] VITALS: Ht 182.9 cm; Wt 108.9 kg
[~2022-09-25 18:40] MED LIST changes: +CEFD300 PO
[2022-09-25] MEDS ORDERED: MELO7.5 (19:31)
[2022-09-25] MEDS ORDERED: LOPERAMIDE212 (19:31)
[2022-09-25] MEDS ORDERED: NYAMYC1513 (19:32)
[2022-09-25] MEDS ORDERED: MIDO5 (19:33)
[2022-09-25] MEDS ORDERED: GENTAMICIN100 MG/10 (19:37)
[2022-09-25] MEDS ORDERED: TOLTERODINE TART2 MG (19:38)
[2022-09-25] MEDS ORDERED: [UNRECOGNIZED DRUG - CODE] (19:39)
[2022-09-25 20:01] LABS: BASOPHILS ABSOLUTE AUTO 0.09 K/mm3 (0.00-0.23); BASOPHILS PERCENT AUTO 0 % (0-2); EOSINOPHILS ABSOLUTE AUTO 0.01 K/mm3 (0.00-0.68); EOSINOPHILS PERCENT AUTO 0 % (0-6); Hematocrit 33.8 % (37.0-53.0); Hemoglobin 11.2 g/dL (13.5-17.5); IMMATURE GRAN ABSOLUTE AUTO 0.15 K/mm3 (0.00-0.10); IMMATURE GRAN PERCENT AUTO 1 % (0-1); LYMPHOCYTES ABSOLUTE AUTO 1.23 K/mm3 (0.84-5.20); LYMPHOCYTES PERCENT AUTO 6 % (21-46); MONOCYTES ABSOLUTE AUTO 0.77 K/mm3 (0.16-1.47); MONOCYTES PERCENT AUTO 4 % (4-13); Mean Corpuscular HGB 26.7 pg (26.0-34.0); Mean Corpuscular HGB Conc 33.1 g/dL (31.5-36.5); Mean Corpuscular Volume 81 fL (80-100); Mean Platelet Volume 8.5 fL (9.1-12.4); NEUTROPHILS ABSOLUTE AUTO 19.53 K/mm3 (1.96-9.15); NEUTROPHILS PERCENT AUTO 90 % (41-73); Platelet Count 286 K/mm3 (150-400); RDW Coefficient Variation 19.8 % (11.7-14.2); RDW Standard Deviation 58.2 fL (35.1-46.3); White Blood Cell Count 21.78 K/mm3 (4.00-11.30)
[2022-09-25 20:27] LABS: Albumin/Globulin Ratio 0.8 (0.8-1.8); Bilirubin, Total 0.7 mg/dL (0.1-1.0); Bun/Creatinine Ratio 24.5 (12.0-20.0); Calcium, Blood 8.8 mg/dL (8.5-10.1); Creatinine, Blood 0.86 mg/dL (0.60-1.20); Globulin, Blood 3.8 g/dL (2.2-4.0); Potassium, Blood 3.5 mmol/L (3.5-5.5); Total Protein, Blood 6.8 g/dL (6.4-8.2)
[2022-09-25 21:30] LABS: Source, Urine Suprapubic Cath
[2022-09-25 21:35] LABS: Bilirubin, Urine Neg (Neg); Blood, Urine 2+ (Neg); Glucose Qualitative, Urine Neg (Neg); Ketones, Urine Neg (Neg); Leukocyte Esterase, Urine 3+ (Neg); Nitrite, Urine Neg (Neg); Protein, Urine 1+ (Neg); Specific Gravity, Urine 1.005 (1.003-1.022); Urobilinogen, Urine NORM (Normal)
[2022-09-25 21:36] LABS: Appearance, Urine Clear (Clear); Color, Urine Yellow (P-Yellow)
[2022-09-25 21:47] LABS: Bacteria Few /hpf; Mucus Light (0-Heavy); Red Blood Cells, Urine 0-2 /hpf (0-2); Squamous Epithelial Cells Few /hpf (Few); White Blood Cells, Urine 50-100 /hpf (0-5)
[2022-09-25] MEDS ORDERED: CEPH500 PO (23:05)
[2022-09-25] MEDS ORDERED: ACET500 PO (23:05)
[2022-09-25 23:45] VITALS: BP 112/97
== END 2022-09-26 00:05 | disposition home or self-care (01) ==
LOC: ER 18:40
PROVIDERS: Emergency Medicine
DX: N39.0 Urinary tract infection, site not specified (principal); L03.116 Cellulitis of left lower limb; Z88.2 Allergy status to sulfonamides; Z79.899 Other long term (current) drug therapy; Z79.82 Long term (current) use of aspirin; G40.909 Epilepsy, unspecified, not intractable, without status epilepticus; Z87.891 Personal history of nicotine dependence
CPT/HCPCS: 36415; 51705; 74177; 80053; 81001; 83605; 85025; 87040; 96360-59; 99284-25; J7030; Q9967

== ENCOUNTER 2023-01-08 16:00 | Emergency (ER) | payer MEDICARE, OTHER ==
[~2023-01-08] VITALS: Ht 185.4 cm; Wt 104.3 kg
[~2023-01-08 16:00] MED LIST changes: +ACET500 PO; +GENTAMICIN100 MG/10; +LOPERAMIDE212; +MELO7.5; +MIDO5; +NYAMYC1513; +TOLTERODINE TART2 MG; +[UNRECOGNIZED DRUG - CODE]
[2023-01-08 16:56] LABS: Source, Urine Suprapubic Cath
[2023-01-08 17:11] LABS: Appearance, Urine Turbid (Clear); Bilirubin, Urine Neg (Neg); Blood, Urine 2+ (Neg); Color, Urine Yellow (P-Yellow); Glucose Qualitative, Urine Neg (Neg); Ketones, Urine Neg (Neg); Leukocyte Esterase, Urine 3+ (Neg); Nitrite, Urine Pos (Neg); Protein, Urine 2+ (Neg); Specific Gravity, Urine 1.015 (1.003-1.022); Urobilinogen, Urine NORM (Normal)
[2023-01-08 17:43] LABS: Amorphous Heavy (0-Heavy); Bacteria Many /hpf; Red Blood Cells, Urine 0-2 /hpf (0-2); Squamous Epithelial Cells Rare /hpf (Few)
[2023-01-08 17:44] LABS: Triple Phosphate Crystals Many /hpf
[2023-01-08] MEDS ORDERED: CEFD300 PO (19:15)
[2023-01-08 19:38] VITALS: BP 106/80
== END 2023-01-08 22:52 | disposition home or self-care (01) ==
LOC: ER 16:00
PROVIDERS: Student in an Organized Health Care Education/Training Program
DX: T83.090A Other mechanical complication of cystostomy catheter, initial encounter (principal); T83.510A Infection and inflammatory reaction due to cystostomy catheter, initial encounter; N39.0 Urinary tract infection, site not specified; Y84.6 Urinary catheterization as the cause of abnormal reaction of the patient, or of later complication, without mention of misadventure at the time of the procedure; Z88.2 Allergy status to sulfonamides; Z79.899 Other long term (current) drug therapy; Z79.82 Long term (current) use of aspirin; G40.909 Epilepsy, unspecified, not intractable, without status epilepticus; G82.50 Quadriplegia, unspecified
CPT/HCPCS: 51798; 81001; 87086; 99283; A9270

== ENCOUNTER 2023-02-07 01:59 | Emergency (ER) | payer MEDICARE, OTHER ==
[~2023-02-07] VITALS: Ht 182.9 cm; Wt 113.4 kg
[2023-02-07 03:29] VITALS: BP 110/81
== END 2023-02-07 04:32 | disposition home or self-care (01) ==
LOC: ER 01:59
DX: T83.098A Other mechanical complication of other urinary catheter, initial encounter (principal); R51.9 Headache, unspecified; Y73.2 Prosthetic and other implants, materials and accessory gastroenterology and urology devices associated with adverse incidents; Z87.891 Personal history of nicotine dependence; Z87.440 Personal history of urinary (tract) infections
CPT/HCPCS: 51798; 99284

== ENCOUNTER 2023-03-05 15:19 | Emergency (ER) | payer MEDICARE, OTHER ==
[~2023-03-05] VITALS: Ht 182.9 cm; Wt 113.4 kg
[2023-03-05 20:30] VITALS: BP 139/95
== END 2023-03-05 20:39 | disposition home or self-care (01) ==
LOC: ER 15:19
DX: T83.090A Other mechanical complication of cystostomy catheter, initial encounter (principal); Y84.8 Other medical procedures as the cause of abnormal reaction of the patient, or of later complication, without mention of misadventure at the time of the procedure; Z79.890 Hormone replacement therapy; Z79.82 Long term (current) use of aspirin; Z88.2 Allergy status to sulfonamides; Z79.899 Other long term (current) drug therapy
CPT/HCPCS: 76770; 87086; 99284-25; C2627

== ENCOUNTER 2023-03-26 13:14 | Emergency (ER) | payer MEDICARE, OTHER ==
[~2023-03-26] VITALS: Ht 185.4 cm; Wt 113.4 kg
[2023-03-26 15:22] LABS: BASOPHILS PERCENT AUTO 2 % (0-2); EOSINOPHILS ABSOLUTE AUTO 0.39 K/mm3 (0.00-0.68); EOSINOPHILS PERCENT AUTO 6 % (0-6); Hematocrit 38.3 % (37.0-53.0); Hemoglobin 11.8 g/dL (13.5-17.5); IMMATURE GRAN ABSOLUTE AUTO 0.06 K/mm3 (0.00-0.10); IMMATURE GRAN PERCENT AUTO 1 % (0-1); LYMPHOCYTES ABSOLUTE AUTO 1.51 K/mm3 (0.84-5.20); LYMPHOCYTES PERCENT AUTO 23 % (21-46); MONOCYTES ABSOLUTE AUTO 0.75 K/mm3 (0.16-1.47); MONOCYTES PERCENT AUTO 11 % (4-13); Mean Corpuscular HGB 24.1 pg (26.0-34.0); Mean Corpuscular HGB Conc 30.8 g/dL (31.5-36.5); Mean Corpuscular Volume 78 fL (80-100); Mean Platelet Volume 9.2 fL (9.1-12.4); NEUTROPHILS PERCENT AUTO 58 % (41-73); Platelet Count 338 K/mm3 (150-400); RDW Coefficient Variation 22.6 % (11.7-14.2); RDW Standard Deviation 63.9 fL (35.1-46.3); White Blood Cell Count 6.71 K/mm3 (4.00-11.30)
[2023-03-26 15:47] LABS: Albumin, Blood 3.2 g/dL (3.4-5.0); Albumin/Globulin Ratio 0.8 (0.8-1.8); Bilirubin, Total 0.2 mg/dL (0.1-1.0); Bun/Creatinine Ratio 37.6 (12.0-20.0); Calcium, Blood 9.6 mg/dL (8.5-10.1); Creatinine, Blood 0.53 mg/dL (0.60-1.20); Globulin, Blood 3.8 g/dL (2.2-4.0); Potassium, Blood 3.6 mmol/L (3.5-5.5)
[2023-03-26 16:30] VITALS: BP 135/88
[2023-03-26 17:14] LABS: Source, Urine Suprapubic Cath
[2023-03-26 17:27] LABS: Appearance, Urine Bloody (Clear); Bilirubin, Urine Neg (Neg); Blood, Urine 5+ (Neg); Color, Urine Red (P-Yellow); Glucose Qualitative, Urine Neg (Neg); Ketones, Urine 1+ (Neg); Leukocyte Esterase, Urine 3+ (Neg); Nitrite, Urine Pos (Neg); Protein, Urine 3+ (Neg); Urobilinogen, Urine NORM (Normal)
[2023-03-26 17:50] LABS: Amorphous Mod (0-Heavy); Bacteria Many /hpf; Red Blood Cells, Urine TNTC /hpf (0-2); Squamous Epithelial Cells Rare /hpf (Few); White Blood Cells, Urine 50-100 /hpf (0-5)
[2023-03-26 17:51] LABS: Hyaline Casts 0-2 /lpf (0-2)
== END 2023-03-26 19:58 | disposition home or self-care (01) ==
LOC: ER 13:14
PROVIDERS: Student in an Organized Health Care Education/Training Program
DX: N99.512 Cystostomy malfunction (principal); G82.50 Quadriplegia, unspecified; Z22.322 Carrier or suspected carrier of Methicillin resistant Staphylococcus aureus; G40.909 Epilepsy, unspecified, not intractable, without status epilepticus; F41.9 Anxiety disorder, unspecified; F32.A Depression, unspecified; E27.40 Unspecified adrenocortical insufficiency; G90.4 Autonomic dysreflexia; Z79.899 Other long term (current) drug therapy; Z79.82 Long term (current) use of aspirin; Z79.890 Hormone replacement therapy; Z88.2 Allergy status to sulfonamides
CPT/HCPCS: 76770; 80053; 81001; 85025; 87086; 99284-25

== ENCOUNTER 2023-09-12 12:54 | Emergency (ER) | payer MEDICARE, OTHER ==
[~2023-09-12] VITALS: Ht 185.4 cm; Wt 104.3 kg
[~2023-09-12 12:54] MED LIST changes: +Amoxicillin500 MG PO; +B-1100 M1 PO; +BUPRENORPHINE HC2 MG SL; +BUPRENORPHN-NA1 EAC2 SL; +FLUO10 PO; +LIDO700A20 TOP; -MELO7.5; +MELO7.5 PO; -MIDO5; +NICO21TP TOP; +NITR100CA PO; +NYSTRIT TOP; +SENNA LAXATIVE8.6 MG PO; -TOLTERODINE TART2 MG; +TOLTERODINE TART2 MG PO; +TOPI50 PO
[2023-09-12] MEDS ORDERED: Ketorolac Tromethamine 30mg Vial IV ONE (13:35)
[2023-09-12] MEDS ORDERED: NS 1,000 ML IV ONE (13:35)
[2023-09-12 14:19] LABS: BASOPHILS PERCENT AUTO 1 % (0-2); EOSINOPHILS ABSOLUTE AUTO 0.54 K/mm3 (0.00-0.68); EOSINOPHILS PERCENT AUTO 7 % (0-6); Hematocrit 37.5 % (37.0-53.0); Hemoglobin 12.2 g/dL (13.5-17.5); IMMATURE GRAN ABSOLUTE AUTO 0.05 K/mm3 (0.00-0.10); IMMATURE GRAN PERCENT AUTO 1 % (0-1); LYMPHOCYTES ABSOLUTE AUTO 1.41 K/mm3 (0.84-5.20); LYMPHOCYTES PERCENT AUTO 17 % (21-46); MONOCYTES ABSOLUTE AUTO 0.83 K/mm3 (0.16-1.47); MONOCYTES PERCENT AUTO 10 % (4-13); Mean Corpuscular HGB 28.1 pg (26.0-34.0); Mean Corpuscular HGB Conc 32.5 g/dL (31.5-36.5); Mean Corpuscular Volume 86 fL (80-100); Mean Platelet Volume 8.9 fL (9.1-12.4); NEUTROPHILS PERCENT AUTO 64 % (41-73); Platelet Count 318 K/mm3 (150-400); RDW Coefficient Variation 18.5 % (11.7-14.2); RDW Standard Deviation 57.9 fL (35.1-46.3); Red Blood Cell Count 4.34 M/mm3 (4.30-5.90); White Blood Cell Count 8.23 K/mm3 (4.00-11.30)
[2023-09-12 14:42] LABS: Bun/Creatinine Ratio 37.9 (12.0-20.0); Creatinine, Blood 0.55 mg/dL (0.60-1.20); Potassium, Blood 3.8 mmol/L (3.5-5.5)
[2023-09-12] MEDS ORDERED: Lactulose 20 GM/30 ML UDC PO ONE (15:40)
[2023-09-12] MEDS ORDERED: Polyethylene Glycol 3350 17 gm PO ONE (15:40)
[2023-09-12] MEDS ORDERED: Water 500ML With 1 PKT Castile Soap Enema PR ONE (15:45)
[2023-09-12] MEDS ORDERED: HYDR1TAB94 PO (16:55)
[2023-09-12] MEDS ORDERED: Kristalose20 GM PO (16:55)
[2023-09-12 17:28] VITALS: BP 130/77
== END 2023-09-12 17:28 | disposition home or self-care (01) ==
LOC: ER 12:54
PROVIDERS: Emergency Medicine
DX: K59.00 Constipation, unspecified (principal); G82.50 Quadriplegia, unspecified; G40.909 Epilepsy, unspecified, not intractable, without status epilepticus; Z88.2 Allergy status to sulfonamides; Z79.82 Long term (current) use of aspirin; Z79.899 Other long term (current) drug therapy; Z79.890 Hormone replacement therapy
CPT/HCPCS: 74177; 80048; 85025; A9270; J1885; J7030; Q9967

== ENCOUNTER 2023-11-15 02:10 | Day surgery (SDC) | payer MEDICARE, OTHER ==
[~2023-11-15 02:10] MED LIST changes: +HYDR1TAB94 PO; +Kristalose20 GM PO
== END 2023-11-15 23:09 | disposition home or self-care (01) ==
LOC: WOUND 02:10
DX: L89.892 Pressure ulcer of other site, stage 2 (principal); S91.101A Unspecified open wound of right great toe without damage to nail, initial encounter; S91.102A Unspecified open wound of left great toe without damage to nail, initial encounter; I10 Essential (primary) hypertension; X58.XXXA Exposure to other specified factors, initial encounter
CPT/HCPCS: A6213; G0463

== ENCOUNTER 2023-11-22 03:29 | Day surgery (SDC) | payer MEDICARE, OTHER ==
[2023-11-22] MEDS ORDERED: Silver Nitr/Potassium Nitrate 1 EA APPL ONE (14:32)
== END 2023-11-22 23:00 ==
LOC: WOUND 03:29
DX: L89.893 Pressure ulcer of other site, stage 3 (principal); G82.50 Quadriplegia, unspecified; I10 Essential (primary) hypertension; E27.40 Unspecified adrenocortical insufficiency
CPT/HCPCS: A6196; A6213; A9270

== ENCOUNTER 2023-11-29 02:37 | Day surgery (SDC) | payer MEDICARE, OTHER | END 2023-11-29 23:00 | disposition home or self-care (01) | LOC: WOUND 02:37 | DX: L89.894 Pressure ulcer of other site, stage 4 (principal); G82.50 Quadriplegia, unspecified; I10 Essential (primary) hypertension; E27.40 Unspecified adrenocortical insufficiency | CPT/HCPCS: A6196; A6213 ==

== ENCOUNTER 2023-12-06 04:26 | Day surgery (SDC) | payer MEDICARE, OTHER | END 2023-12-06 23:17 | disposition home or self-care (01) | LOC: WOUND 04:26 | DX: L89.894 Pressure ulcer of other site, stage 4 (principal); G82.50 Quadriplegia, unspecified; I10 Essential (primary) hypertension | CPT/HCPCS: A6213; G0463 ==

== ENCOUNTER 2023-12-13 01:39 | Day surgery (SDC) | payer MEDICARE, OTHER | END 2023-12-13 23:00 | disposition home or self-care (01) | LOC: WOUND 01:39 | DX: L89.894 Pressure ulcer of other site, stage 4 (principal); G82.50 Quadriplegia, unspecified; I10 Essential (primary) hypertension; E27.40 Unspecified adrenocortical insufficiency | CPT/HCPCS: A6196; A6213; G0463 ==

== ENCOUNTER 2023-12-20 02:30 | Day surgery (SDC) | payer MEDICARE, OTHER | END 2023-12-20 23:00 | disposition home or self-care (01) | LOC: WOUND 02:30 | DX: L89.894 Pressure ulcer of other site, stage 4 (principal); I10 Essential (primary) hypertension; G82.50 Quadriplegia, unspecified; E27.40 Unspecified adrenocortical insufficiency | CPT/HCPCS: A6213; G0463 ==

== ENCOUNTER 2023-12-27 02:26 | Day surgery (SDC) | payer MEDICARE, OTHER | END 2023-12-27 23:00 | disposition home or self-care (01) | LOC: WOUND 02:26 | DX: L89.894 Pressure ulcer of other site, stage 4 (principal); G82.50 Quadriplegia, unspecified; I10 Essential (primary) hypertension; E27.40 Unspecified adrenocortical insufficiency | CPT/HCPCS: A6196; A6213 ==

== ENCOUNTER 2024-01-10 01:11 | Day surgery (SDC) | payer MEDICARE, OTHER | END 2024-01-10 23:25 | disposition home or self-care (01) | LOC: WOUND 01:11 | DX: L89.894 Pressure ulcer of other site, stage 4 (principal); T22.222A Burn of second degree of left elbow, initial encounter; I10 Essential (primary) hypertension; W29.2XXA Contact with other powered household machinery, initial encounter | CPT/HCPCS: A6213 ==

== ENCOUNTER 2024-01-17 05:41 | Day surgery (SDC) | payer MEDICARE, OTHER ==
[2024-01-17] MEDS ORDERED: Lidocaine HCl 4% Cream 5 GM ONE (15:28)
== END 2024-01-17 23:58 | disposition home or self-care (01) ==
LOC: WOUND 05:41
DX: L89.894 Pressure ulcer of other site, stage 4 (principal); T22.222A Burn of second degree of left elbow, initial encounter; I10 Essential (primary) hypertension; E27.40 Unspecified adrenocortical insufficiency
CPT/HCPCS: A9270

== ENCOUNTER 2024-01-24 03:03 | Day surgery (SDC) | payer MEDICARE, OTHER | END 2024-01-24 23:00 | disposition home or self-care (01) | LOC: WOUND 03:03 | DX: T14.8XXA Other injury of unspecified body region, initial encounter (principal) | CPT/HCPCS: A6213 ==

== ENCOUNTER 2024-01-31 04:46 | Day surgery (SDC) | payer MEDICARE, OTHER | END 2024-01-31 23:00 | disposition home or self-care (01) | LOC: WOUND 04:46 | DX: L89.894 Pressure ulcer of other site, stage 4 (principal); T22.222D Burn of second degree of left elbow, subsequent encounter; G82.50 Quadriplegia, unspecified; I10 Essential (primary) hypertension; E27.40 Unspecified adrenocortical insufficiency | CPT/HCPCS: G0463 ==

== ENCOUNTER 2024-02-20 03:47 | Day surgery (SDC) | payer MEDICARE, OTHER | END 2024-02-20 23:00 | disposition home or self-care (01) | LOC: WOUND 03:47 | DX: T22.222D Burn of second degree of left elbow, subsequent encounter (principal); I10 Essential (primary) hypertension; G82.50 Quadriplegia, unspecified ==

== ENCOUNTER 2024-02-27 04:47 | Day surgery (SDC) | payer MEDICARE, OTHER | END 2024-02-27 23:00 | disposition home or self-care (01) | LOC: WOUND 04:47 | DX: T22.222D Burn of second degree of left elbow, subsequent encounter (principal); L89.894 Pressure ulcer of other site, stage 4 ==

== ENCOUNTER 2024-03-05 04:21 | Day surgery (SDC) | payer MEDICARE, OTHER | END 2024-03-05 23:00 | disposition home or self-care (01) | LOC: WOUND 04:21 | DX: T22.222D Burn of second degree of left elbow, subsequent encounter (principal); L89.894 Pressure ulcer of other site, stage 4; I10 Essential (primary) hypertension | CPT/HCPCS: G0463 ==

== ENCOUNTER 2024-03-19 06:35 | Day surgery (SDC) | payer MEDICARE | END 2024-03-19 23:00 | disposition home or self-care (01) | LOC: WOUND 06:35 | DX: T22.222D Burn of second degree of left elbow, subsequent encounter (principal); L89.894 Pressure ulcer of other site, stage 4 | CPT/HCPCS: G0463 ==

== ENCOUNTER 2024-04-21 16:23 | Emergency (ER) | payer MEDICARE, OTHER ==
[~2024-04-21] VITALS: Ht 185.4 cm; Wt 97.5 kg
[2024-04-21] MEDS ORDERED: LORazepam 2 MG/ML 1ML Injection IV ONE ×2 (17:10→17:50)
[2024-04-21 17:15] LABS: BASOPHILS ABSOLUTE AUTO 0.09 K/mm3 (0.00-0.23); BASOPHILS PERCENT AUTO 1 % (0-2); EOSINOPHILS ABSOLUTE AUTO 0.18 K/mm3 (0.00-0.68); EOSINOPHILS PERCENT AUTO 3 % (0-6); Hemoglobin 13.1 g/dL (13.5-17.5); IMMATURE GRAN ABSOLUTE AUTO 0.02 K/mm3 (0.00-0.10); IMMATURE GRAN PERCENT AUTO 0 % (0-1); LYMPHOCYTES ABSOLUTE AUTO 1.24 K/mm3 (0.84-5.20); LYMPHOCYTES PERCENT AUTO 19 % (21-46); MONOCYTES ABSOLUTE AUTO 0.81 K/mm3 (0.16-1.47); MONOCYTES PERCENT AUTO 12 % (4-13); Mean Corpuscular HGB 31.4 pg (26.0-34.0); Mean Corpuscular HGB Conc 34.5 g/dL (31.5-36.5); Mean Corpuscular Volume 91 fL (80-100); Mean Platelet Volume 9.6 fL (9.1-12.4); NEUTROPHILS ABSOLUTE AUTO 4.27 K/mm3 (1.96-9.15); NEUTROPHILS PERCENT AUTO 65 % (41-73); Platelet Count 233 K/mm3 (150-400); RDW Standard Deviation 59.7 fL (35.1-46.3); Red Blood Cell Count 4.17 M/mm3 (4.30-5.90); White Blood Cell Count 6.61 K/mm3 (4.00-11.30)
[2024-04-21] MEDS ORDERED: NS 1,000 ML IV SCH (17:20)
[2024-04-21 17:29] LABS: Albumin, Blood 3.2 g/dL (3.4-5.0); Albumin/Globulin Ratio 0.9 (0.8-1.8); Bilirubin, Total 0.8 mg/dL (0.1-1.0); Bun/Creatinine Ratio 37.4 (12.0-20.0); Calcium, Blood 8.3 mg/dL (8.5-10.1); Creatinine, Blood 0.45 mg/dL (0.60-1.20); Globulin, Blood 3.5 g/dL (2.2-4.0); Potassium, Blood 4.2 mmol/L (3.5-5.5); Total Protein, Blood 6.7 g/dL (6.4-8.2)
[2024-04-21 18:28] LABS: Influenza A, PCR NEGATIVE (NEGATIVE); Influenza B, PCR NEGATIVE (NEGATIVE); Resp Syncytial Virus, PCR NEGATIVE (NEGATIVE); SARS-Cov-2 (COVID-19) PCR, MMC NEGATIVE (NEGATIVE)
[2024-04-21 18:43] LABS: Source, Urine Suprapubic Cath
[2024-04-21 18:48] LABS: Appearance, Urine Hazy (Clear); Bilirubin, Urine Neg (Neg); Blood, Urine 5+ (Neg); Color, Urine Amber (P-Yellow); Glucose Qualitative, Urine Neg (Neg); Ketones, Urine 4+ (Neg); Leukocyte Esterase, Urine 3+ (Neg); Nitrite, Urine Pos (Neg); Protein, Urine 3+ (Neg); Urobilinogen, Urine 1+ (Normal)
[2024-04-21 18:56] LABS: Granular Casts 0-2 /lpf (0)
[2024-04-21 18:57] LABS: Mucus Light (0-Heavy)
[2024-04-21 18:58] LABS: Bacteria Many /hpf; Hyaline Casts 0-2 /lpf (0-2); Red Blood Cells, Urine 50-100 /hpf (0-2); Squamous Epithelial Cells Rare /hpf (Few); White Blood Cells, Urine 25-50 /hpf (0-5)
[2024-04-21] MEDS ORDERED: Ciprofloxacin 500 MG Tab PO ONE (19:25)
[2024-04-21] MEDS ORDERED: CIPR250 PO (19:26)
[2024-04-21] MEDS ORDERED: CEPH500 PO (20:40)
[2024-04-21 22:00] VITALS: BP 129/95
== END 2024-04-21 22:05 | disposition home or self-care (01) ==
LOC: ER 16:23
PROVIDERS: Student in an Organized Health Care Education/Training Program
DX: N39.0 Urinary tract infection, site not specified (principal); Z87.891 Personal history of nicotine dependence; Z88.2 Allergy status to sulfonamides; Z79.82 Long term (current) use of aspirin; Z79.1 Long term (current) use of non-steroidal anti-inflammatories (NSAID); Z79.899 Other long term (current) drug therapy; Z79.2 Long term (current) use of antibiotics
CPT/HCPCS: 0241U; 36415; 51102; 80053; 81001; 82947; 83605; 85025; 87040; 87086; 93005; 93010; 99285-25; A9270; C2627; J2060; J7030

== ENCOUNTER 2024-09-27 17:43 | Emergency (ER) | payer MEDICARE, OTHER ==
[~2024-09-27] VITALS: Ht 185.4 cm; Wt 97.5 kg
[~2024-09-27 17:43] MED LIST changes: +CIPR250 PO
[2024-09-27 20:13] LABS: BASOPHILS ABSOLUTE AUTO 0.08 K/mm3 (0.00-0.23); BASOPHILS PERCENT AUTO 1 % (0-2); EOSINOPHILS ABSOLUTE AUTO 0.32 K/mm3 (0.00-0.68); EOSINOPHILS PERCENT AUTO 2 % (0-6); Hematocrit 41.3 % (37.0-53.0); Hemoglobin 13.9 g/dL (13.5-17.5); IMMATURE GRAN ABSOLUTE AUTO 0.07 K/mm3 (0.00-0.10); IMMATURE GRAN PERCENT AUTO 1 % (0-1); LYMPHOCYTES ABSOLUTE AUTO 1.77 K/mm3 (0.84-5.20); LYMPHOCYTES PERCENT AUTO 13 % (21-46); MONOCYTES ABSOLUTE AUTO 1.32 K/mm3 (0.16-1.47); MONOCYTES PERCENT AUTO 10 % (4-13); Mean Corpuscular HGB Conc 33.7 g/dL (31.5-36.5); Mean Corpuscular Volume 96 fL (80-100); NEUTROPHILS ABSOLUTE AUTO 10.06 K/mm3 (1.96-9.15); NEUTROPHILS PERCENT AUTO 74 % (41-73); NRBC ABSOLUTE 0.00 K/mm3 (0.00-0.02); NRBC Auto 0.0 /100 WBC (0.0-0.2); Platelet Count 388 K/mm3 (150-400); RDW Coefficient Variation 16.0 % (11.7-14.2); RDW Standard Deviation 57.3 fL (35.1-46.3)
[2024-09-27 20:35] LABS: Alanine Aminotransfer (ALT/SGP 16.0 U/L (12-78); Albumin, Blood 3.1 g/dL (3.4-5.0); Albumin/Globulin Ratio 0.7 (0.8-1.8); Anion Gap 12.0 mmol/L (3-11); Aspartate Aminotrans (AST/SGOT 15.0 U/L (12-37); Bilirubin, Total 0.5 mg/dL (0.1-1.0); Blood Urea Nitrogen 13.0 mg/dL (8-24); CO2, Blood 23.0 mmol/L (21-32); Calcium, Blood 8.7 mg/dL (8.5-10.1); Chloride, Blood 107.0 mmol/L (98-108); Creatinine, Blood 0.55 mg/dL (0.60-1.20); Globulin, Blood 4.4 g/dL (2.2-4.0); Glucose, Blood 75.0 mg/dL (70-99); Potassium, Blood 3.6 mmol/L (3.5-5.5); Sodium, Blood 138.0 mmol/L (136-145); Total Protein, Blood 7.5 g/dL (6.4-8.2)
[2024-09-27 22:46] VITALS: BP 148/58
== END 2024-09-27 22:50 | disposition home or self-care (01) ==
LOC: ER 17:43
PROVIDERS: Emergency Medicine
DX: G90.9 Disorder of the autonomic nervous system, unspecified (principal); Z79.899 Other long term (current) drug therapy; Z79.82 Long term (current) use of aspirin; Z88.2 Allergy status to sulfonamides
CPT/HCPCS: 70450; 80053; 85025; 93005; 93010; 99284-25

== ENCOUNTER → 2024-10-26 | Outpatient (CLI) | payer MEDICARE, OTHER | LOC: LAB SHORT 12:16 → LAB 12:16 | DX: L08.9 Local infection of the skin and subcutaneous tissue, unspecified (principal) | CPT/HCPCS: 87070; 87075; 87076; 87077; 87147; 87185; 87186; 87205 ==

== ENCOUNTER → 2024-12-03 | Outpatient (CLI) | payer MEDICARE, OTHER | LOC: LAB 19:26 → LAB SHORT 19:26 | DX: L89.313 Pressure ulcer of right buttock, stage 3 (principal) | CPT/HCPCS: 87070; 87205 ==

== ENCOUNTER 2024-12-05 03:40 | Day surgery (SDC) | payer MEDICARE, OTHER | END 2024-12-05 23:00 | disposition home or self-care (01) | LOC: WOUND 03:40 | DX: L89.314 Pressure ulcer of right buttock, stage 4 (principal); L89.324 Pressure ulcer of left buttock, stage 4; L89.892 Pressure ulcer of other site, stage 2; G82.50 Quadriplegia, unspecified; H40.9 Unspecified glaucoma; E27.40 Unspecified adrenocortical insufficiency; I10 Essential (primary) hypertension; Z88.2 Allergy status to sulfonamides | CPT/HCPCS: A6213; G0463 ==

== ENCOUNTER → 2024-12-07 | Outpatient (CLI) | payer MEDICARE, OTHER | LOC: LAB 16:18 → LAB SHORT 16:18 | DX: L89.314 Pressure ulcer of right buttock, stage 4 (principal) | CPT/HCPCS: 87070; 87147; 87205 ==

== ENCOUNTER 2024-12-12 00:46 | Day surgery (SDC) | payer MEDICARE, OTHER | END 2024-12-12 23:00 | disposition home or self-care (01) | LOC: WOUND 00:46 | DX: L89.314 Pressure ulcer of right buttock, stage 4 (principal); L89.324 Pressure ulcer of left buttock, stage 4; G82.50 Quadriplegia, unspecified; I10 Essential (primary) hypertension; E27.40 Unspecified adrenocortical insufficiency | CPT/HCPCS: A6213; G0463 ==

== ENCOUNTER 2024-12-20 13:34 | Emergency (ER) | payer MEDICARE, OTHER ==
[~2024-12-20] VITALS: Ht 182.9 cm; Wt 95.2 kg
[2024-12-20] MEDS ORDERED: Acetaminophen650 M1 PO (14:27)
[2024-12-20] MEDS ORDERED: ALBU90OI INH (14:28)
[2024-12-20] MEDS ORDERED: PEPTO-BISMOL T262 M2 PO (14:32)
[2024-12-20] MEDS ORDERED: DULO60 PO (14:32)
[2024-12-20] MEDS ORDERED: [UNRECOGNIZED DRUG - OTHER] PR (14:34)
[2024-12-20] MEDS ORDERED: HYDCOR2.5C (14:37)
[2024-12-20] MEDS ORDERED: MIDO5 PO (14:39)
[2024-12-20] MEDS ORDERED: MUPIROCIN2210 (14:39)
[2024-12-20] MEDS ORDERED: LOPE2C (14:39)
[2024-12-20] MEDS ORDERED: NYSTRIT (14:40)
[2024-12-20 16:05] LABS: Source, Urine Suprapubic Cath
[2024-12-20 16:13] LABS: Bilirubin, Urine Neg (Neg); Glucose Qualitative, Urine Neg (Neg); Ketones, Urine Neg (Neg); Leukocyte Esterase, Urine 3+ (Neg); Protein, Urine 3+ (Neg); Specific Gravity, Urine 1.010 (1.003-1.022); Urobilinogen, Urine 1+ (Normal)
[2024-12-20 16:25] LABS: Color, Urine Red (P-Yellow)
[2024-12-20 16:27] LABS: Red Blood Cells, Urine TNTC /hpf (0-2); White Blood Cells, Urine 50-100 /hpf (0-5)
[2024-12-20] MEDS ORDERED: Amoxicillin875 MG PO (16:42)
[2024-12-20 19:30] VITALS: BP 112/79
== END 2024-12-20 19:43 | disposition home or self-care (01) ==
LOC: ER 13:34
PROVIDERS: Student in an Organized Health Care Education/Training Program
DX: T83.090A Other mechanical complication of cystostomy catheter, initial encounter (principal); T83.510A Infection and inflammatory reaction due to cystostomy catheter, initial encounter; N39.0 Urinary tract infection, site not specified; Z88.2 Allergy status to sulfonamides; Z79.899 Other long term (current) drug therapy
CPT/HCPCS: 51705; 51798; 81001; 87086; 99283-25; A9270; C2627

== ENCOUNTER 2024-12-26 09:13 | Day surgery (SDC) | payer MEDICARE, OTHER ==
[~2024-12-26 09:13] MED LIST changes: +ALBU90OI INH; +Acetaminophen650 M1 PO; +HYDCOR2.5C; +LOPE2C; +MUPIROCIN2210; +NYSTRIT; +PEPTO-BISMOL T262 M2 PO; +[UNRECOGNIZED DRUG - OTHER] PR
== END 2024-12-26 23:00 | disposition home or self-care (01) ==
LOC: WOUND 09:13
DX: L89.314 Pressure ulcer of right buttock, stage 4 (principal); L89.324 Pressure ulcer of left buttock, stage 4; G82.50 Quadriplegia, unspecified; I10 Essential (primary) hypertension; E27.40 Unspecified adrenocortical insufficiency
CPT/HCPCS: A6213; G0463

== ENCOUNTER 2025-01-16 00:25 | Day surgery (SDC) | payer MEDICARE, OTHER | END 2025-01-16 23:32 | disposition home or self-care (01) | LOC: WOUND 00:25 | DX: L89.314 Pressure ulcer of right buttock, stage 4 (principal); L89.324 Pressure ulcer of left buttock, stage 4; L89.892 Pressure ulcer of other site, stage 2; L89.893 Pressure ulcer of other site, stage 3; G82.50 Quadriplegia, unspecified; I10 Essential (primary) hypertension; E27.40 Unspecified adrenocortical insufficiency; Z79.82 Long term (current) use of aspirin; Z79.890 Hormone replacement therapy; Z79.899 Other long term (current) drug therapy; Z88.2 Allergy status to sulfonamides | CPT/HCPCS: A6213; G0463 ==

== ENCOUNTER 2025-01-30 01:05 | Day surgery (SDC) | payer MEDICARE, OTHER | END 2025-01-30 23:57 | disposition home or self-care (01) | LOC: WOUND 01:05 | DX: L89.314 Pressure ulcer of right buttock, stage 4 (principal); L89.324 Pressure ulcer of left buttock, stage 4; L89.152 Pressure ulcer of sacral region, stage 2; L89.893 Pressure ulcer of other site, stage 3; G82.50 Quadriplegia, unspecified; Z88.2 Allergy status to sulfonamides | CPT/HCPCS: A6213; G0463 ==